=== PATIENT | female | born 1940 | race Caucasian/White ===

== ENCOUNTER 2019-05-15 23:23 | Inpatient (IN) | payer MEDICARE ==
--- NOTE | 2019-05-15 23:49 | ED ---
Lower Extremity - HPI Summary HPI Summary: The patient is an 78 y/o F arriving by ambulance to [facility] from [place] with a chief complaint of right hip pain extending down the leg to the foot onset around 2300. She reports that she had gotten up to go to the bathroom while using her walker and had a sudden onset of the hip pain that worsened with sitting. She describes the pain as a sensation of dislocation. Currently, her pain is rated 7/10 in severity. She notes there is numbness in the leg and foot. She has not taken any medication to treat the pain prior to arrival. She is unsure if she is able to ambulate on the leg as she has not made an attempt since onset. She had a similar experience when she had a dislocated hip with surgical interventions. 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 Garcia. Nonsmoker, no EtOH, no substance use. Medications reviewed. Allergies noted. - History of Current Complaint Chief Complaint: EDHipPelvisInjury Stated Complaint: RT HIP PAIN PER EMS Time Seen by Provider: 05/15/19 23:38 Hx Obtained From: Patient Mechanism Of Injury: Unknown - ambulated to bathroom Onset of Pain: Minutes Onset/Duration: Still Present - 2300 tonight Severity Initially: Moderate Severity Currently: Moderate Pain Intensity: 7 Pain Scale Used: 0-10 Numeric Timing: Lasting Minutes Location: Radiates To - right hip extending down leg Character Of Pain: Aching Associated Signs And Symptoms: Positive: Other - numbess throughout right leg Aggravating Factor(s): Ambulation, Other - sitting Alleviating Factor(s): Nothing Able to Bear Weight: No - pt unsure as she hasn't ambulated since onset Related History: Other - multiple hip dislocations - Allergies/Home Medications Allergies/Adverse Reactions: Allergies Allergy/AdvReac Type Severity Reaction Status Date / Time No Known Allergies Allergy Verified 01/12/18 15:46 Home Medications: Home Medications Aspirin 325 mg PO DAILY 05/16/19 [History Confirmed 05/17/19] Potassium 05/16/19 [History] PMH/Surg Hx/FS Hx/Imm Hx Endocrine/Hematology History: Reports: Hx Diabetes, Hx Thyroid Disease - THYROID LEVELS FINE NOW Cardiovascular History: Reports: Hx Deep Vein Thrombosis - filter inserted Denies: Other Cardiovascular Problems/Disorders - HX BLOOD CLOTS RIGHT LEG Respiratory History: Reports: Hx Asthma - as a child Denies: Other Respiratory Problems/Disorders History: Denies: Other Problems/Disorders Musculoskeletal History: Reports: Hx Arthritis - rheumatoid arthritis, Other Musculoskeletal History - 5 RIGHT HIP LISLOCATIONS Denies: Hx Osteoporosis Sensory History: Reports: Hx Cataracts, Hx Contacts or Glasses Denies: Hx Hearing Aid Opthamlomology History: Reports: Hx Cataracts, Hx Contacts or Glasses Neurological History: Reports: Hx Nerve Disease - CURRENT SHINGLES LEFT ARM AND LEFT PALM Denies: Other Neuro Impairments/Disorders Psychiatric History: Reports: Hx Depression - MILD, ON MEDS - Surgical History Surgical History: Yes Surgery Procedure, Year, and Place: RIGHT HIP total replacement in 2009 with revision in 2013, Dr. Garcia at [facility] [place] Hx Anesthesia Reactions: No Infectious Disease History: No Infectious Disease History: Reports: Hx Shingles - CURRENTLY, MD AWARE Denies: Hx Clostridium Difficile, Hx Hepatitis, Hx Human Immunodeficiency Virus (HIV), Hx of Known/Suspected MRSA, Hx Tuberculosis, Hx Known/Suspected VRE , Hx Known/Suspected VRSA, History Other Infectious Disease, Traveled Outside the [place] in Last 30 Days - Family History Known Family History: Positive: Hypertension, Diabetes - Social History Alcohol Use: None Hx Substance Use: No Substance Use Type: Reports: None Hx Tobacco Use: No Smoking Status (MU): Never Smoked Tobacco Have You Smoked in the Last Year: No Review of Systems - ROS Summary Review of Systems Summary: Home Medications Medication Instructions Recorded Confirmed Type Citalopram TAB* [CeleXA TAB*] 20 mg PO DAILY 02/23/13 05/15/19 History Mometasone NASAL (NF) [Nasonex 1 spray PO DAILY 02/23/13 05/15/19 History (NF)] Mycophenolate Mofetil TAB(*) 1,000 mg PO BID 02/23/13 05/15/19 History [Cellcept TAB(*)] Omeprazole CAP (NF) [Prilosec CAP*] 20 mg PO BID 02/23/13 05/15/19 History Lantus 10 units SUBCUT DAILY 07/25/13 05/15/19 History Acetaminophen TAB* [Tylenol TAB*] 325 mg PO DAILY 08/08/17 05/15/19 History Alendronate Sodium [Alendronate 70 mg PO WEEKLY 08/08/17 05/15/19 History Sodium-] Ciprofloxacin 0.3% OPTH.LAURA* 1 drop BOTH EYES QID 08/08/17 05/15/19 History [Cipro 0.3% Opth*] Erythromycin OPTH OINT* 1 applic RIGHT EYE QID 08/08/17 05/15/19 History [Erythromycin 0.5% OPTH OINT*] Calcium Carbonate/Vitamin D3 1 each PO DAILY 12/28/17 05/15/19 History [Calcium 500 + Vit D Caplet] Cyclosporine 0.05% OPHTH (NF) 1 drop BOTH EYES BID 12/28/17 05/15/19 History [Restasis 0.05% OPHTH] metFORMIN* [Glucophage 500 MG TAB 1,000 mg PO BID 12/28/17 05/15/19 History *] Positive: Other - pain in the right hip extending through the leg to the foot Positive: Numbness - in the right leg All Other Systems Reviewed And Are Negative: Yes Physical Exam - Summary Physical Exam Summary: General: Well-developed, Well-nourished elderly female. No acute distress. Neck: Soft, FROM, (-) lymphadenopathy, (-) thyromegaly, (-) JVD. Cardiovascular: Normal sinus rhythm, (-) murmur. Lungs: Clear to auscultation bilaterally (-) wheezes, (-) rales, (-) rhonchi. Abdomen: Soft, non-tender, non-distended, (-) organomegaly, normal bowel sounds. Back: (-) CVA tenderness Extremities: Tenderness along the right hip and lateral upper thigh. Normal strength and sensation in the right leg. No edema. Skin: Warm, dry, (-) rash. Neuro: Alert and oriented x3, no focal deficits. Psychiatric: Mood normal, affect normal. Triage Information Reviewed: Yes Vital Signs On Initial Exam: Initial Vitals Temp Pulse Resp BP Pulse Ox 97.7 F 75 16 160/81 100 05/15/19 23:27 05/15/19 23:27 05/15/19 23:27 05/15/19 23:27 05/15/19 23:27 Vital Signs Reviewed: Yes Procedures - Sedation Patient Received Moderate/Deep Sedation with Procedure: No Diagnostics - Vital Signs Vital Signs Temp Pulse Resp BP Pulse Ox 05/15/19 23:27 97.7 F 75 16 160/81 100 - Laboratory Result Diagrams: 05/17/19 13:15 05/17/19 05:06 Lab Statement: Any lab studies that have been ordered have been reviewed, and results considered in the medical decision making process. - Radiology Right Hip X-Ray Radiology Interpretation Completed By: ED Physician Summary of Radiographic Findings: Artificial hip on the right. Dislocated superiorly. ED physician has reviewed and interpreted this report. Pending official read. Re-Evaluation - Re-Evaluation First Eval Re-Evaluation Time: 01:20 Change: Unchanged Comment: I discussed all findings with the patient and her son including plan for admission. We discussed plan for administering Fentanyl for pain control. Lower Extremity Course/Dx - Course Course Of Treatment: 78-year-old female with right hip pain after sitting tonight. Patient found to have a dislocation of her right artificial hip. She states she had this hip replaced many years ago. Then had dislocations about 5 times after that. Had it revised. Has been doing well since then until tonight. Patient given fentanyl for pain control. Discussed with orthopedics dermatological surgeon. Patient admitted to the hospitalist. Plan on orthopedic surgery today. - Diagnoses Provider Diagnoses: Dislocation of right hip - Physician Notifications Discussed Care Of Patient With: Yenni Russo - orthopedics Time Discussed With Above Provider: 01:05 Instructed by Provider To: Other - I discussed the patient's case with Dr. Russo including findings on the x-ray. After reviewing the x-ray, she recommends admission to the hospitalist services for pain control with surgery in the OR in the morning. At 0115, I spoke with Dr. Snell, hospitalist, who accepts the pt for admission. Discharge ED - Sign-Out/Discharge Documenting (check all that apply): Patient Departure - Pt accepted for admission by Dr. Snell. - Discharge Plan Condition: Stable Disposition: ADMITTED TO [facility] - Billing Disposition and Condition Condition: STABLE Disposition: Admitted to [facility] - Attestation Statements Document Initiated by Scribe: Yes Documenting Scribe: Lana Pearson Provider For Whom Scribe is Documenting (Include Credential): Dr. Cherise Osei MD Scribe Attestation: Lana Sebastian, scribed for Dr. Cherise Osei MD on 05/17/19 at 2105. Scribe Documentation Reviewed: Yes Provider Attestation: The documentation as recorded by the scribe, Lana Pearson accurately reflects the service I personally performed and the decisions made by me, Dr. Cherise Osei MD Status of Scribe Document: Viewed
--- OUTSIDE RECORDS SUMMARY | 2019-05-15 23:59 | XMS REPORT | Continuity of Care Document ---
:1940 External Reference #:[id number] Author Name Yao Garcia M.D. Address [address] [place] [address] Care Team Providers Name Role Phone Anthony Garvey M.D. - Internal Care Team Information Senior Instructor [phone] Medicine Jayson Lau [employer] - Nurse Care Team Information Senior Instructor [phone] Practitioner Anthony Sahni M.D. - Ophthalmology Care Team Information Senior Instructor Anthony Vidales M.D. - Care Team Information Senior Instructor [phone] Ophthalmology Anthony Saucedo MD - Rheumatology Care Team Information Senior Instructor [phone] Problems Active Problems Provider Date Psoriasis Onset: Hypothyroidism Onset: Type 2 diabetes mellitus Onset: Note: 04/2010 Rheumatoid arthritis Onset: Depressive disorder Onset: Herpes zoster Onset: Corneal ulcer Anthony Acosta M.D. Onset: 01/12/2015 Nuclear senile cataract Anthony Acosta M.D. Onset: 01/12/2015 Combined form of senile cataract Anthony Acosta M.D. Onset: 08/31/2015 Corneal opacity Janneth Levy O.D. Onset: 11/26/2015 Perforated corneal ulcer Anthony Acosta M.D. Onset: 02/28/2017 Seasonal allergy Onset: Marginal corneal ulcer Yao Garcia M.D. Onset: 08/22/2018 Social History Type Date Description Comments Sex Unknown ETOH Use Denies alcohol use Tobacco Use Start: Unknown Patient has never smoked Recreational Drug Use Denies Drug Use Smoking Status Reviewed: 04/02/19 Patient has never smoked Allergies, Adverse Reactions, Alerts Active Allergies Reaction Severity Comments Date Environmental 05/18/2017 Medications Active Medications SIG Qnty Indications Ordering Provider Date Erythromycin Apply To Both 3.500gm H16.041 Yao Garcia, 10/04/2018 5mg/GM Eyes AT Night M.D. Ointment Citalopram Anthony Garvey Hydrobromide M.D. 20mg Tablets Calcium 500 +D Unknown [id number] Tablets Mycophenolate Mofetil 2 twice a day SidJayson NP 500mg Tablets Fluticasone Propionate Anthony Garvey M.D. 50mcg/Act Suspension Restasis 1 drops both 180units Yao Garcia, 0.05% Emulsion eyes twice a M.D. day Ra Cetirizine Unknown 10mg Tablets Metformin HCL ER (Mod) twice a day Anthony Garvey M.[place] 500mg Tablets ER 24HR Aspirin 1 by mouth Unknown 325mg Tablets every day Vitamin D 2 tabs once a Unknown (Cholecalciferol) day in fall/winter, 1 1000Unit Tablets tab/day spring/summer Immunizations Description No Information Available Vital Signs Date Vital Result Comment 05/18/2017 9:11am BP Systolic 100 mmHg BP Diastolic 63 mmHg Heart Rate 76 /min Respiratory Rate 12 /min Results Description No Information Available Procedures Date Code Description Status 02/19/2019 28866 Est Patient Intermediate Exam Completed Medical Devices Description No Information Available Encounters Type Date Location Provider Dx Diagnosis Office Visit 01/08/2019 Yao Camilo, H16.041 Marginal corneal 9:00a romero SUÁREZ M.D. ulcer, right eye Office Visit 11/29/2018 Yao Camilo, H16.041 Marginal corneal 1:30p romero SUÁREZ M.D. ulcer, right eye Office Visit 11/08/2018 Yao Camilo, H16.041 Marginal corneal 11:45a romero SUÁREZ M.D. ulcer, right eye Office Visit 10/04/2018 Anthony Acosta, Yao Garcia, H16.041 Marginal corneal 2:15p romero SUÁREZ M.D. ulcer, right eye Assessments Date Code Description Provider 04/02/2019 H16.041 Marginal corneal ulcer, right eye Yao Garcia M.D. 02/19/2019 H16.041 Marginal corneal ulcer, right eye Yao Garcia M.D. 01/08/2019 H16.041 Marginal corneal ulcer, right eye Yao Garcia M.D. 11/29/2018 H16.041 Marginal corneal ulcer, right eye Yao Garcia M.D. 11/08/2018 H16.041 Marginal corneal ulcer, right eye Yao Garcia M.D. 10/04/2018 H16.041 Marginal corneal ulcer, right eye Yao Garcia M.D. Plan of Treatment 04/02/2019 - Yao Garcia M.D.H16.041 Marginal corneal ulcer, right eyeComments:Smoking can increase the risk of developing or worsening any eye related disease, as well as affect your overall health. If you are a smoker, we strongly recommend that you quit.If you are not a smoker, we strongly recommend that you do not start. You have a Corneal Ulcer in your right eye. Please follow Dr. Garcia's instructions.Follow up:2 Month Follow Up CORNEA CHECK At your next visit, we are not planning to dilate your eyes. However, if you have any changes in your vision or new symptoms, there are certain situations that require us to dilate your eyes. If Dr. Garcia requests any additional testing, that may require extra time. If you have any questions before your next appointment, please call our office at . Functional Status Description No Information Available Mental Status Description No Information Available Referrals Description No Information Available
--- OUTSIDE RECORDS SUMMARY | 2019-05-15 23:59 | XMS REPORT | Continuity of Care Document ---
:1940 External Reference #:[id number] Author Name KRISTIN Gupta (transmitted by agent of provider Earnestine Porter) Address [address] [place] [id number] Care Team Providers Name Role Phone Anthony Garvey MD - Family Medicine Care Team Information Breastfeeding Educator Anthony Acosta MD - Ophthalmology Care Team Information Breastfeeding Educator Problems Active Problems Provider Date Mooren's ulcer Joseph Alvarez M.D. Onset: 05/14/2012 Corneal ulcer Joseph Alvarez M.D. Onset: 05/14/2012 Medications [facility] (Current) Use Encounter Joseph Alvarez M.D. Onset: Psoriasis Joseph Alvarez M.D. Onset: 10/12/2012 Osteoporosis Joseph Alvarez M.D. Onset: 09/18/2013 Taking medication KRISTIN Gupta Onset: 07/11/2014 Localized, primary osteoarthritis of the pelvic Leah Marry Garcia Onset: region and thigh Social History Type Date Description Comments Sex Unknown Tobacco Use Start: Unknown Never Smoked Cigarettes Smoking Status Reviewed: 04/18/19 Never Smoked Cigarettes ETOH Use Never used alcohol Tobacco Use Start: Unknown Patient has never smoked Exercise Type/Frequency Exercises regularly Allergies, Adverse Reactions, Alerts Active Allergies Reaction Severity Comments Date Methotrexate 08/12/2013 Inactive Allergies NKDA 12/21/2010 Methotrexate severe abnormal liver tests feb-04/19/2011 NKDA 08/12/2013 Medications Active Medications SIG Qnty Indications Ordering Date Provider Ra Allergy Relief take 1 tablet by 30tabs J30.9 Anthony Saucedo, 02/27/2019 10mg mouth every M.D. Tablets evening Celexa 1 1/2 tablets by 90tabs Jayson Lau, 02/18/2019 20mg Tablets mouth every day [employer] Rituxan administer 375 Jayson Lau, 06/06/2018 100mg/10ML mg/m2 iv every 12 [employer] Solution weeks Mycophenolate Mofetil take 2 tablets by 120tabs Z79.899 Jayson Lau, mouth twice a day [employer] 500mg Tablets H16.001 Calcium 600-D 1 by mouth M85.9 Unknown [id number] Tablets Simply Saline Unknown 0.9% Aerosol Tylenol as needed Unknown 325mg Tablets Erythromycin apply into three eye four Unknown 5mg/GM Ointment times a day Restasis Unknown 0.05% Emulsion Potassium every morning (OTC) Unknown 99mg Tablets Aspirin Ec take 1 tab daily. Unknown 325mg Tablets DR Metformin HCL 1 by mouth twice a day E11.65 Unknown 500mg Tablets Medications Administered in Office Medication SIG Qnty Indications Ordering Provider Date Humira No Charge Jayson LauKRISTIN 06/13/2017 Injection Humira No Charge Nurse Visit 05/30/2017 Injection Immunizations CPT Code Status Date Vaccine Reaction Lot # [id number] Given 05/23/2017 Pneumonia Vaccine [id number] Given 03/30/2017 Influenza Virus Vaccine, no immediate reaction, [id number] Quadrivalent, Split, pt tolerated well Preservative Free [id number] Given 04/29/2015 Pneumococcal Conjugate Vaccine 13 Valent For Intramuscular Use Vital Signs Date Vital Result Comment 04/18/2019 11:06am Height 65.25 inches 5'5.25" Weight 126.00 lb BP Systolic 104 mmHg BP Diastolic 62 mmHg BMI (Body Mass Index) 20.8 kg/m2 02/18/2019 2:50pm Height 65.25 inches 5'5.25" Weight 128.12 lb Heart Rate 86 /min BP Systolic 100 mmHg BP Diastolic 58 mmHg Body Temperature 98.0 F O2 % BldC Oximetry 97 % BMI (Body Mass Index) 21.2 kg/m2 Results Test Date Facility Test Result H/L Range Note Laboratory test 03/21/2019 [facility] Quantiferon Gold <pending > finding [address] [place] [address] [phone] Hepatitis Acute 03/21/2019 [facility] Hepatitis C <pending> Panel [address] [place] [address] [phone] Hepatitis A AB Igm <pending> Hepatitis B Core AB Igm <pending> Hepatitis B Surface Ag <pending> Laboratory test 03/21/2019 [facility] C Reactive < 1.00 Normal <8.[address] Protein mg/[place] [address] [phone] Erythrocyte Sed Rate 3 mm/Hr Normal 0-29 CBC Auto 03/21/2019 [facility] White Blood 7.2 10^3/uL Normal 3.5-10.[address] [place] [address] [phone] Red Blood Count 5.12 10^6/uL High 3.70-4.87 Hemoglobin 14.2 g/dL Normal 12.0-16.0 Hematocrit 43 % Normal 35-47 Mean Corpuscular Volume 85 fL Normal 80-97 Mean Corpuscular Hemoglobin 28 pg Normal 27-31 Mean Corpuscular HGB Conc 33 g/dL Normal 31-36 Red Cell Distribution Width 14 % Normal 10-15 Platelet Count 282 10^3/uL Normal 150-450 Mean Platelet Volume 8.1 fL Normal 7.4-10.4 Abs Neutrophils 4.2 10^3/uL Normal 1.5-7.7 Abs Lymphocytes 2.1 10^3/uL Normal 1.0-4.8 Abs Monocytes 0.7 10^3/uL Normal 0-0.8 Abs Eosinophils 0.3 10^3/uL Normal 0-0.6 Abs Basophils 0.0 10^3/uL Normal 0-0.2 Abs Nucleated RBC 0.0 10^3/uL Granulocyte % 57.5 % Lymphocyte % 28.4 % Monocyte % 9.0 % Eosinophil % 4.4 % Basophil % 0.7 % Nucleated Red Blood Cells % 0.0 Comp Metabolic 03/21/2019 [facility] Sodium 138 mmol/L Normal 135-[address] [place] [address] [phone] Potassium 4.4 mmol/L Normal 3.5-5.0 Chloride 103 mmol/L Normal 101-111 Co2 Carbon Dioxide 28 mmol/L Normal 22-32 Anion Gap 7 mmol/L Normal 2-11 Glucose 149 mg/dL High 70-100 Blood Urea Nitrogen 19 mg/dL Normal 6-24 Creatinine 0.61 mg/dL Normal 0.51-0.95 BUN/Creatinine Ratio 31.1 High 8-20 Calcium 9.5 mg/dL Normal 8.6-10.3 Total Protein 6.4 g/dL Normal 6.4-8.9 Albumin 4.2 g/dL Normal 3.2-5.2 Globulin 2.2 g/dL Normal 2-4 Albumin/Globulin Ratio 1.9 Normal 1-3 Total Bilirubin 0.40 mg/dL Normal 0.2-1.0 Alkaline Phosphatase 41 U/L Normal 34-104 Alt 13 U/L Normal 7-52 Ast 17 U/L Normal 13-39 Egfr Non- 94.4 >60 Egfr 114.2 >60 1 CBC Auto 01/28/2019 [facility] White Blood 5.8 10^3/uL Normal 3.5-10.[address] [place] [address] [phone] Red Blood Count 4.97 10^6/uL High 3.70-4.87 Hemoglobin 14.2 g/dL Normal 12.0-16.0 Hematocrit 41 % Normal 35-47 Mean Corpuscular Volume 82 fL Normal 80-97 Mean Corpuscular Hemoglobin 29 pg Normal 27-31 Mean Corpuscular HGB Conc 35 g/dL Normal 31-36 Red Cell Distribution Width 14 % Normal 10-15 Platelet Count 248 10^3/uL Normal 150-450 Mean Platelet Volume 8.5 fL Normal 7.4-10.4 Abs Neutrophils 3.4 10^3/uL Normal 1.5-7.7 Abs Lymphocytes 1.6 10^3/uL Normal 1.0-4.8 Abs Monocytes 0.6 10^3/uL Normal 0-0.8 Abs Eosinophils 0.2 10^3/uL Normal 0-0.6 Abs Basophils 0.0 10^3/uL Normal 0-0.2 Abs Nucleated RBC 0.0 10^3/uL Granulocyte % 58.7 % Lymphocyte % 27.4 % Monocyte % 9.9 % Eosinophil % 3.8 % Basophil % 0.2 % Nucleated Red Blood Cells % 0.0 Comp Metabolic 01/28/2019 [facility] Sodium 139 mmol/L Normal 135-[address] [place] [address] [phone] Potassium 4.3 mmol/L Normal 3.5-5.0 Chloride 104 mmol/L Normal 101-111 Co2 Carbon Dioxide 27 mmol/L Normal 22-32 Anion Gap 8 mmol/L Normal 2-11 Glucose 188 mg/dL High 70-100 Blood Urea Nitrogen 24 mg/dL Normal 6-24 Creatinine 0.85 mg/dL Normal 0.51-0.95 BUN/Creatinine Ratio 28.2 High 8-20 Calcium 9.4 mg/dL Normal 8.6-10.3 Total Protein 6.2 g/dL Low 6.4-8.9 Albumin 4.1 g/dL Normal 3.2-5.2 Globulin 2.1 g/dL Normal 2-4 Albumin/Globulin Ratio 2.0 Normal 1-3 Total Bilirubin 0.50 mg/dL Normal 0.2-1.0 Alkaline Phosphatase 37 U/L Normal 34-104 Alt 12 U/L Normal 7-52 Ast 17 U/L Normal 13-39 Egfr Non- 64.4 >60 Egfr 77.9 >60 2 Laboratory test 01/28/2019 [facility] C Reactive < 1.00 Normal <8.01 finding 101 Protein mg/[place] [address] [phone] Erythrocyte Sed Rate 3 mm/Hr Normal 0-29 Laboratory test 11/19/2018 [facility] Hemoglobin A1c 8.8 % High 4.0-5.6 3 finding 101 (Glyco HGB) [place] [address] [phone] Comp Metabolic 11/19/2018 [facility] Sodium 133 Low 135-[address] mmol/[place] [address] [phone] Potassium 4.0 mmol/L Normal 3.5-5.0 Chloride 101 mmol/L Normal 101-111 Co2 Carbon Dioxide 21 mmol/L Low 22-32 Anion Gap 11 mmol/L Normal 2-11 Glucose 192 mg/dL High 70-100 Blood Urea Nitrogen 33 mg/dL High 6-24 Creatinine 0.68 mg/dL Normal 0.51-0.95 BUN/Creatinine Ratio 48.5 High 8-20 Calcium 9.2 mg/dL Normal 8.6-10.3 Total Protein 6.9 g/dL Normal 6.4-8.9 Albumin 4.3 g/dL Normal 3.2-5.2 Globulin 2.6 g/dL Normal 2-4 Albumin/Globulin Ratio 1.7 Normal 1-3 Total Bilirubin 0.50 mg/dL Normal 0.2-1.0 Alkaline Phosphatase 41 U/L Normal 34-104 Alt 16 U/L Normal 7-52 Ast 19 U/L Normal 13-39 Egfr Non- 83.3 >60 Egfr 100.7 >60 4 Laboratory test 11/19/2018 [facility] C Reactive < 1.00 Normal <8.[address] Protein mg/[place] [address] [phone] CBC Auto Diff 11/19/2018 [facility] White Blood 7.5 Normal 3.5 -10.[address] Count 10^3/[place] [address] [phone] Red Blood Count 5.44 10^6/uL High 3.70-4.87 Hemoglobin 14.9 g/dL Normal 12.0-16.0 Hematocrit 45 % High 33-41 Mean Corpuscular Volume 83 fL Normal 80-97 Mean Corpuscular Hemoglobin 27 pg Normal 27-31 Mean Corpuscular HGB Conc 33 g/dL Normal 31-36 Red Cell Distribution Width 15 % Normal 10.5-15 Platelet Count 274 10^3/uL Normal 150-450 Mean Platelet Volume 8.0 fL Normal 7.4-10.4 Abs Neutrophils 4.1 10^3/uL Normal 1.5-7.7 Abs Lymphocytes 2.3 10^3/uL Normal 1.0-4.8 Abs Monocytes 0.8 10^3/uL Normal 0-0.8 Abs Eosinophils 0.2 10^3/uL Normal 0-0.6 Abs Basophils 0.1 10^3/uL Normal 0-0.2 Abs Nucleated RBC 0 10^3/uL Granulocyte % 54.3 % Lymphocyte % 31.0 % Monocyte % 10.8 % Eosinophil % 2.8 % Basophil % 1.1 % Nucleated Red Blood Cells % 0 Laboratory test 11/19/2018 [facility] Erythrocyte Sed 1 mm/Hr Normal 0-[address] Rate [place] [id number] [phone] 1 Because ethnic data is not always readily available, this report includes an eGFR for both -Americans and non- Americans. The National Kidney Disease Education Program (NKDEP) does not endorse the use of the MDRD equation for patients that are not between the ages of 18 and 70, are , have extremes of body size, muscle mass, or nutritional status, or are non- or non-. According to the National Kidney Foundation, irrespective of diagnosis, the stage of the disease is based on the level of kidney function: Stage Description GFR(mL/min/1.73 m(2)) 1 Kidney damage with normal or decreased GFR 90 2 Kidney damage with mild decrease in GFR 60-89 3 Moderate decrease in GFR 30-59 4 Severe decrease in GFR 15-29 5 Kidney failure <15 (or dialysis) 2 Because ethnic data is not always readily available, this report includes an eGFR for both -Americans and non- Americans. The National Kidney Disease Education Program (NKDEP) does not endorse the use of the MDRD equation for patients that are not between the ages of 18 and 70, are , have extremes of body size, muscle mass, or nutritional status, or are non- or non-. According to the National Kidney Foundation, irrespective of diagnosis, the stage of the disease is based on the level of kidney function: Stage Description GFR(mL/min/1.73 m(2)) 1 Kidney damage with normal or decreased GFR 90 2 Kidney damage with mild decrease in GFR 60-89 3 Moderate decrease in GFR 30-59 4 Severe decrease in GFR 15-29 5 Kidney failure <15 (or dialysis) 3 Therapeutic target for the treatment of diabetes mellitus patients is <7% HBA1C, and in selective patients <6.0%. Please refer to [place] [employer] diabetic care guidelines for further information. 4 Because ethnic data is not always readily available, this report includes an eGFR for both -Americans and non- Americans. The National Kidney Disease Education Program (NKDEP) does not endorse the use of the MDRD equation for patients that are not between the ages of 18 and 70, are , have extremes of body size, muscle mass, or nutritional status, or are non- or non-. According to the National Kidney Foundation, irrespective of diagnosis, the stage of the disease is based on the level of kidney function: Stage Description GFR(mL/min/1.73 m(2)) 1 Kidney damage with normal or decreased GFR 90 2 Kidney damage with mild decrease in GFR 60-89 3 Moderate decrease in GFR 30-59 4 Severe decrease in GFR 15-29 5 Kidney failure <15 (or dialysis) Procedures Date Code Description Status 12/26/2017 598657737 Bone Mineral Density Test Completed 05/18/2017 123102958 Diabetic Retinal Eye Exam Completed 11/12/2015 [id number] Bone Mineral Density Test Completed 07/11/2013 [id number] Bone Mineral Density Test Completed Medical Devices Description No Information Available Encounters Type Date Location Provider Dx Diagnosis Office Visit 02/18/2019 Rheumatology [place], H16.001 Unspecified 3:[facility] - [employer] corneal ulcer, Ccmob right eye 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.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, right eye Z79.899 Other long wall shear operator (current) drug therapy E11.65 Type 2 diabetes mellitus with hyperglycemia M85.852 Oth disrd of bone density and structure, left thigh M06.80 Other specified rheumatoid arthritis, unspecified site Assessments Date Code Description Provider 04/18/2019 H16.001 Unspecified corneal ulcer, right eye Zsofia Sid, [employer] 04/18/2019 H15.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, right eye Zsofia Sid, [employer] 04/18/2019 M06.80 Other specified rheumatoid arthritis, Zsofia Sid, [employer] unspecified site 04/18/2019 Z79.899 Other nursing home (current) drug therapy Zsofia Sid, [employer] 04/18/2019 Z23 Encounter for immunization Zsofia Sid, [employer] 04/18/2019 E11.65 Type 2 diabetes mellitus with hyperglycemia Zsofia Sid , [employer] 02/18/2019 H16.001 Unspecified corneal ulcer, right eye Zsofia Sid, [employer] 02/18/2019 H15.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, right eye Zsofia Sid, [employer] 02/18/2019 Z79.899 Other long wall shear operator (current) drug therapy Zsofia Sid, [employer] 02/18/2019 E11.65 Type 2 diabetes mellitus with hyperglycemia KRISTIN Gupta 02/18/2019 M85.852 Other specified disorders of bone density and KRISTIN Gupta structure, left thigh 02/18/2019 M06.80 Other specified rheumatoid arthritis, KRISTIN Gupta unspecified site Plan of Treatment Future Appointment(s):08/19/2019 2:00 pm - KRISTIN Gupta at [facility]04/18/2019 - CRAIG GuptaPH16.001 Unspecified corneal ulcer, right eyeComments:We are reducing the Rituxan infusions to every 3 month.Please continue on mycophenolate.Will get labs today.I call if we need to make any other changeFollow up:4 month labs rzxckZ70.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, right eyeM06.80 Other specified rheumatoid arthritis, unspecified siteZ79.899 Other long wall shear operator (current) drug [id number] Encounter for immunizationComments:Please get the flu vaccine at [facility] vaccine : There is a new shingles vaccine called Shingrix. SHINGRIX is a vaccine indicated for prevention of herpes zoster (shingles) in adults aged 50 years and older and in immunocompromised individuals.This vaccine is a 2 tier vaccine.I sent order for this vaccine to your pharmacy.Please have at 3 weeks between the flu and the Shingle vaccine.E11.65 Type 2 diabetes mellitus with hyperglycemia Goals 04/18/2019 - CRAIG GuptaPE11.65 Type 2 diabetes mellitus with hyperglycemiaGoal Hemoglobin A1c is less than 7.0%. Goal Blood pressure is less than 130/85. Goal LDL (bad cholesterol) is less than 100. Functional Status Description No Information Available Mental Status Description No Information Available Referrals Description No Information Available
[2019-05-16] MEDS ORDERED: fentaNYL* 50 MCG/ML 2 ML VIAL (100 MCG VIAL) IV SLOW PU ONE (01:15)
[2019-05-16 03:24] LABS: ABS Basophils 0.1 10^3/ul (0-0.2); ABS Lymphocytes 1.3 10^3/ul (1.0-4.8); ABS Monocytes 0.6 10^3/ul (0-0.8); ABS Neutrophils 8.1 10^3/ul (1.5-7.7); Eosinophil % 0.2 %; Hematocrit 39 % (35-47); Hemoglobin 12.9 g/dL (12.0-16.0); Lymphocyte % 12.8 %; Mean Corpuscular HGB Conc 33 g/dL (31-36); Mean Corpuscular Hemoglobin 28 pg (27-31); Mean Corpuscular Volume 85 fL (80-97); Mean Platelet Volume 7.6 fL (7.4-10.4); Platelet Count 232 10^3/uL (150-450); Red Blood Count 4.55 10^6 /uL (3.70-4.87); Red Cell Distribution Width 15 % (10-15); White Blood Count 10.2 10^3/uL (3.5-10.8)
[2019-05-16 03:40] LABS: ALT 12 U/L (7-52); Albumin 3.7 g/dL (3.2-5.2); Albumin/Globulin Ratio 1.5 (1-3); Alkaline Phosphatase 40 U/L (34-104); BUN/Creatinine Ratio 37.5 (8-20); Blood Urea Nitrogen 21 mg/dL (6-24); CO2 Carbon Dioxide 23 mmol/L (22-32); Calcium 9.1 mg/dL (8.6-10.3); Chloride 100 mmol/L (101-111); EGFR Non-African American 104.2 (>60); Globulin 2.4 g/dL (2-4); Glucose 179 mg/dL (70-100); Sodium 133 mmol/L (135-145); Total Protein 6.1 g/dL (6.4-8.9)
[2019-05-16 03:41] LABS: INR 1.03 (0.82-1.09)
[2019-05-16 03:44] LABS: Anion Gap 10 mmol/L (2-11)
[2019-05-16 04:34] LABS: Urine Appearance Clear; Urine Bilirubin Negative (Negative); Urine Blood Negative (Negative); Urine Color Yellow; Urine Glucose Negative (Negative); Urine Ketones Trace (Negative); Urine Nitrite Negative (Negative); Urine Protein Negative (Negative); Urine Specific Gravity 1.018 (1.010-1.030); Urine Urobilinogen Negative (Negative)
[2019-05-16 04:46] LABS: Potassium Redraw 3.9 mmol/L (3.5-5.0)
[2019-05-16] MEDS: NS 0.9% 1000 ML** 1,000 ML IV SCH ×3 (05:30→19:47)
[2019-05-16] MEDS: Erythromycin OPTH OINT* APPLIC OINT RIGHT EYE SCH ×4 (08:10→21:10)
[2019-05-16] MEDS: Fluticasone NASAL SPRAY 50MCG* 16 gm SPRAY BTL BOTH NARES SCH (08:11)
--- NOTE | 2019-05-16 09:08 | HP ---
CC: Dr. Anthony Garvey; Dr. Yenni Russo* ADMISSION HISTORY AND PHYSICAL: DATE OF ADMISSION: 05/16/19 CHIEF COMPLAINT: Right hip pain. HISTORY OF PRESENT ILLNESS: This is an 78-year-old female with past medical history of diabetes and right total hip replacement, status post multiple dislocations requiring conversion to a constrained liner with femoral head exchange in 2013, who comes in again with right hip pain. The patient stated that for the last few days she felt a pain-like sensation as if she was having another episode of dislocation; however, yesterday when she was in the bathroom , she felt her right hip was extending down her right leg, at which point she pulled on the EMS plug at the [facility] bathroom and was subsequently transported to the ER. In the ER, the patient was noted to have dislocation at the right hip and ortho was consulted, who recommended admission by hospitalist. The patient denies any other symptoms other than the severe pain in the right hip and she denies any fever, chills, any nausea, vomiting, any chest pain or shortness of breath, although she does state that she has some chronic shortness of breath and rhinorrhea due to allergic rhinitis. PAST MEDICAL HISTORY: As mentioned, significant for multiple right hip surgeries. 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 She also has some footdrop and nerve damage on the right hip due to some hematoma. 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 PAST SURGICAL HISTORY: She has had the original hip surgery in 2009 with followup constrained liner placement of the right femoral head in 2013, cholecystectomy, D and C. HOME MEDICATIONS: Include: 1. Erythromycin 0.5% ophthalmic to right eye 4 times a day. 2. Celexa 20 mg oral daily. 3. Calcium with vitamin D 1 tablet oral daily. 4. Metformin 1000 mg p.o. b.i.d. 5. CellCept 1000 mg p.o. b.i.d. 6. Nasonex 1 spray daily. 7. Aspirin 324 mg oral daily. 8. Potassium unknown dose daily. ALLERGIES: No known drug allergies. FAMILY HISTORY: Noncontributory at her age. SOCIAL HISTORY: She is a nonsmoker, nondrinker. She has been living at the [facility]. She is DNR/DNI with a MOLST form filled out by the ER physician today and the patient's son, Vasyl, who is at bedside is her primary surrogate decision maker and her other son, Lane, is the secondary decision maker. REVIEW OF SYSTEMS: A 14-point review of systems did not reveal any new information, other than what is mentioned in the HPI. PHYSICAL EXAMINATION GENERAL: The patient is awake, alert, and oriented to time; place; and person. She does not appear to be in any acute respiratory distress. VITAL SIGNS: In the ER, temperature was 97.7, BP was noted to be 143/73, heart rate 79, respiratory rate 16, saturating 100% on room air. HEAD AND NECK: Atraumatic, normocephalic. Pupil reactive on the left. Right eye was closed. Oral mucosa was dry. NECK: Supple. No jugular venous distention. LUNGS: Clear to auscultation bilaterally. No wheezing, rhonchi, or rales. HEART: S1, S2. Regular rate and rhythm. ABDOMEN: Soft, nontender, nondistended. EXTREMITIES: Her right hip was obviously displaced and there was some footdrop still present on the right lower extremity. No other cyanosis or clubbing. DIAGNOSTIC STUDIES/LAB DATA: Labs: CBC was unremarkable. Coagulation profile shows INR of 1.03. Comprehensive metabolic panel shows mild hyponatremia with sodium of 133. Otherwise, normal LFTs. IMPRESSION: This is an 78-year-old female with diabetes, rheumatoid arthritis, and right total hip replacement; status post constrained liner placement who comes in again with another bout of displaced right hip. ASSESSMENT: 1. Right hip prosthesis displaced. We will keep the patient n.p.o. Orthopedics already consulted, who will evaluate the patient in the morning for possible surgical correction. We will start the patient on IV fluid in the meantime. 2. History of rheumatoid arthritis. Hold the CellCept. 3. History of depression. We will hold Celexa until surgery. 4. History of diabetes. We will hold metformin until after the surgery and we will just continue the fingerstick monitoring. 5. DVT prophylaxis. The patient is high risk for DVT given her previous history of DVT and her age; however, we will refrain from any DVT prophylaxis until after the surgical correction is performed. 6. Code status. The patient is DNR/DNI with the sons being the surrogate decision makers. [id number]/[facility] #: [id number] MTDD
--- NOTE | 2019-05-16 13:14 | PN ---
Subjective Date of Service: 05/16/19 Interval History: Patient had no complains, pain controlled. Spoke to surgical team Dr. Garcia, understand the surgery will happen on Sat 8am. Objective Active Medications: Enoxaparin Sodium (Lovenox(*)) 30 mg SUBCUT Q12H [facility] Erythromycin (Erythromycin Opth Oint*) 1 applic RIGHT EYE QID [facility] Last Admin: 05/16/19 12:28 Dose: Not Given Fluticasone Propionate (Flonase Nasal [place] 50mcg*) 1 spray BOTH NARES DAILY [facility] Last Admin: 05/16/19 08:11 Dose: 1 spray Sodium Chloride (Ns 0.9% 1000 Ml) 1,000 mls @ 75 mls/hr IV PER RATE [facility] Last Admin: 05/16/19 05:55 Dose: 75 mls/hr Morphine Sulfate (Morphine Inj (Syringe))*) 2 mg IV Q4H PRN PRN Reason: PAIN - SEVERE Vital Signs - 8 hr 05/16/19 05/16/19 05/16/19 05:29 05:48 05:49 Temperature 99.5 F 98.7 F Pulse Rate 67 69 73 Respiratory 16 16 Rate Blood Pressure 128/58 134/72 135/74 (mmHg) O2 Sat by Pulse 97 99 96 Oximetry 05/16/19 05/16/19 05/16/19 07:44 08:19 11:22 Temperature 99.4 F 97.8 F Pulse Rate 81 79 Respiratory 17 18 17 Rate Blood Pressure 117/50 114/71 (mmHg) O2 Sat by Pulse 94 97 Oximetry 05/16/19 11:34 Temperature 98.2 F Pulse Rate 73 Respiratory 18 Rate Blood Pressure 129/62 (mmHg) O2 Sat by Pulse 97 Oximetry Oxygen Devices in Use Now: None Exam: GEN: pleasant, NAD HEART: S1S2, regular rate and rhythm, no murmur Lung: clear Abdomen: soft, non tender. Extremity: right hip displaced, restricted movement, calves supple bilaterally. 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 - Patient Problems (1) Hip dislocation, right Current Visit: Yes Status: Acute Code(s): S73.004A - UNSPECIFIED DISLOCATION OF RIGHT HIP, INITIAL ENCOUNTER SNOMED Code(s): 002013692 Comment: - recurrent hip dislocation with history of right hip replacement and revision surgery - plan for op on Sat 8am - ortho following (2) DVT prophylaxis Current Visit: Yes Status: Acute Code(s): Z29.9 - ENCOUNTER FOR PROPHYLACTIC MEASURES, UNSPECIFIED SNOMED Code(s): 447093696 Comment: - start Lovenox 30mg bid pre op as prophylaxis based on current recommendations - In patients undergoing major othropedic surgery, LMWH have been shown in randomized trials to be highly effective, and associated with low risk of major bleeding. Thus currently is the first line. Duration will be a miminium 10-14 days and extending to 35 days even. - stop Lovenox on Sat morning. Status and Disposition: Inpatient Medicine, awaiting operation. Attestation Documenting Resident: Wendy Blanchard Supervising Physician: Lisa Aquino Attestation: This service has been performed in part by a resident under the direction of a teaching physician.I, Lisa Aquino, performed the service, or was physically present during the critical, or alcantara portions of the service, furnished by the resident. I participated in the management of the patient.
[2019-05-16] MEDS: Morphine INJ* 2 MG/ML 1 ML SYRINGE (TWO MG - NEW SYRINGE VERSION) IV PRN ×2 (14:31→21:13)
[2019-05-16] MEDS ORDERED: Enoxaparin(*) 30 MG/0.3 ML SYR SUBCUT SCH (18:00)
--- NOTE | 2019-05-16 20:46 | CONS ---
ORTHOPEDIC CONSULTATION NOTE: DATE OF CONSULT: 05/16/19 CHIEF COMPLAINT: Right hip pain. HISTORY OF PRESENT ILLNESS: Ms. Bermudez is an 78-year-old female, who has an unclear dislocation event of the right hip. She initially had in 2009 right total hip arthroplasty with Dr. Topete and suff denisa from recurrent instability. I saw the patient in 2013 and revised the hip to a constrained line r. Since then, she has not had dislocations. She does live at [place] and does have some dementia. She has footdrop on the right in the past because of prior injury and hematoma. The patient report s that she did not have a fall and no fall was witnessed. She came into [facility] with p ain and a deformed, shortened, rotated right lower extremity. Radiographs show dislocation of the ri ght total hip arthroplasty with failure of the constrained liner. She reports 6/10 aching pain in th e right hip. Her pain is increased with any attempt to movement and decreased with rest. PAST MEDICAL HISTORY: Diabetes, osteoarthritis, history of DVT, PE, depression, anxiety, seasonal al lergies, some dementia, right peroneal nerve palsy, rheumatoid arthritis, corneal melt syndrome. PAST SURGICAL HISTORY: Multiple right hip surgeries, cholecystectomy, D and C. HOME MEDICATIONS: 1. Ophthalmic erythromycin. 2. Celexa. 3. Calcium with vitamin D. 4. Metformin. 5. CellCept. 6. Nasonex. 7. Aspirin. 8. Potassium. ALLERGIES: No known drug allergies. FAMILY HISTORY: Negative. SOCIAL HISTORY: The patient lives at [place]. She is DNR/DNI. Her son, Vasyl, is her surrogate decision maker. No tobacco, alcohol, or recreational drugs. Normally ambulates with a rolling walker . REVIEW OF SYSTEMS: Fourteen systems reviewed with the patient today. Positive for the right hip claudia n, some decreased vision. Negative for fevers, chills, chest pain, shortness of breath. Otherwise, the patient reports review of systems is negative or not relevant. PHYSICAL EXAM: Vitals: Temperature 97.8, pulse of 79, blood pressure 114/71. General: The patient is a well-nourished female, alert and oriented to person and place, but not time; in no apparent dist ress, pleasant mood and appropriate affect. Gait is not assessed. Heart: S1 and S2. Lungs: Clear to auscultation in all lung knox. No obvious wheezes, rales, or rhonchi. Abdomen: Soft, nontende r, nondistended. Bowel sounds in 4 quadrants. Right lower extremity: The patient's skin is intact. She has shortened, rotated hip; tenderness with any palpation around the hip. Distally, she demons trates dorsiflexion and plantarflexion. She does have some weak dorsiflexion, which is her baseline. She has full sensation to light touch and a 2+ palpable DP pulse. Her foot is warm and well perfus ed. There are varicosities. DIAGNOSTIC STUDIES/LAB DATA: Radiographs: Multiple plain films of the right hip show the dislocated hip with a constrained liner failure. There is no obvious loosening around the stem or acetabulum. Labs from today show white blood cells 10.2, hematocrit 39, platelets 232. INR 1.03. Sodium 133, ch loride 100, BUN and creatinine 21 and 0.5. Urine is negative for infection. ASSESSMENT AND PLAN: Ms. Bermudez is an 78-year-old female with failure of her constrained liner and di slocation of the right total hip arthroplasty. Today, the patient, her son and I discussed operative and nonoperative treatment options. She is in pain and the implant is dislocated; therefore, nonoperative treatment is not a good option at this po int. The patient's son made it clear that they would want the minimal surgery possible. We will nee d to take her to the operating room for an open reduction. We can attempt to place another constrain ed liner and have strict posterior hip precautions. If this constrained liner cannot be placed, we w ould have to revise at least the acetabulum. The patient's son understands these would be intraopera tive decisions and I will do the minimal amount possible. This is per his wishes and the patient's w ishes. We will schedule her for 05/18/19 early a.m. operative time. We are currently ordering the c orrect liner, hardware and instrumentation for the revision surgery that is possible. For now, she w ill be in bed. Her leg is well perfused. Her pain is well controlled. She will have a Cortes cathet er. She should have frequent position changes to avoid any decubitus ulcers. She should have p.r.n. analgesia. The patient's son will be signing consent for her and he agrees to come in on Monday mo rning the day of the surgery. [id number]/[facility] #: [id number]
[2019-05-16] MEDS: Enoxaparin(*) 30 MG/0.3 ML SYR SUBCUT SCH (21:08)
[2019-05-16] MEDS ORDERED: Dextrose 50% VIAL 50 ml IV PUSH PRN (22:46)
[2019-05-16] MEDS: Insulin LISPRO* 1 UNITS UNIT SUBCUT SCH (22:58)
[2019-05-17] MEDS: Morphine INJ* 2 MG/ML 1 ML SYRINGE (TWO MG - NEW SYRINGE VERSION) IV PRN ×4 (01:20→22:12)
[2019-05-17 05:31] LABS: ABS Basophils 0.1 10^3/ul (0-0.2); ABS Eosinophils 0.1 10^3/ul (0-0.6); ABS Lymphocytes 1.5 10^3/ul (1.0-4.8); ABS Monocytes 0.9 10^3/ul (0-0.8); ABS Neutrophils 5.6 10^3/ul (1.5-7.7); Eosinophil % 1.7 %; Hematocrit 37 % (35-47); Hemoglobin 12.4 g/dL (12.0-16.0); Lymphocyte % 18.4 %; Mean Corpuscular HGB Conc 34 g/dL (31-36); Mean Corpuscular Hemoglobin 28 pg (27-31); Mean Corpuscular Volume 84 fL (80-97); Mean Platelet Volume 7.7 fL (7.4-10.4); Platelet Count 233 10^3/uL (150-450); Red Blood Count 4.43 10^6 /uL (3.70-4.87); Red Cell Distribution Width 14 % (10-15); White Blood Count 8.3 10^3/uL (3.5-10.8)
[2019-05-17 05:53] LABS: BUN/Creatinine Ratio 23.5 (8-20); Calcium 7.8 mg/dL (8.6-10.3); EGFR African American 140.4 (>60); Potassium 3.3 mmol/L (3.5-5.0)
[2019-05-17] MEDS ORDERED: Potassium Chlor TAB* 20 MEQ TAB.ER PO ONE (07:21)
[2019-05-17 07:44] LABS: Magnesium 1.9 mg/dL (1.9-2.7)
[2019-05-17] MEDS: Insulin LISPRO* 1 UNITS UNIT SUBCUT SCH ×4 (08:27→20:43)
[2019-05-17] MEDS: Enoxaparin(*) 30 MG/0.3 ML SYR SUBCUT SCH ×2 (08:35→19:32)
[2019-05-17] MEDS: Fluticasone NASAL SPRAY 50MCG* 16 gm SPRAY BTL BOTH NARES SCH (08:41)
[2019-05-17] MEDS: Erythromycin OPTH OINT* APPLIC OINT RIGHT EYE SCH ×4 (08:41→20:31)
[2019-05-17] MEDS: NS 0.9% 1000 ML** 1,000 ML IV SCH (09:48)
[2019-05-17] MEDS ORDERED: Senna TAB 8.6 mg* TAB PO PRN (10:55)
--- NOTE | 2019-05-17 11:32 | PN ---
Progress Note - Progress Note Date of Service: 05/17/19 SOAP: Subjective: [The pt was seen lying in bed this morning. States that the hip is painful. She was concerned greatly with leg length at this time. She denies any chest pain, SOB, nausea or vomiting. ] Objective: [General: Pt is alert and oriented x3. NAD. MSK, RLE: inspection of the left hip reveals no erythema. She is able to df/pf the ankle. Sensation is intact to light touch distally. 2+ PT pulse.] Vital Signs Temp 99.5 F 05/17/19 08:05 Pulse 68 05/17/19 08:05 Resp 16 05/17/19 09:40 BP 114/64 05/17/19 08:05 Pulse Ox 96 05/17/19 08:05 Intake & Output 05/16/19 05/17/19 05/17/19 18:59 06:59 18:59 Intake Total 660 990 Output Total 950 1150 Balance -950 -490 990 Intake: IV Fluids 990 NS 990 Oral 660 Output: Cortes 950 1150 Assessment: [Failure of constrained liner and dislocation of right total hip arthroplasty. ] Plan: [ 1. The pt is scheduled to go to the OR on 05/18/2019 in the morning for an open reduction of the total hip, liner exchange, possible revision. 2. We will continue with pain medication currently 3. NPO after midnight tonight. 4. We discussed leg length and that once the hip is reduced it would be the same length as before the dislocation. ]
[2019-05-17 13:24] LABS: ABS Basophils 0.1 10^3/ul (0-0.2); ABS Eosinophils 0.1 10^3/ul (0-0.6); ABS Lymphocytes 1.3 10^3/ul (1.0-4.8); ABS Monocytes 0.9 10^3/ul (0-0.8); ABS Neutrophils 8.6 10^3/ul (1.5-7.7); Eosinophil % 1.3 %; Hematocrit 39 % (35-47); Hemoglobin 12.8 g/dL (12.0-16.0); Lymphocyte % 12.1 %; Mean Corpuscular HGB Conc 33 g/dL (31-36); Mean Corpuscular Hemoglobin 28 pg (27-31); Mean Corpuscular Volume 85 fL (80-97); Mean Platelet Volume 7.5 fL (7.4-10.4); Platelet Count 237 10^3/uL (150-450); Red Blood Count 4.56 10^6 /uL (3.70-4.87); Red Cell Distribution Width 15 % (10-15)
--- NOTE | 2019-05-17 14:47 | PN ---
Subjective Date of Service: 05/17/19 Interval History: Noted gross hematuria in her urine bag. Patient denied urinary symptoms. No other bleeding noticed. Objective Active Medications: Dextrose (Dextrose 50% Vial 50 Ml*) 25 ml IV PUSH .FOR FS < 60 - SS PRN PRN Reason: FS < 60 Enoxaparin Sodium (Lovenox(*)) 30 mg SUBCUT Q12H [facility] Last Admin: 05/17/19 08:35 Dose: 30 mg Erythromycin (Erythromycin Opth Oint*) 1 applic RIGHT EYE QID [facility] Last Admin: 05/17/19 12:21 Dose: Not Given Fluticasone Propionate (Flonase Nasal Alpha 50mcg*) 1 spray BOTH NARES DAILY [facility] Last Admin: 05/17/19 08:41 Dose: 1 spray Sodium Chloride (Ns 0.9% 1000 Ml) 1,000 mls @ 75 mls/hr IV PER RATE [facility] Last Admin: 05/17/19 09:48 Dose: 75 mls/hr Insulin Human Lispro (Humalog*) 0 units SUBCUT ACHS [facility]; Protocol Last Admin: 05/17/19 12:21 Dose: Not Given Magnesium Hydroxide (Milk Of Magnesia Liq*) 30 ml PO Q6H PRN PRN Reason: CONSTIPATION Morphine Sulfate (Morphine Inj (Syringe))*) 2 mg IV Q4H PRN PRN Reason: PAIN - SEVERE Last Admin: 05/17/19 08:42 Dose: 2 mg Senna (Senokot 8.6 Mg Tab*) 1 tab PO DAILY PRN PRN Reason: CONSTIPATION Vital Signs - 8 hr 05/17/19 05/17/19 05/17/19 07:10 08:05 08:42 Temperature 99.5 F Pulse Rate 68 Respiratory 16 18 16 Rate Blood Pressure 114/64 (mmHg) O2 Sat by Pulse 96 Oximetry 05/17/19 05/17/19 09:40 12:01 Temperature 98.8 F Pulse Rate 78 Respiratory 16 18 Rate Blood Pressure 136/60 (mmHg) O2 Sat by Pulse 97 Oximetry Oxygen Devices in Use Now: None Exam: GEN: pleasant, NAD HEART: S1S2, regular rate and rhythm, no murmur Lung: clear Abdomen: soft, non tender. Extremity: right hip in adduction, restricted movement, calves supple bilaterally. James catheter in situ. 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 - Patient Problems (1) Hip dislocation, right Current Visit: Yes Status: Acute Code(s): S73.004A - UNSPECIFIED DISLOCATION OF RIGHT HIP, INITIAL ENCOUNTER SNOMED Code(s): 903522842 Comment: - recurrent hip dislocation with history of right hip replacement and revision surgery - plan for op on Sat 8am - ortho following (2) Hematuria Current Visit: Yes Status: Acute Code(s): R31.9 - HEMATURIA, UNSPECIFIED SNOMED Code(s): 18167083 Comment: - likely due to traumatic james insertion - will check CBC and hematuria this afternoon - if persists, may need to decrease Lovenox dose (3) DVT prophylaxis Current Visit: Yes Status: Acute Code(s): Z29.9 - ENCOUNTER FOR PROPHYLACTIC MEASURES, UNSPECIFIED SNOMED Code(s): 726617235 Comment: - start Lovenox 30mg bid pre op as prophylaxis based on current recommendations - In patients undergoing major othropedic surgery, LMWH have been shown in randomized trials to be highly effective, and associated with low risk of major bleeding. Thus currently is the first line. Duration will be a miminium 10-14 days and extending to 35 days even. - stop Lovenox on Sat morning. Status and Disposition: Inpatient Medicine, awaiting operation. Attestation Documenting Resident: Wendy Blanchard Supervising Physician: Lisa Aquino Attestation: This service has been performed in part by a resident under the direction of a teaching physician.I, Lisa Aquino, performed the service, or was physically present during the critical, or alcantara portions of the service, furnished by the resident. I participated in the management of the patient.
[2019-05-17] MEDS: Magnesium Hydroxide LIQ* 30 ML UDC PO PRN (15:57)
[2019-05-18] MEDS: Magnesium Hydroxide LIQ* 30 ML UDC PO PRN (00:58)
[2019-05-18] MEDS: NS 0.9% 1000 ML** 1,000 ML IV SCH ×2 (01:09→14:30)
[2019-05-18] MEDS ORDERED: Dexamethasone IV* 4 MG/ML 1 ML (4 MG) IV SLOW PU ONE (07:21)
[2019-05-18] MEDS ORDERED: Famotidine IV* 10 MG/ML 2 ML (20 mg) IV ONE (07:21)
[2019-05-18] MEDS ORDERED: celeCOXIB CAP* 200 MG PO ONE (07:21)
[2019-05-18] MEDS ORDERED: Gabapentin CAP(*) 300 MG PO ONE (07:22)
[2019-05-18] MEDS: Insulin LISPRO* 1 UNITS UNIT SUBCUT SCH ×4 (07:29→21:07)
[2019-05-18] MEDS ORDERED: KETAMINE HCL* 50 MG/ML 10 ML VIAL ONE (07:34)
[2019-05-18] MEDS ORDERED: Lidocaine 2% PF * 5 ML VIAL ONE (07:43)
[2019-05-18] MEDS ORDERED: Propofol* 10 MG/ML 20 ML BTL ONE (07:43)
[2019-05-18] MEDS ORDERED: Ondansetron INJ* 2 MG/ML VIAL ONE (07:44)
[2019-05-18] MEDS ORDERED: Gabapentin CAP(*) 300 MG ONE (07:49)
[2019-05-18] MEDS ORDERED: Famotidine IV* 10 MG/ML 2 ML (20 mg) ONE (07:49)
[2019-05-18] MEDS ORDERED: celeCOXIB CAP* 200 MG ONE (07:49)
[2019-05-18] MEDS ORDERED: Dexamethasone IV* 4 MG/ML 1 ML (4 MG) ONE (07:49)
[2019-05-18] MEDS ORDERED: ceFAZolin 2 GM PREMIX in ORs 2 GM/50 ML BAG ONE (07:50)
[2019-05-18] MEDS ORDERED: Rocuronium* 10 MG/ML VIAL ONE (08:14)
[2019-05-18] MEDS: Fluticasone NASAL SPRAY 50MCG* 16 gm SPRAY BTL BOTH NARES SCH (08:43)
[2019-05-18] MEDS: Erythromycin OPTH OINT* APPLIC OINT RIGHT EYE SCH ×4 (08:43→21:12)
[2019-05-18] MEDS ORDERED: fentaNYL* 50 MCG/ML 2 ML VIAL (100 MCG VIAL) ONE (08:54)
[2019-05-18] MEDS ORDERED: Glycopyrrolate IV* 0.2 MG/ML 1 ML VIAL ONE (09:27)
[2019-05-18] MEDS ORDERED: Neostigmine Methylsulfate* 3 MG/3 ML SYRINGE ONE (09:27)
[2019-05-18] MEDS ORDERED: ROPIVACAINE 5 MG/ML 30 ML BTL (0.5%) ONE (09:58)
--- NOTE | 2019-05-18 10:45 | PN ---
Subjective Date of Service: 05/18/19 Interval History: I didn't have a chance to meet patient this morning as she went to OR. I saw her last evening around 6pm, her hematuria resolved. Objective Active Medications: Dextrose (Dextrose 50% Vial 50 Ml*) 25 ml IV PUSH .FOR FS < 60 - SS PRN PRN Reason: FS < 60 Erythromycin (Erythromycin Opth Oint*) 1 applic RIGHT EYE QID [facility] Last Admin: 05/18/19 08:43 Dose: Not Given Fluticasone Propionate (Flonase Nasal [place] 50mcg*) 1 spray BOTH NARES DAILY [facility] Last Admin: 05/18/19 08:43 Dose: Not Given Sodium Chloride (Ns 0.9% 1000 Ml) 1,000 mls @ 75 mls/hr IV PER RATE [facility] Last Admin: 05/18/19 01:09 Dose: 75 mls/hr Insulin Human Lispro (Humalog*) 0 units SUBCUT ACHS [facility]; Protocol Last Admin: 05/18/19 07:29 Dose: Not Given Magnesium Hydroxide (Milk Of Magnjohnnie Liq*) 30 ml PO Q6H PRN PRN Reason: CONSTIPATION Last Admin: 05/18/19 00:58 Dose: 30 ml Morphine Sulfate (Morphine Inj (Syringe))*) 2 mg IV Q4H PRN PRN Reason: PAIN - SEVERE Last Admin: 05/17/19 22:12 Dose: 2 mg Senna (Senokot 8.6 Mg Tab*) 1 tab PO DAILY PRN PRN Reason: CONSTIPATION Last Admin: 05/17/19 15:57 Dose: 1 tab Vital Signs - 8 hr 05/18/19 05/18/19 05/18/19 03:15 07:37 07:58 Temperature 99.2 F 98.2 F Pulse Rate 83 76 Respiratory 17 14 14 Rate Blood Pressure 122/64 124/63 (mmHg) O2 Sat by Pulse 97 97 Oximetry 05/18/19 08:13 Temperature Pulse Rate Respiratory 16 Rate Blood Pressure (mmHg) O2 Sat by Pulse Oximetry Oxygen Devices in Use Now: None Exam: GEN: pleasant, NAD HEART: S1S2, regular rate and rhythm, no murmur Lung: clear Abdomen: soft, non tender. Extremity: James catheter in situ. 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 - Patient Problems (1) Hip dislocation, right Current Visit: Yes Status: Acute Code(s): S73.004A - UNSPECIFIED DISLOCATION OF RIGHT HIP, INITIAL ENCOUNTER SNOMED Code(s): 893436980 Comment: - recurrent hip dislocation with history of right hip replacement and revision surgery - Revision right total hip arthroplasty with contrained liner placement and femoral head exchange done on 05/18 - recommend ortho recs (2) Hematuria Current Visit: Yes Status: Acute Code(s): R31.9 - HEMATURIA, UNSPECIFIED SNOMED Code(s): 04312784 Comment: - likely due to traumatic james insertion - Hb stable, hematuria resolved - James was removed post op (3) DVT prophylaxis Current Visit: Yes Status: Acute Code(s): Z29.9 - ENCOUNTER FOR PROPHYLACTIC MEASURES, UNSPECIFIED SNOMED Code(s): 270400457 Comment: - start Lovenox 30mg bid pre op and post op as prophylaxis based on current recommendations - In patients undergoing major othropedic surgery, LMWH have been shown in randomized trials to be highly effective, and associated with low risk of major bleeding. Thus currently is the first line. Duration will be a miminium 10-14 days and extending to 35 days even. - no obvious bleeding of concern - US dvt neg despite swollen right leg - will continue sc Lovenox to complete 14 days in total Status and Disposition: Inpatient Medicine, start PT after operation Attestation Documenting Resident: Wendy Blanchard Supervising Physician: Lisa Aquino Attestation: This service has been performed in part by a resident under the direction of a teaching physician.I, Lisa Aquino, performed the service, or was physically present during the critical, or alcantara portions of the service, furnished by the resident. I participated in the management of the patient.
[2019-05-18] MEDS ORDERED: Insulin LISPRO* 1 UNITS UNIT SUBCUT ONE (10:54)
[2019-05-18] MEDS ORDERED: fentaNYL* 50 MCG/ML 2 ML VIAL (100 MCG VIAL) IV PRN (11:19)
[2019-05-18] MEDS ORDERED: Naloxone* 0.4 MG/ML 1 ML VIAL IV PRN (11:19)
[2019-05-18] MEDS ORDERED: DiMENhydriNATE IV* 50 MG/ML VIAL IV PUSH PRN (11:19)
[2019-05-18 13:30] LABS: Urine Appearance Turbid; Urine Bacteria 1+ (Absent); Urine Bilirubin Negative (Negative); Urine Blood 3+ (Negative); Urine Color Amber; Urine Glucose 2+(150 mg/dL) (Negative); Urine Ketones Trace (Negative); Urine Nitrite Positive (Negative); Urine Protein 2+(100 mg/dL) (Negative); Urine Red Blood Cell 3+(>10/hpf) (Absent); Urine Specific Gravity 1.029 (1.010-1.030); Urine Urobilinogen Negative (Negative); Urine White Blood Cell 3+(>20/hpf) (Absent)
[2019-05-18] MEDS ORDERED: oxyCODONE/Acetamin 5/325 MG* TAB PO PRN ×2 (14:38)
[2019-05-18 14:47] LABS: ABS Basophils 0.1 10^3/ul (0-0.2); ABS Monocytes 0.5 10^3/ul (0-0.8); Hematocrit 34 % (35-47); Hemoglobin 11.6 g/dL (12.0-16.0); Lymphocyte % 6.2 %; Mean Corpuscular HGB Conc 34 g/dL (31-36); Mean Corpuscular Hemoglobin 28 pg (27-31); Mean Corpuscular Volume 84 fL (80-97); Mean Platelet Volume 7.5 fL (7.4-10.4); Platelet Count 225 10^3/uL (150-450); Red Blood Count 4.08 10^6 /uL (3.70-4.87); Red Cell Distribution Width 15 % (10-15); White Blood Count 15.5 10^3/uL (3.5-10.8)
[2019-05-18] MEDS ORDERED: Zosyn per Pharmacy* NOTE FOLLOW UP SCH (15:00)
[2019-05-18] MEDS ORDERED: Lactated Ringers 1000 ML Bag* 1,000 ML IV SCH (15:00)
[2019-05-18 15:03] LABS: BUN/Creatinine Ratio 36.4 (8-20); Calcium 7.5 mg/dL (8.6-10.3); EGFR African American 166.5 (>60); EGFR Non-African American 137.6 (>60); Potassium 4.2 mmol/L (3.5-5.0)
[2019-05-18 15:05] LABS: Troponin I 0.01 ng/mL (<0.04)
--- NOTE | 2019-05-18 15:07 | OP ---
OPERATIVE REPORT: DATE OF OPERATION: 05/18/19 DATE OF : 36 SURGEON: Leah Garcia MD INSPECTOR AIDE: VELMA Doshi Ms. Ibarra did help throughout the procedure with preparation of the leg, wound retraction, manipulation of the hip, and wound closure. ANESTHESIOLOGIST: Dr. Urbina. ANESTHESIA: General. PRE-OP DIAGNOSIS: Right total hip arthroplasty dislocation with failure of constrained liner, recurrent instability. POST-OP DIAGNOSIS: Right total hip arthroplasty dislocation with failure of constrained liner, recurrent instability. OPERATIVE PROCEDURE: Revision right total hip arthroplasty with constrained liner placement and femoral head exchange. HARDWARE USED: This is Lucy total hip hardware for the liner a Trident 0 degree constrained acetabular insert size E. For the head, he had alpha V40 22.2 plus 3 metal head. COMPLICATIONS: None. ESTIMATED BLOOD LOSS: 200 cc. SPECIMEN: None. BRIEF HISTORY/INDICATION: Ms. Bermudez is an 78-year-old female, who first had her right total hip arthroplasty with Dr. Topete in 2009. She developed recurrent instability and sought my opinion in 2013. After being given different options, she wished to have a constrained liner placed and this was performed. For the next 5-1/2 years, the patient did well. On 05/16/19, she reports that she was on the commode when she felt something give. She was brought to [facility] and had dislocation of the right total hip arthroplasty with failure of the constrained liner. The patient, her family and I discussed different options. We discussed placement of another constrained liner with possible failure. We discussed revision of the acetabular component with or without femoral component revised. The patient and her family wished to proceed with the most minimal surgery possible. We therefore decided on replacing the constrained liner if at all possible. Informed consent was obtained from the patient. She understood the risks of surgery included, but were not limited to, bleeding, infection, damage to nearby structures, continued pain, need for further surgery, intraoperative fracture, nerve palsy, hardware failure or loosening, recurrent dislocation, failure of hardware, stroke, heart attack, blood clot, and . She wished to proceed. INTRAOPERATIVE FINDINGS: Intraoperatively, the patient was noted to have dislocation with failure of the constrained liner. 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 The acetabular component did have some retroversion, but that component was stable. The femoral stem had no obvious loosening. DESCRIPTION OF PROCEDURE: Ms. Bermudez was identified in the preanesthesia unit. Her right lower extremity was marked as the correct operative side. Informed consent was signed by her healthcare proxy, her son Reza. Informed consent was signed and placed in the chart. The patient was taken to the operating room and placed under anesthesia. The patient was placed in the left lateral decubitus position on the pegboard. All bony prominences were well padded. Right lower extremity was prepped and draped in the usual sterile fashion. Preop time-out was made to correctly identify the patient, side and site. Appropriate perioperative antibiotics were given within 1 hour of incision. The patient's prior incision was incised using a 10 blade. Electrocautery was used to dissect down to the lateral fascia. New 10 blade was used to make an incision along the skin incision in the lateral fascia. The implant was immediately visualized. Electrocautery was used to make a posterolateral capsular flap along the posterolateral femur. Bone tamp was used to carefully remove the head. This had the constrained liner attached. There was some polyethylene wear metallosis. This was minimal. There was no obvious evidence of purulence. The hip was copiously irrigated with 3 L of sterile saline. After appropriate placement of retractor and anterior retraction of the femur, the acetabulum was well visualized. Acetabular component had no obvious loosening. This was retroverted. Any scar tissue or fibrous tissue was carefully excised from around the acetabular rim. A new 0 degree size E constrained Trident liner was impacted into the acetabulum without difficulty. Stability of the liner was checked and rechecked and noted to be stable. Next, attention was turned to the proximal femur. The stem was checked and there was no obvious loosening of the femoral stem. A 22.2 plus 3 alpha V40 metal head was impacted onto the femoral stem without difficulty. The head was then carefully reduced into the constrained liner. The hip was taken through range of motion. It was noted that the hip did have limited range of motion. The liner was intact. The hip was copiously irrigated with another 3 L of sterile saline. Previously packed capsule was reapproximated to the posterolateral femur through 2 trochanteric drill holes using #5 Ethibond. The lateral capsule was reapproximated using #5 Ethibond and interrupted #1 Vicryls. The rest of the incision was closed in a layered fashion using 0 and 2-0 Vicryls. The skin was closed using running 3- 0 nylon suture. Sterile Xeroform, 4x4s, and paper tape were used to cover the incision. The patient's anesthesia was reversed without difficulty. She was taken to the PACU in stable condition. Intended weightbearing will be weightbearing as tolerated with strict posterior hip precautions. Intended DVT prophylaxis will be Lovenox or Eliquis. I did discuss the case with the patient's 2 sons and [id number]. They understand she will have limited range of motion. This is essentially a salvage procedure using constrained liner with limited goals postoperatively. Our goal is to prevent dislocation and enable ambulation. If this failed, she would need a revision possibly both components and with her age and bone quality , I fear this would not have a good outcome. The patient's family understands and they will help encourage limited range of motion with strict posterior hip precautions. [id number]/[facility] #: [id number] VANESA
[2019-05-18] MEDS ORDERED: Piperacillin/Tazobac ADVAN(*) 3.375 GM in NS 0.9% 100 ML* 100 ML IVPB ONE (15:30)
[2019-05-18] MEDS ORDERED: ceFAZolin 1 GM ADVAN(*) 1 GM in NS 0.9% 50 ML* 50 ML IVPB SCH (17:00)
[2019-05-18] MEDS: Enoxaparin(*) 30 MG/0.3 ML SYR SUBCUT SCH (20:15)
[2019-05-18] MEDS: ZOSYN 3.375 GM Q8H per EXTENDED INFUSION IVPB SCH ×2 (20:17)
[2019-05-19] MEDS: ZOSYN 3.375 GM Q8H per EXTENDED INFUSION IVPB SCH ×6 (04:08→20:26)
[2019-05-19] MEDS: NS 0.9% 1000 ML** 1,000 ML IV SCH ×2 (04:08→23:44)
[2019-05-19 05:16] LABS: ABS Basophils 0.1 10^3/ul (0-0.2); ABS Eosinophils 0.1 10^3/ul (0-0.6); ABS Lymphocytes 1.4 10^3/ul (1.0-4.8); ABS Monocytes 1.1 10^3/ul (0-0.8); ABS Neutrophils 11.1 10^3/ul (1.5-7.7); Eosinophil % 0.4 %; Hematocrit 32 % (35-47); Hemoglobin 10.4 g/dL (12.0-16.0); Mean Corpuscular HGB Conc 33 g/dL (31-36); Mean Corpuscular Hemoglobin 28 pg (27-31); Mean Corpuscular Volume 84 fL (80-97); Mean Platelet Volume 7.5 fL (7.4-10.4); Platelet Count 228 10^3/uL (150-450); Red Blood Count 3.74 10^6 /uL (3.70-4.87); Red Cell Distribution Width 14 % (10-15); White Blood Count 13.7 10^3/uL (3.5-10.8)
[2019-05-19 05:36] LABS: BUN/Creatinine Ratio 30.6 (8-20); Calcium 7.6 mg/dL (8.6-10.3); EGFR Non-African American 121.5 (>60); Potassium 3.9 mmol/L (3.5-5.0)
[2019-05-19] MEDS ORDERED: oxyCODONE TAB* 5 MG TAB PO PRN (07:24)
[2019-05-19 08:02] LABS: Albumin/Globulin Ratio 1.7 (1-3); Globulin 1.8 g/dL (2-4); Indirect Bilirubin 0.4 mg/dL (0.3-1.0); Total Bilirubin 0.5 mg/dL (0.2-1.0); Total Protein 4.8 g/dL (6.4-8.9)
--- NOTE | 2019-05-19 08:39 | PN ---
Progress Note - Progress Note Date of Service: 05/19/19 SOAP: Subjective: [Pt reports stiffness in her R hip/leg but no significant c/o pain. Denies CP, SOB, dizziness. Has been from bed to chair.] Objective: [A and O x3, NAD Seated in chair using IS R hip dressing c/d/i. Calves soft, NT. Distal gross motor and NV function intact. Found to have a UTI postop - placed on zosyn by hospitalist. Vital Signs: Temp Pulse Resp BP Pulse Ox 99.9 F 79 16 114/53 98 05/19/19 07:44 05/19/19 07:44 05/19/19 07:44 05/19/19 08:06 05/19/19 07:44 Laboratory Results - last 24 hr 05/18/19 05/18/19 05/18/19 10:47 11:30 14:38 WBC 15.5 H RBC 4.08 Hgb 11.6 L Hct 34 L MCV 84 MCH 28 MCHC 34 RDW 15 Plt Count 225 MPV 7.5 Neut % (Auto) 90.3 Lymph % (Auto) 6.2 [place] % (Auto) 3.1 Eos % (Auto) 0.0 Baso % (Auto) 0.4 Absolute Neuts (auto) 14.0 H Absolute Lymphs (auto) 1.0 Absolute Monos (auto) 0.5 Absolute Eos (auto) 0.0 Absolute Basos (auto) 0.1 Absolute Nucleated RBC 0.0 Nucleated RBC % 0.0 Sodium Potassium Chloride Carbon Dioxide Anion Gap BUN Creatinine Est GFR ( Amer) Est GFR (Non-Af Amer) BUN/Creatinine Ratio Glucose POC Glucose (mg/dL) 236 H Lactic Acid Calcium Total Bilirubin Direct Bilirubin Indirect Bilirubin AST ALT Alkaline Phosphatase Troponin I Total Protein Albumin Globulin Albumin/Globulin Ratio Urine Color Rae Urine Appearance Turbid Urine pH 6.0 Ur Specific [place] 1.029 Urine Protein 2+(100 mg/dl) A Urine Ketones Trace A Urine Blood 3+ A Urine Nitrate Positive A Urine Bilirubin Negative Urine Urobilinogen Negative Ur Leukocyte Esterase 3+ A Urine WBC (Auto) 3+(>20/hpf) A Urine RBC (Auto) 3+(>10/hpf) A Urine Bacteria 1+ A Urine Glucose 2+(150 mg/dl) A Urine Ascorbic Acid * A 1005/18/19 05/18/19 14:38 14:38 16:40 WBC RBC Hgb Hct MCV MCH MCHC RDW Plt Count MPV Neut % (Auto) Lymph % (Auto) [place] % (Auto) Eos % (Auto) Baso % (Auto) Absolute Neuts (auto) Absolute Lymphs (auto) Absolute Monos (auto) Absolute Eos (auto) Absolute Basos (auto) Absolute Nucleated RBC Nucleated RBC % Sodium 131 L Potassium 4.2 Chloride 103 Carbon Dioxide 23 Anion Gap 5 BUN 16 Creatinine 0.44 L Est GFR ( Amer) 166.5 Est GFR (Non-Af Amer) 137.6 BUN/Creatinine Ratio 36.4 H Glucose 210 H POC Glucose (mg/dL) 228 H Lactic Acid 1.4 Calcium 7.5 L Total Bilirubin Direct Bilirubin Indirect Bilirubin AST ALT Alkaline Phosphatase Troponin I 0.01 Total Protein Albumin Globulin Albumin/Globulin Ratio Urine Color Urine Appearance Urine pH Ur Specific [place] Urine Protein Urine Ketones Urine Blood Urine Nitrate Urine Bilirubin Urine Urobilinogen Ur Leukocyte Esterase Urine WBC (Auto) Urine RBC (Auto) Urine Bacteria Urine Glucose Urine Ascorbic Acid 05/18/19 05/19/19 05/19/19 20:57 05:06 05:06 WBC 13.7 H RBC 3.74 Hgb 10.4 L Hct 32 L MCV 84 MCH 28 MCHC 33 RDW 14 Plt Count 228 MPV 7.5 Neut % (Auto) 81.0 Lymph % (Auto) 10.0 [place] % (Auto) 7.9 Eos % (Auto) 0.4 Baso % (Auto) 0.7 Absolute Neuts (auto) 11.1 H Absolute Lymphs (auto) 1.4 Absolute Monos (auto) 1.1 H Absolute Eos (auto) 0.1 Absolute Basos (auto) 0.1 Absolute Nucleated RBC 0.0 Nucleated RBC % 0.0 Sodium 135 Potassium 3.9 Chloride 106 Carbon Dioxide 26 Anion Gap 3 BUN 15 Creatinine 0.49 L Est GFR ( Amer) 147.0 Est GFR (Non-Af Amer) 121.5 BUN/Creatinine Ratio 30.6 H Glucose 169 H POC Glucose (mg/dL) 327 H Lactic Acid Calcium 7.6 L Total Bilirubin 0.50 Direct Bilirubin 0.10 Indirect Bilirubin 0.4 AST 15 ALT 10 Alkaline Phosphatase 33 L Troponin I Total Protein 4.8 L Albumin 3.0 L Globulin 1.8 L Albumin/Globulin Ratio 1.7 Urine Color Urine Appearance Urine pH Ur Specific [place] Urine Protein Urine Ketones Urine Blood Urine Nitrate Urine Bilirubin Urine Urobilinogen Ur Leukocyte Esterase Urine WBC (Auto) Urine RBC (Auto) Urine Bacteria Urine Glucose Urine Ascorbic Acid 05/19/19 08:09 WBC RBC Hgb Hct MCV MCH MCHC RDW Plt Count MPV Neut % (Auto) Lymph % (Auto) [place] % (Auto) Eos % (Auto) Baso % (Auto) Absolute Neuts (auto) Absolute Lymphs (auto) Absolute Monos (auto) Absolute Eos (auto) Absolute Basos (auto) Absolute Nucleated RBC Nucleated RBC % Sodium Potassium Chloride Carbon Dioxide Anion Gap BUN Creatinine Est GFR ( Amer) Est GFR (Non-Af Amer) BUN/Creatinine Ratio Glucose POC Glucose (mg/dL) 164 H Lactic Acid Calcium Total Bilirubin Direct Bilirubin Indirect Bilirubin AST ALT Alkaline Phosphatase Troponin I Total Protein Albumin Globulin Albumin/Globulin Ratio Urine Color Urine Appearance Urine pH Ur Specific [place] Urine Protein Urine Ketones Urine Blood Urine Nitrate Urine Bilirubin Urine Urobilinogen Ur Leukocyte Esterase Urine WBC (Auto) Urine RBC (Auto) Urine Bacteria Urine Glucose Urine Ascorbic Acid ] Assessment: [s/pR GUTIERREZ with constrained liner placement and femoral head exchange POD #1 UTI] Plan: [PT/OT - WBAT R LE NO extreme ROM, NO hip flexion past 80 degrees Pain management Con't abx per medicine. Lovenox for DVT prophyl]
[2019-05-19] MEDS: Acetaminophen TAB* 325 MG PO PRN ×2 (08:42→17:04)
[2019-05-19] MEDS: Enoxaparin(*) 30 MG/0.3 ML SYR SUBCUT SCH ×2 (08:42→20:29)
[2019-05-19] MEDS ORDERED: Glycerin ADULT SUPP PR PRN (08:42)
[2019-05-19] MEDS: Erythromycin OPTH OINT* APPLIC OINT RIGHT EYE SCH ×4 (08:42→20:54)
[2019-05-19] MEDS: Fluticasone NASAL SPRAY 50MCG* 16 gm SPRAY BTL BOTH NARES SCH (08:42)
[2019-05-19] MEDS: Insulin LISPRO* 1 UNITS UNIT SUBCUT SCH (08:42)
[2019-05-19] MEDS ORDERED: Senna TAB 8.6 mg* TAB PO ONE (08:42)
--- NOTE | 2019-05-19 08:49 | PN ---
Subjective Date of Service: 05/19/19 Interval History: Patient with AMS, hypotension, and leukocytosis after procedure yesterday. Likely from operation/anaesthesia but also UA concerning for UTI. Given IVF and Zosyn with significant improvement by all parameters. Today, pt will work with PT with posterior hip precautions. She is out of bed to chair and should ambulate as well. DC Cortes and tele. Give prn bowel regimen. Advance diet to carb control. Pending urine cultures. Pt denies pain. She doesn't have much of an appetite but denies nausea or vomiting. No bowel movement in a couple days. Denies dysuria but does have Cortes in currently - feels like she has to urinate. Objective Active Medications: Acetaminophen (Tylenol Tab*) 975 mg PO Q8H PRN PRN Reason: PAIN - MILD Last Admin: 05/19/19 08:42 Dose: 975 mg Citalopram Hydrobromide (Celexa Tab*) 20 mg PO DAILY [facility] Enoxaparin Sodium (Lovenox(*)) 30 mg SUBCUT Q12H [facility] Last Admin: 05/19/19 08:42 Dose: 30 mg Erythromycin (Erythromycin Opth Oint*) 1 applic RIGHT EYE QID [facility] Last Admin: 05/19/19 08:42 Dose: 1 applic Fluticasone Propionate (Flonase Nasal [place] 50mcg*) 1 spray BOTH NARES DAILY [facility] Last Admin: 05/19/19 08:42 Dose: 1 spray Glycerin (Glycerin Adult Supp*) 1 supp [place] DAILY PRN PRN Reason: CONSTIPATION Piperacillin Sod/Tazobactam (Sod 3.375 gm/ Sodium Chloride) 100 mls @ 25 mls/ hr IVPB Q8H [facility] Last Admin: 05/19/19 04:08 Dose: 25 mls/hr Magnesium Hydroxide (Milk Of Magnesia Liq*) 30 ml PO Q6H PRN PRN Reason: CONSTIPATION Last Admin: 05/18/19 00:58 Dose: 30 ml Metformin HCl (Glucophage*) 1,000 mg PO BID WITH MEALS [facility] Non-Formulary Medication (Calcium Carbonate/Vitamin D3 [Calcium 500 + Vit D Caplet]) 1 each PO DAILY [facility] Oxycodone HCl (Roxycodone Tab*) 5 mg PO Q6H PRN PRN Reason: Pain - Mod to Severe Pharmacy Consult (Zosyn Per Pharmacy*) 1 note FOLLOW UP .ZOSYN PER [facility]ARM[facility]Y [facility] Senna (Senokot 8.6 Mg Tab*) 1 tab PO DAILY PRN PRN Reason: CONSTIPATION Last Admin: 05/17/19 15:57 Dose: 1 tab Vital Signs - 8 hr 05/19/19 05/19/19 05/19/19 01:17 04:20 06:00 Temperature 99 F 99 F Pulse Rate 82 89 Respiratory 20 16 Rate Blood Pressure 100/43 149/81 (mmHg) O2 Sat by Pulse 96 98 96 Oximetry 05/19/19 05/19/19 05/19/19 07:44 08:02 08:06 Temperature 99.9 F Pulse Rate 79 Respiratory 16 Rate Blood Pressure 160/44 110/62 114/53 (mmHg) O2 Sat by Pulse 98 Oximetry Oxygen Devices in Use Now: None Appearance: well appearing woman, sitting in chair in NAD, alert and interactive Eyes: No Scleral Icterus, - - keeps R eye lid closed Ears/Nose/Mouth/Throat: Clear Oropharnyx, Mucous Membranes Moist Neck: NL Appearance and Movements; NL JVP, Trachea Midline Respiratory: Symmetrical Chest Expansion and Respiratory Effort, Clear to Auscultation Cardiovascular: NL Sounds; No Murmurs; No JVD, RRR Abdominal: NL Sounds; No Tenderness; No Distention - no suprapubic tenderness, No Hepatosplenomegaly Extremities: No Edema Skin: No Rash or Ulcers Neurological: Alert and Oriented x 3 Result Diagrams: 05/19/19 05:06 05/19/19 05:06 Microbiology and Other Data: Microbiology 05/16/19 04:50 Nasal Screen MRSA (PCR) - Final Nasal Mrsa Not Detected Assess/Plan/Problems-Billing Assessment: 78W with DM2, RA on CellCept, anxiety/depression, h/o DVT/PE, 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 Course complicated by likely UTI and sepsis. - Patient Problems (1) Hip dislocation, right Comment: Recurrent hip dislocation with history of right hip replacement and revision surgery. Presented again with dislocation, s/p OR with Dr. Garcia on . - PT, weight bearing with posterior hip precautions - appeciate ortho recs (2) UTI (urinary tract infection) Comment: Hospital course with fever, leukocytosis, hypotension. Pt is immunosuppressed. UA concerning for infection. - Zosyn (05/18 - ) - f/u UCx to narrow abx and switch to oral (3) Diabetes mellitus Comment: - DC insulin sliding scale with fingersticks and restart home metformin (4) Rheumatoid arthritis Comment: - holding home CellCept in acute setting (5) Depression with anxiety Comment: - restart home citalopram (6) DVT prophylaxis Comment: - start Lovenox 30mg bid pre op as prophylaxis based on current recommendations - In patients undergoing major othropedic surgery, LMWH have been shown in randomized trials to be highly effective, and associated with low risk of major bleeding. Thus currently is the first line. Duration will be a miminium 10-14 days and extending to 35 days even. - will resume post op if no significant bleeding. Status and Disposition: Inpatient Medicine, start PT after operation
[2019-05-19] MEDS: Calcium/Vitamin D TAB 250/125* TAB PO SCH (09:09)
[2019-05-19] MEDS: Citalopram TAB* 20 MG PO SCH (09:09)
[2019-05-19] MEDS: metFORMIN* 1,000 MG TAB PO SCH ×2 (09:09→17:05)
[2019-05-19] MEDS: Magnesium Hydroxide LIQ* 30 ML UDC PO PRN (17:04)
[2019-05-19] MEDS ORDERED: NS 0.9% IV ONE (20:49)
--- NOTE | 2019-05-19 20:53 | PN ---
Hospitalist Progress Note Date of Service: 05/19/19 HOSPITALIST ADDENDUM Called by RN because patient meets severe sepsis criteria with leukocytosis, HR 93, and MAP 64. She has known sepsis with Proteus UTI as a source, already on Zosyn. Will check CBC, CMP, lactic acid and give fluid bolus. Continue to monitor.
[2019-05-19 21:14] LABS: ABS Basophils 0.1 10^3/ul (0-0.2); ABS Eosinophils 0.2 10^3/ul (0-0.6); ABS Lymphocytes 1.1 10^3/ul (1.0-4.8); ABS Monocytes 0.8 10^3/ul (0-0.8); ABS Neutrophils 8.5 10^3/ul (1.5-7.7); Eosinophil % 1.6 %; Hematocrit 33 % (35-47); Hemoglobin 10.9 g/dL (12.0-16.0); Lymphocyte % 10.1 %; Mean Corpuscular HGB Conc 33 g/dL (31-36); Mean Corpuscular Hemoglobin 28 pg (27-31); Mean Corpuscular Volume 84 fL (80-97); Mean Platelet Volume 7.5 fL (7.4-10.4); Platelet Count 261 10^3/uL (150-450); Red Blood Count 3.92 10^6 /uL (3.70-4.87); Red Cell Distribution Width 14 % (10-15); White Blood Count 10.6 10^3/uL (3.5-10.8)
[2019-05-19 21:30] LABS: Albumin 3.2 g/dL (3.2-5.2); Albumin/Globulin Ratio 1.5 (1-3); BUN/Creatinine Ratio 33.8 (8-20); Calcium 7.9 mg/dL (8.6-10.3); EGFR African American 100.7 (>60); EGFR Non-African American 83.3 (>60); Globulin 2.1 g/dL (2-4); Potassium 3.8 mmol/L (3.5-5.0); Total Bilirubin 0.3 mg/dL (0.2-1.0); Total Protein 5.3 g/dL (6.4-8.9)
--- NOTE | 2019-05-20 00:28 | PN ---
Sepsis Event Evaluation Date of Evaluation: 05/20/19 Time of Evaluation: 00:28 Current Stage of Sepsis: Severe Sepsis Vital Signs - Last 12 Hours: Vital Signs - 12 hr Temp Pulse Resp BP Pulse Ox 05/19/19 23:35 98.1 F 95 20 129/66 98 05/19/19 20:22 98.1 F 93 18 102/45 97 05/19/19 18:53 16 05/19/19 16:00 98 05/19/19 15:30 99.1 F 88 17 106/45 98 Lactic Acid: 05/18/19 05/19/19 05/19/19 14:38 21:08 21:56 Lactic Acid 1.4 2.3 H* 2.2 H* - Cardiopulmonary Exam Capillary Refill: Immediate Respiratory: Symmetrical Chest Expansion and Respiratory Effort, Clear to Auscultation Cardiovascular: NL Sounds; No Murmurs; No JVD, RRR - Peripheral Pulse Exam Radial Pulses: Bilateral Normal - Skin Exam Skin Exam: Normal Turgor - [place] Coma Scale Best Eye Response: 4 - Spontaneous Best Motor Response: 6 - Obeys Commands Best Verbal Response: 5 - Oriented Coma Scale Total: 15 Assess/Plan/Problems-Billing Assessment: 78W with DM2, RA on CellCept, anxiety/depression, h/o DVT/PE, 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 Course complicated by likely UTI and sepsis. Had HR 93 and MAP 64 earlier today, with LA elevation. May be secondary to Metformin (so will d/c it), but also could represent severe sepsis in the setting of UTI. Responded well to IVF; will trend LA until <2.0 Status and Disposition: Inpatient Medicine, start PT after operation
[2019-05-20] MEDS: NS 0.9% 1000 ML** 1,000 ML IV SCH ×2 (01:02→12:24)
[2019-05-20] MEDS: ZOSYN 3.375 GM Q8H per EXTENDED INFUSION IVPB SCH ×4 (05:32→12:24)
[2019-05-20 05:35] LABS: Hematocrit 33 % (35-47); Hemoglobin 10.8 g/dL (12.0-16.0); Mean Corpuscular HGB Conc 33 g/dL (31-36); Mean Corpuscular Hemoglobin 28 pg (27-31); Mean Corpuscular Volume 85 fL (80-97); Mean Platelet Volume 7.3 fL (7.4-10.4); Platelet Count 279 10^3/uL (150-450); Red Blood Count 3.83 10^6 /uL (3.70-4.87); Red Cell Distribution Width 15 % (10-15); White Blood Count 10.3 10^3/uL (3.5-10.8)
[2019-05-20 05:53] LABS: BUN/Creatinine Ratio 31.4 (8-20); Calcium 7.4 mg/dL (8.6-10.3); EGFR African American 140.4 (>60); Magnesium 1.9 mg/dL (1.9-2.7); Potassium 3.4 mmol/L (3.5-5.0)
[2019-05-20] MEDS ORDERED: Potassium Chlor TAB* 20 MEQ TAB.ER PO SCH (09:00)
[2019-05-20] MEDS: Fluticasone NASAL SPRAY 50MCG* 16 gm SPRAY BTL BOTH NARES SCH (09:14)
[2019-05-20] MEDS: Calcium/Vitamin D TAB 250/125* TAB PO SCH (09:16)
[2019-05-20] MEDS: Citalopram TAB* 20 MG PO SCH (09:16)
[2019-05-20] MEDS: Erythromycin OPTH OINT* APPLIC OINT RIGHT EYE SCH ×4 (09:18→23:20)
[2019-05-20] MEDS: Enoxaparin(*) 30 MG/0.3 ML SYR SUBCUT SCH ×2 (09:19→19:38)
--- NOTE | 2019-05-20 09:43 | PN ---
Progress Note - Progress Note Date of Service: 05/20/19 SOAP: Subjective: Pt is doing well. Pain is controlled. Denies F/C, CP SOB. States she has some calf pain at night. Tachycardia and sepsis protocol overnight. Stable this am. Objective: PE- 78 y/o WDWN F NAD RLE- dressing changed, incision c/d/i with no signs of infection, calf soft mildy tender, +DF/PF ankle, +2 Dp pulse SILT distally Vital Signs Temp Pulse Resp BP Pulse Ox 99.2 F 91 20 119/59 96 05/20/19 07:29 05/20/19 07:29 05/20/19 07:29 05/20/19 07:29 05/20/19 07:29 Laboratory Results - last 24 hr 05/19/19 05/19/19 05/19/19 21:07 21:08 21:08 WBC 10.6 RBC 3.92 Hgb 10.9 L Hct 33 L MCV 84 MCH 28 MCHC 33 RDW 14 Plt Count 261 MPV 7.5 Neut % (Auto) 79.9 Lymph % (Auto) 10.1 [place] % (Auto) 7.6 Eos % (Auto) 1.6 Baso % (Auto) 0.8 Absolute Neuts (auto) 8.5 H Absolute Lymphs (auto) 1.1 Absolute Monos (auto) 0.8 Absolute Eos (auto) 0.2 Absolute Basos (auto) 0.1 Absolute Nucleated RBC 0.0 Nucleated RBC % 0.0 Sodium 137 Potassium 3.8 Chloride 104 Carbon Dioxide 26 Anion Gap 7 BUN 23 Creatinine 0.68 Est GFR ( Amer) 100.7 Est GFR (Non-Af Amer) 83.3 BUN/Creatinine Ratio 33.8 H Glucose 219 H Lactic Acid 2.3 H* Calcium 7.9 L Magnesium Total Bilirubin 0.30 AST 17 ALT 11 Alkaline Phosphatase 39 Total Protein 5.3 L Albumin 3.2 Globulin 2.1 Albumin/Globulin Ratio 1.5 05/19/19 05/20/19 05/20/19 21:56 02:02 05:27 WBC 10.3 RBC 3.83 Hgb 10.8 L Hct 33 L MCV 85 MCH 28 MCHC 33 RDW 15 Plt Count 279 MPV 7.3 L Neut % (Auto) Lymph % (Auto) [place] % (Auto) Eos % (Auto) Baso % (Auto) Absolute Neuts (auto) Absolute Lymphs (auto) Absolute Monos (auto) Absolute Eos (auto) Absolute Basos (auto) Absolute Nucleated RBC Nucleated RBC % Sodium Potassium Chloride Carbon Dioxide Anion Gap BUN Creatinine Est GFR ( Amer) Est GFR (Non-Af Amer) BUN/Creatinine Ratio Glucose Lactic Acid 2.2 H* 1.4 Calcium Magnesium Total Bilirubin AST ALT Alkaline Phosphatase Total Protein Albumin Globulin Albumin/Globulin Ratio 05/20/19 05/20/19 05:27 05:27 WBC RBC Hgb Hct MCV MCH MCHC RDW Plt Count MPV Neut % (Auto) Lymph % (Auto) [place] % (Auto) Eos % (Auto) Baso % (Auto) Absolute Neuts (auto) Absolute Lymphs (auto) Absolute Monos (auto) Absolute Eos (auto) Absolute Basos (auto) Absolute Nucleated RBC Nucleated RBC % Sodium 137 Potassium 3.4 L Chloride 106 Carbon Dioxide 24 Anion Gap 7 BUN 16 Creatinine 0.51 Est GFR ( Amer) 140.4 Est GFR (Non-Af Amer) 116.0 BUN/Creatinine Ratio 31.4 H Glucose 180 H Lactic Acid 1.3 Calcium 7.4 L Magnesium 1.9 Total Bilirubin AST ALT Alkaline Phosphatase Total Protein Albumin Globulin Albumin/Globulin Ratio Assessment: [s/p R GUTIERREZ with constrained liner placement and femoral head exchange 05/18 POD 2 UTI with sepsis protocol overnight] Plan: [PT/OT - WBAT R LE NO extreme ROM, NO hip flexion past 80 degrees Cont Pain management Con't abx per medicine and monitoring for sepsis Lovenox for DVT prophylaxis Right Calf tenderness today, h/o DVT/PE with Vicenta filter placed in past but history is unclear, Stat Doppler ordered to R/O DVT. Spoke with hospitalist who is aware of plan.
--- NOTE | 2019-05-20 15:25 | PN ---
Subjective Date of Service: 05/20/19 Interval History: Janneth complains of poor appetite since operation, which his son felt that was never better in years She denied fever, chills, no burning pain on urination, no cough. She haven't started mobilizing yet. She had one episode of low bp at 98/39mmhg last night with elevated lactic acid at 2.2, requirmg IV fluid. Objective Active Medications: Acetaminophen (Tylenol Tab*) 975 mg PO Q8H PRN PRN Reason: PAIN - MILD Last Admin: 05/19/19 17:04 Dose: 975 mg Calcium/Vitamin D (Oscal D Tab 250/125*) 1 tab PO DAILY [facility] Last Admin: 05/20/19 09:16 Dose: 1 tab Citalopram Hydrobromide (Celexa Tab*) 20 mg PO DAILY [facility] Last Admin: 05/20/19 09:16 Dose: 20 mg Enoxaparin Sodium (Lovenox(*)) 30 mg SUBCUT Q12H [facility] Last Admin: 05/20/19 09:19 Dose: 30 mg Erythromycin (Erythromycin Opth Oint*) 1 applic RIGHT EYE QID [facility] Last Admin: 05/20/19 12:26 Dose: 1 applic Fluticasone Propionate (Flonase Nasal [place] 50mcg*) 1 spray BOTH NARES DAILY [facility] Last Admin: 05/20/19 09:14 Dose: 1 spray Glycerin (Glycerin Adult Supp*) 1 supp [place] DAILY PRN PRN Reason: CONSTIPATION Sodium Chloride (Ns 0.9% 1000 Ml) 1,000 mls @ 100 mls/hr IV PER RATE [facility] Last Admin: 05/20/19 12:24 Dose: 100 mls/hr Ceftriaxone Sodium 2 gm/ (Sodium Chloride) 100 mls @ 200 mls/hr IVPB Q24H [facility] Stop: 05/25/19 15:59 Magnesium Hydroxide (Milk Of Magnesia Liq*) 30 ml PO Q6H PRN PRN Reason: CONSTIPATION Last Admin: 05/19/19 17:04 Dose: 30 ml Oxycodone HCl (Roxycodone Tab*) 5 mg PO Q6H PRN PRN Reason: Pain - Mod to Severe Potassium Chloride (Klor Con Er Tab*) 20 meq PO DAILY [facility] Last Admin: 05/20/19 09:17 Dose: 20 meq Senna (Senokot 8.6 Mg Tab*) 1 tab PO DAILY PRN PRN Reason: CONSTIPATION Last Admin: 05/17/19 15:57 Dose: 1 tab Vital Signs - 8 hr 05/20/19 05/20/19 05/20/19 07:29 08:00 11:33 Temperature 99.2 F 100.7 F Pulse Rate 91 83 Respiratory 20 20 16 Rate Blood Pressure 119/59 124/61 (mmHg) O2 Sat by Pulse 96 93 Oximetry Oxygen Devices in Use Now: None Exam: Appearance: pale looking, lying on the bed Eyes: No Scleral Icterus, - - keeps R eye lid closed Ears/Nose/Mouth/Throat: Clear Oropharnyx, Mucous Membranes Moist Neck: NL Appearance and Movements; NL JVP, Trachea Midline Respiratory: Symmetrical Chest Expansion and Respiratory Effort, Clear to Auscultation Cardiovascular: NL Sounds; No Murmurs; No JVD, RRR Abdominal:NL Sounds; No Tenderness; No Distention - no suprapubic tenderness, No Extremities:right hip operation side dressing intact, clean Skin:No Rash or Ulcers, Neurological: Alert and Oriented x 3 Result Diagrams: 05/20/19 05:27 05/20/19 05:27 Microbiology and Other Data: Microbiology 05/16/19 04:50 Nasal Screen MRSA (PCR) - Final Nasal Mrsa Not Detected Assess/Plan/Problems-Billing Assessment: 78W with DM2, RA on CellCept, anxiety/depression, h/o DVT/PE, 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 Course complicated by Proteus UTI leading to sepsis. - Patient Problems (1) Hip dislocation, right Current Visit: Yes Status: Acute Code(s): S73.004A - UNSPECIFIED DISLOCATION OF RIGHT HIP, INITIAL ENCOUNTER SNOMED Code(s): 304672154 Comment: - recurrent hip dislocation with history of right hip replacement and revision surgery - Revision right total hip arthroplasty with contrained liner placement and femoral head exchange done on 05/18 - appreciate ortho recs (2) UTI (urinary tract infection) Current Visit: Yes Status: Acute Comment: Hospital course with fever, leukocytosis, hypotension. Pt is immunosuppressed. UA concerning for infection. - urine cs showing proteus sensitive to ceftriaxone - D3 abx, narrowed to IV ceftriaxone today (3) DVT prophylaxis Current Visit: Yes Status: Acute Code(s): Z29.9 - ENCOUNTER FOR PROPHYLACTIC MEASURES, UNSPECIFIED SNOMED Code(s): 859884065 Comment: - start Lovenox 30mg bid pre op and post op as prophylaxis based on current recommendations - In patients undergoing major othropedic surgery, LMWH have been shown in randomized trials to be highly effective, and associated with low risk of major bleeding. Thus currently is the first line. Duration will be a miminium 10-14 days and extending to 35 days even. - no obvious bleeding of concern - right leg more swollen than left, US DVT was ordered today by ortho to rule out (4) Hematuria Current Visit: Yes Status: Acute Code(s): R31.9 - HEMATURIA, UNSPECIFIED SNOMED Code(s): 73721564 Comment: - likely due to traumatic james insertion - Hb stable, hematuria resolved - James was removed post op Status and Disposition: Inpatient Medicine, PT eval for disposition. Attestation Documenting Resident: Wendy Blanchard Supervising Physician: Mila Segura Attestation: This service has been performed in part by a resident under the direction of a teaching physician.I, Mila Segura, performed the service, or was physically present during the critical, or alcantara portions of the service, furnished by the resident. I participated in the management of the patient.
[2019-05-20] MEDS: cefTRIAXone(*) 2 GM in NS 0.9% 100 ML* 100 ML IVPB SCH (16:15)
[2019-05-20] MEDS: Acetaminophen TAB* 325 MG PO PRN (22:34)
[2019-05-21] MEDS: NS 0.9% 1000 ML** 1,000 ML IV SCH (02:48)
[2019-05-21 07:01] LABS: ABS Basophils 0.1 10^3/ul (0-0.2); ABS Eosinophils 0.4 10^3/ul (0-0.6); ABS Monocytes 0.8 10^3/ul (0-0.8); Eosinophil % 5.6 %; Hematocrit 30 % (35-47); Hemoglobin 10.1 g/dL (12.0-16.0); Lymphocyte % 13.8 %; Mean Corpuscular HGB Conc 34 g/dL (31-36); Mean Corpuscular Hemoglobin 29 pg (27-31); Mean Corpuscular Volume 84 fL (80-97); Mean Platelet Volume 7.3 fL (7.4-10.4); Platelet Count 277 10^3/uL (150-450); Red Blood Count 3.55 10^6 /uL (3.70-4.87); Red Cell Distribution Width 15 % (10-15); White Blood Count 7.3 10^3/uL (3.5-10.8)
[2019-05-21 07:20] LABS: BUN/Creatinine Ratio 17.9 (8-20); Calcium 7.5 mg/dL (8.6-10.3); EGFR African American 191.3 (>60); EGFR Non-African American 158.1 (>60); Potassium 3.2 mmol/L (3.5-5.0)
[2019-05-21] MEDS ORDERED: NS 0.9% w/ 20 Meq KCL 1000 ML* 1,000 ML IV SCH (09:00)
[2019-05-21] MEDS: Acetaminophen TAB* 325 MG PO PRN ×2 (09:32→17:26)
[2019-05-21] MEDS: Magnesium Oxide TAB* 400 MG PO SCH (09:32)
[2019-05-21] MEDS: Calcium/Vitamin D TAB 250/125* TAB PO SCH (09:32)
[2019-05-21] MEDS: Potassium Chlor TAB* 20 MEQ TAB.ER PO SCH ×2 (09:32→22:10)
[2019-05-21] MEDS: Citalopram TAB* 20 MG PO SCH (09:32)
[2019-05-21] MEDS: Erythromycin OPTH OINT* APPLIC OINT RIGHT EYE SCH ×4 (09:32→22:10)
[2019-05-21] MEDS: Enoxaparin(*) 30 MG/0.3 ML SYR SUBCUT SCH ×2 (09:33→19:59)
[2019-05-21] MEDS: Fluticasone NASAL SPRAY 50MCG* 16 gm SPRAY BTL BOTH NARES SCH (09:33)
--- NOTE | 2019-05-21 13:06 | PN ---
Subjective Date of Service: 05/21/19 Interval History: Patient still felt sleepy but improved. She didn't eat or drink much as she didn't appetite. Low grade fever T100.7 yesterday. She started to have occasional cough due to seasonal allergy, denied chills, denied diarrhea. Pain controlled, able to transfer with current pain med. Objective Active Medications: Acetaminophen (Tylenol Tab*) 975 mg PO Q8H PRN PRN Reason: PAIN - MILD Last Admin: 05/21/19 09:32 Dose: 975 mg Calcium/Vitamin D (Oscal D Tab 250/125*) 1 tab PO DAILY [facility] Last Admin: 05/21/19 09:32 Dose: 1 tab Citalopram Hydrobromide (Celexa Tab*) 20 mg PO DAILY [facility] Last Admin: 05/21/19 09:32 Dose: 20 mg Enoxaparin Sodium (Lovenox(*)) 30 mg SUBCUT Q12H [facility] Last Admin: 05/21/19 09:33 Dose: 30 mg Erythromycin (Erythromycin Opth Oint*) 1 applic RIGHT EYE QID [facility] Last Admin: 05/21/19 09:32 Dose: 1 applic Fluticasone Propionate (Flonase Nasal [place] 50mcg*) 1 spray BOTH NARES DAILY [facility] Last Admin: 05/21/19 09:33 Dose: 1 spray Glycerin (Glycerin Adult Supp*) 1 supp [place] DAILY PRN PRN Reason: CONSTIPATION Ceftriaxone Sodium 2 gm/ (Sodium Chloride) 100 mls @ 200 mls/hr IVPB Q24H [facility] Stop: 05/25/19 15:59 Last Admin: 05/20/19 16:15 Dose: 200 mls/hr Potassium Chloride/Sodium Chloride (Ns 0.9% W/ 20 Meq Kcl 1000 Ml*) 1,000 mls @ 100 mls/hr IV PER RATE [facility] Stop: 05/21/19 18:59 Last Admin: 05/21/19 11:57 Dose: 100 mls/hr Magnesium Hydroxide (Milk Of Magnesia Liq*) 30 ml PO Q6H PRN PRN Reason: CONSTIPATION Last Admin: 05/19/19 17:04 Dose: 30 ml Magnesium Oxide (Magox 400 Tab*) 400 mg PO DAILY [facility] Stop: 05/24/19 08:59 Last Admin: 05/21/19 09:32 Dose: 400 mg Oxycodone HCl (Roxycodone Tab*) 5 mg PO Q6H PRN PRN Reason: Pain - Mod to Severe Potassium Chloride (Klor Con Er Tab*) 20 meq PO BID [facility] Last Admin: 05/21/19 09:32 Dose: 20 meq Senna (Senokot 8.6 Mg Tab*) 1 tab PO DAILY PRN PRN Reason: CONSTIPATION Last Admin: 05/17/19 15:57 Dose: 1 tab Vital Signs - 8 hr 05/21/19 05/21/19 05/21/19 07:20 09:00 11:47 Temperature 98 F 98.3 F Pulse Rate 77 83 Respiratory 16 16 17 Rate Blood Pressure 120/62 119/57 (mmHg) O2 Sat by Pulse 95 98 Oximetry Oxygen Devices in Use Now: None Exam: Appearance: pale looking, lying on the bed Eyes: No Scleral Icterus, - - keeps R eye lid closed Ears/Nose/Mouth/Throat: Clear Oropharnyx, Mucous Membranes Moist Neck: NL Appearance and Movements; NL JVP, Trachea Midline Respiratory: Symmetrical Chest Expansion and Respiratory Effort, Clear to Auscultation Cardiovascular: NL Sounds; No Murmurs; No JVD, RRR Abdominal:NL Sounds; No Tenderness; No Distention - no suprapubic tenderness, No Extremities:right hip operation side dressing intact, clean, right hip swelling with warmth, no redness Skin:No Rash or Ulcers, Neurological: Alert and Oriented x 3 Result Diagrams: 05/21/19 06:33 05/21/19 06:33 Microbiology and Other Data: Microbiology 05/16/19 04:50 Nasal Screen MRSA (PCR) - Final Nasal Mrsa Not Detected Assess/Plan/Problems-Billing Assessment: 78W with DM2, RA on CellCept, anxiety/depression, h/o DVT/PE, 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 Course complicated by Proteus UTI leading to sepsis. - Patient Problems (1) Hip dislocation, right Current Visit: Yes Status: Acute Code(s): S73.004A - UNSPECIFIED DISLOCATION OF RIGHT HIP, INITIAL ENCOUNTER SNOMED Code(s): 624034757 Comment: - recurrent hip dislocation with history of right hip replacement and revision surgery - Revision right total hip arthroplasty with contrained liner placement and femoral head exchange done on 05/18 - recommend ortho recs (2) UTI (urinary tract infection) Current Visit: Yes Status: Acute Comment: Hospital course with fever, leukocytosis, hypotension. Pt is immunosuppressed. UA concerning for infection. - urine cs showing proteus sensitive to ceftriaxone - D4 abx, on IV ceftriaxone right now - will need to complete 7 days of course. (3) DVT prophylaxis Current Visit: Yes Status: Acute Code(s): Z29.9 - ENCOUNTER FOR PROPHYLACTIC MEASURES, UNSPECIFIED SNOMED Code(s): 518531330 Comment: - start Lovenox 30mg bid pre op and post op as prophylaxis based on current recommendations - In patients undergoing major othropedic surgery, LMWH have been shown in randomized trials to be highly effective, and associated with low risk of major bleeding. Thus currently is the first line. Duration will be a miminium 10-14 days and extending to 35 days even. - no obvious bleeding of concern - US dvt neg despite swollen right leg - will continue sc Lovenox to complete 14 days in total (4) Hematuria Current Visit: Yes Status: Acute Code(s): R31.9 - HEMATURIA, UNSPECIFIED SNOMED Code(s): 94756301 Comment: - likely due to traumatic james insertion - Hb stable, hematuria resolved - James was removed post op (5) Hypokalemia Current Visit: Yes Status: Acute Code(s): E87.6 - HYPOKALEMIA SNOMED Code( s): 25371747 Comment: due treplace K with oral and drip check K tomorrow was extermination supervisor K supplement will continu K on discharge Status and Disposition: Inpatient Medicine, PT/OT, aim to transfer to [facility] tomorrow Attestation Documenting Resident: Wendy Blanchard Supervising Physician: Mila Segura Attending/Supervising Physician Comment: Given Janneth's immunosuppressed status, she needs to be afebrile prior to discharge to [facility]. Attestation: This service has been performed in part by a resident under the direction of a teaching physician.I, Mila Segura, performed the service, or was physically present during the critical, or alcantara portions of the service, furnished by the resident. I participated in the management of the patient.
--- NOTE | 2019-05-21 14:59 | PN ---
Progress Note - Progress Note Date of Service: 05/21/19 SOAP: Subjective: []Pt seen at bedside. She feels well without complaints. Denies CP, SOB, dizziness or nausea. Hip pain is well controlled. Objective: []Gen: appears well, NAD RLE: Right hip dressing changed, incision CDI. Thigh is soft. DF/PF intact, DP2+ , sensation intact to light touch Calves supple and nontender without erythema, edema or palpable cords Assessment: [][s/p R GUTIERREZ with constrained liner placement and femoral head exchange UTI with sepsis protocol overnight] Plan: [][PT/OT - WBAT R LE NO extreme ROM, NO hip flexion past 80 degrees Cont Pain management Con't abx per medicine and monitoring for sepsis Lovenox for DVT prophylaxis Vital Signs Temp 98.3 F 05/21/19 11:47 Pulse 83 05/21/19 11:47 Resp 17 05/21/19 11:47 BP 119/57 05/21/19 11:47 Pulse Ox 98 05/21/19 11:47 Intake & Output 05/20/19 05/21/19 05/21/19 18:59 06:59 18:59 Intake Total 120 1385 1302 Output Total 700 1500 1200 Balance -580 -115 102 Intake: IV Fluids 985 852 ABX - CEFTRIAXONE 875 NS 110 852 Oral 120 400 450 Output: Urine 300 1500 1200 Liquid Stool 400 Other: Estimated Void Small Small # Voids 1 1 Laboratory Last Values WBC 7.3 10^3/uL (3.5-10.8) 05/21/19 06:33 RBC 3.55 10^6 /uL (3.70-4.87) L 05/21/19 06:33 Hgb 10.1 g/dL (12.0-16.0) L 05/21/19 06:33 Hct 30 % (35-47) L 05/21/19 06:33 MCV 84 fL (80-97) 05/21/19 06:33 MCH 29 pg (27-31) 05/21/19 06:33 MCHC 34 g/dL (31-36) 05/21/19 06:33 RDW 15 % (10-15) 05/21/19 06:33 Plt Count 277 10^3/uL (150-450) 05/21/19 06:33 MPV 7.3 fL (7.4-10.4) L 05/21/19 06:33 Neut % (Auto) 68.8 % 05/21/19 06:33 Lymph % (Auto) 13.8 % 05/21/19 06:33 [place] % (Auto) 10.8 % 05/21/19 06:33 Eos % (Auto) 5.6 % 05/21/19 06:33 Baso % (Auto) 1.0 % 05/21/19 06:33 Absolute Neuts (auto) 5.0 10^3/ul (1.5-7.7) 05/21/19 06:33 Absolute Lymphs (auto) 1.0 10^3/ul (1.0-4.8) 05/21/19 06:33 Absolute Monos (auto) 0.8 10^3/ul (0-0.8) 05/21/19 06:33 Absolute Eos (auto) 0.4 10^3/ul (0-0.6) 05/21/19 06:33 Absolute Basos (auto) 0.1 10^3/ul (0-0.2) 05/21/19 06:33 Absolute Nucleated RBC 0.0 10^3/ul 05/21/19 06:33 Nucleated RBC % 0.0 05/21/19 06:33 INR (Anticoag Therapy) 1.03 (0.82-1.09) 05/16/19 03:22 Sodium 138 mmol/L (135-145) 05/21/19 06:33 Potassium 3.2 mmol/L (3.5-5.0) L 05/21/19 06:33 Chloride 107 mmol/L (101-111) 05/21/19 06:33 Carbon Dioxide 26 mmol/L (22-32) 05/21/19 06:33 Anion Gap 5 mmol/L (2-11) 05/21/19 06:33 BUN 7 mg/dL (6-24) 05/21/19 06:33 Creatinine 0.39 mg/dL (0.51-0.95) L 05/21/19 06:33 Est GFR ( Amer) 191.3 (>60) 05/21/19 06:33 Est GFR (Non-Af Amer) 158.1 (>60) 05/21/19 06:33 BUN/Creatinine Ratio 17.9 (8-20) 05/21/19 06:33 Glucose 158 mg/dL (70-100) H 05/21/19 06:33 POC Glucose (mg/dL) 164 mg/dL (70-100) H 05/19/19 08:09 Lactic Acid 1.3 mmol/L (0.5-2.0) 05/20/19 05:27 Calcium 7.5 mg/dL (8.6-10.3) L 05/21/19 06:33 Magnesium 1.9 mg/dL (1.9-2.7) 05/20/19 05:27 Total Bilirubin 0.30 mg/dL (0.2-1.0) 05/19/19 21:07 Direct Bilirubin 0.10 mg/dL (0.03-0.18) 05/19/19 05:06 Indirect Bilirubin 0.4 mg/dL (0.3-1.0) 05/19/19 05:06 AST 17 U/L (13-39) 05/19/19 21:07 ALT 11 U/L (7-52) 05/19/19 21:07 Alkaline Phosphatase 39 U/L (34-104) 05/19/19 21:07 Troponin I 0.01 ng/mL (<0.04) 05/18/19 14:38 Total Protein 5.3 g/dL (6.4-8.9) L 05/19/19 21:07 Albumin 3.2 g/dL (3.2-5.2) 05/19/19 21:07 Globulin 2.1 g/dL (2-4) 05/19/19 21:07 Albumin/Globulin Ratio 1.5 (1-3) 05/19/19 21:07 Urine Color Rae 05/18/19 11:30 Urine Appearance Turbid 05/18/19 11:30 Urine pH 6.0 (5-9) 05/18/19 11:30 Ur Specific [place] 1.029 (1.010-1.030) 05/18/19 11:30 Urine Protein 2+(100 mg/dl) (Negative) A 05/18/19 11:30 Urine Ketones Trace (Negative) A 05/18/19 11:30 Urine Blood 3+ (Negative) A 05/18/19 11:30 Urine Nitrate Positive (Negative) A 05/18/19 11:30 Urine Bilirubin Negative (Negative) 05/18/19 11:30 Urine Urobilinogen Negative (Negative) 05/18/19 11:30 Ur Leukocyte Esterase 3+ (Negative) A 05/18/19 11:30 Urine WBC (Auto) 3+(>20/hpf) (Absent) A 05/18/19 11:30 Urine RBC (Auto) 3+(>10/hpf) (Absent) A 05/18/19 11:30 Urine Bacteria 1+ (Absent) A 05/18/19 11:30 Urine Glucose 2+(150 mg/dl) (Negative) A 05/18/19 11:30 Urine Ascorbic Acid * (Negative) A 05/18/19 11:30
[2019-05-21] MEDS: cefTRIAXone(*) 2 GM in NS 0.9% 100 ML* 100 ML IVPB SCH (15:49)
[2019-05-22 04:56] LABS: ABS Basophils 0.1 10^3/ul (0-0.2); ABS Eosinophils 0.7 10^3/ul (0-0.6); ABS Lymphocytes 0.9 10^3/ul (1.0-4.8); ABS Monocytes 0.6 10^3/ul (0-0.8); ABS Neutrophils 3.9 10^3/ul (1.5-7.7); Eosinophil % 10.9 %; Hematocrit 29 % (35-47); Hemoglobin 9.8 g/dL (12.0-16.0); Lymphocyte % 14.4 %; Mean Corpuscular HGB Conc 34 g/dL (31-36); Mean Corpuscular Hemoglobin 28 pg (27-31); Mean Corpuscular Volume 84 fL (80-97); Platelet Count 294 10^3/uL (150-450); Red Blood Count 3.44 10^6 /uL (3.70-4.87); Red Cell Distribution Width 14 % (10-15); White Blood Count 6.2 10^3/uL (3.5-10.8)
[2019-05-22 05:10] LABS: BUN/Creatinine Ratio 23.3 (8-20); Calcium 7.5 mg/dL (8.6-10.3); EGFR Non-African American 141.3 (>60); Potassium 3.7 mmol/L (3.5-5.0)
[2019-05-22] MEDS: Calcium/Vitamin D TAB 250/125* TAB PO SCH (09:21)
[2019-05-22] MEDS: Citalopram TAB* 20 MG PO SCH (09:22)
[2019-05-22] MEDS: Magnesium Oxide TAB* 400 MG PO SCH (09:22)
[2019-05-22] MEDS: Acetaminophen TAB* 325 MG PO PRN (09:23)
[2019-05-22] MEDS: Potassium Chlor TAB* 20 MEQ TAB.ER PO SCH (09:24)
[2019-05-22] MEDS: Fluticasone NASAL SPRAY 50MCG* 16 gm SPRAY BTL BOTH NARES SCH (09:25)
[2019-05-22] MEDS: Enoxaparin(*) 30 MG/0.3 ML SYR SUBCUT SCH (09:26)
[2019-05-22] MEDS: Erythromycin OPTH OINT* APPLIC OINT RIGHT EYE SCH (09:28)
[2019-05-22 11:18] VITALS: BP 118/55
--- NOTE | 2019-05-22 23:46 | DS ---
CC: Dr. Garvey * DISCHARGE SUMMARY: DATE OF ADMISSION: 05/16/19 DATE OF DISCHARGE: 05/22/19 PRINCIPAL DISCHARGE DIAGNOSES: 1. Dislocated hip prosthesis. 2. Complicated urinary tract infection. SECONDARY DISCHARGE DIAGNOSES: 1. Rheumatoid arthritis. 2. Osteoarthritis. 3. 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 4. Depression. 5. Anxiety. 6. Corneal melt syndrome. 7. Diabetes. MEDICATIONS: 1. CellCept 1000 mg b.i.d. 2. Celexa 20 mg daily. 3. Nasonex 1 spray daily. 4. Erythromycin ointment to right eye 4 times daily. 5. Metformin 1000 mg b.i.d. 6. Calcium carbonate plus vitamin D 1 tab daily. 7. Aspirin 325 mg daily, to be resumed after 10 days of Lovenox. 8. Tylenol 975 q.6 p.r.n. pain. 9. Augmentin 875 mg b.i.d. for 2 more days. 10. Lovenox 30 mg subcu q.12 hours for 10 more days. 11. KCl 20 mEq b.i.d. HOSPITAL COURSE BY PROBLEM: 1. Right hip prosthesis displacement. Ms. Bermudez has history of several hip dislocations and has required constrained liner placement in 2013. When she came to the ER, she was complaining of nontraumatic right hip pain and a pelvis CT showed superior posterior dislocation of the femoral prosthesis relative to the acetabular prosthesis. Orthopedic Surgery was consulted. Dr. Garcia took Ms. Bermudez to the OR on 05/18/19 and performed a revision of the right total hip arthroplasty with constrained liner placement and femoral head exchange. Her postop course was uneventful. She worked with Physical Therapy. The wound is healing well and the pain control was achieved with Tylenol. She needs followup with Dr. Garcia within 2 weeks. This will be arranged with [facility]. 2. Complicated urinary tract infection. Ms. Bermudez was noted to be febrile the night prior to surgery. A urinalysis was found to be positive and she was started on empiric antibiotics. Her urine culture then grew Proteus, which was sensitive to ceftriaxone. So, she was switched to ceftriaxone while she was admitted and at that time of discharge, she was switched to Augmentin for a 7 day total course. 3. Diabetes. She was on a sliding scale during her hospitalization and can be resumed on metformin at the time of discharge. 4. Rheumatoid arthritis. She was continued on CellCept. 5. DVT prophylaxis: She is to continue on Lovenox prophylactically for 10 more days. After this she can resume her home dose of aspirin. DISPOSITION: Ms. Bermudez is being discharged to [facility] for acute rehab. She and her son are in agreement with this plan. She lives at [facility] and her goal is to get back there. She needs a followup with Orthopedic Surgery within 2 weeks for suture removal. CONDITION AT THE TIME OF DISCHARGE: Stable. [id number]/CPS #: [id number] MTDD
== END 2019-05-22 15:22 | DRG 466 ==
LOC: ED 23:23 → SSU 05-16 04:05
PROVIDERS: ADMIT Internal Medicine; ATTEND Internal Medicine
PROC: 0SUR09Z Supplement Right Hip Joint, Femoral Surface with Liner, Open Approach (ICD-10-PCS; 2019-05-18)
PROC: 0SP909Z Removal of Liner from Right Hip Joint, Open Approach (ICD-10-PCS; principal; 2019-05-18 08:00)
DX: T84.020A Dislocation of internal right hip prosthesis, initial encounter (principal); R65.20 Severe sepsis without septic shock; A41.89 Other specified sepsis; N39.0 Urinary tract infection, site not specified; J45.909 Unspecified asthma, uncomplicated; M06.9 Rheumatoid arthritis, unspecified; E11.36 Type 2 diabetes mellitus with diabetic cataract; Z96.641 Presence of right artificial hip joint; Y65.8 Other specified misadventures during surgical and medical care; Z66 Do not resuscitate; F03.90 Unspecified dementia, unspecified severity, without behavioral disturbance, psychotic disturbance, mood disturbance, and anxiety; H18.899 Other specified disorders of cornea, unspecified eye; G57.31 Lesion of lateral popliteal nerve, right lower limb; F41.8 Other specified anxiety disorders; R31.9 Hematuria, unspecified; E87.6 Hypokalemia; B96.4 Proteus (mirabilis) (morganii) as the cause of diseases classified elsewhere; Z86.711 Personal history of pulmonary embolism; Z86.718 Personal history of other venous thrombosis and embolism; Z86.19 Personal history of other infectious and parasitic diseases; Y92.009 Unspecified place in unspecified non-institutional (private) residence as the place of occurrence of the external cause
CPT/HCPCS: 36415; 72192; 80048; 80053; 80076; 81003; 81015; 83605; 83735; 84484; 85025; 85027; 85610; 87077; 87086; 87186; 87641; 88300; 93005; 99284; A9270-GY; C1776; G8978-GP-CL; G8979-GP-CI; J0690; J0696; J1100; J1650; J1815; J2270; J2405; J2543; J2704; J2710; J2795; J3010

== ENCOUNTER 2019-05-27 11:48 | Inpatient (IN) | payer MEDICARE ==
--- NOTE | 2019-05-27 13:03 | ED ---
Lower Extremity - HPI Summary HPI Summary: Patient is a 79 y/o F who had surgery for right hip dislocation on 05/18/19 presenting to [facility] via EMS from OR with increased pain to the right hip. Patient has been in physical therapy since discharge from [facility] [place]. She reports that the pain had onset after her physical therapist had been shifting her to the side of her bed. Patient refuses pain medication. PMHx of diabetes, thyroid disease, DVT, asthma is noted. On triage, pain is rated 6/10, nothing is noted to aggravate/alleviate Sx. Home medications and allergies are reviewed. - History of Current Complaint Chief Complaint: EDHipPelvisInjury Stated Complaint: RT HIP PAIN PER EMS Time Seen by Provider: 05/27/19 12:04 Hx Obtained From: Patient Mechanism Of Injury: Other - no BRENDAN reported Onset of Pain: Prior to Arrival Onset/Duration: Still Present Severity Initially: Mild Severity Currently: Moderate Pain Intensity: 6 Pain Scale Used: 0-10 Numeric Timing: Constant Location: Is Discrete @ - right hip Associated Signs And Symptoms: Positive: Other - difficulty with ambulation Aggravating Factor(s): Nothing Alleviating Factor(s): Nothing - Allergies/Home Medications Allergies/Adverse Reactions: Allergies Allergy/AdvReac Type Severity Reaction Status Date / Time No Known Allergies Allergy Verified 05/27/19 11:54 Home Medications: Home Medications Enoxaparin(*) [Lovenox(*)] 30 mg SUBCUT BID 05/27/19 [History Confirmed 05/27/19 ] PMH/Surg Hx/FS Hx/Imm Hx Endocrine/Hematology History: Reports: Hx Diabetes, Hx Thyroid Disease - THYROID LEVELS FINE NOW Cardiovascular History: Reports: Hx Deep Vein Thrombosis - filter inserted Denies: Other Cardiovascular Problems/Disorders - HX BLOOD CLOTS RIGHT LEG Respiratory History: Reports: Hx Asthma - as a child Denies: Other Respiratory Problems/Disorders History: Denies: Other Problems/Disorders Musculoskeletal History: Reports: Hx Arthritis - rheumatoid arthritis, Other Musculoskeletal History - 5 RIGHT HIP LISLOCATIONS Denies: Hx Osteoporosis Sensory History: Reports: Hx Cataracts, Hx Contacts or Glasses Denies: Hx Hearing Aid Opthamlomology History: Reports: Hx Cataracts, Hx Contacts or Glasses Neurological History: Reports: Hx Nerve Disease - CURRENT SHINGLES LEFT ARM AND LEFT PALM Denies: Other Neuro Impairments/Disorders Psychiatric History: Reports: Hx Depression - MILD, ON MEDS - Surgical History Surgery Procedure, Year, and Place: RIGHT HIP total replacement in 2009 with revision in 2013, Dr. Garcia at [facility] [place]. April 2019, surgery for right hip dislocation Hx Anesthesia Reactions: No Infectious Disease History: No Infectious Disease History: Reports: Hx Shingles - CURRENTLY, MD AWARE Denies: Hx Clostridium Difficile, Hx Hepatitis, Hx Human Immunodeficiency Virus (HIV), Hx of Known/Suspected MRSA, Hx Tuberculosis, Hx Known/Suspected VRE , Hx Known/Suspected VRSA, History Other Infectious Disease, Traveled Outside the [place] in Last 30 Days - Family History Known Family History: Positive: Hypertension, Diabetes - Social History Alcohol Use: None Hx Substance Use: No Substance Use Type: Reports: None Hx Tobacco Use: No Smoking Status (MU): Never Smoked Tobacco Have You Smoked in the Last Year: No Review of Systems Negative: Fever - on vitals, temp is 98 F Musculoskeletal: Other - positive - right hip pain All Other Systems Reviewed And Are Negative: Yes Physical Exam - Summary Physical Exam Summary: Appearance: The patient is well-nourished in no acute distress and in no acute pain. Skin: The skin is warm and dry, and skin color reflects adequate perfusion. HEENT: The head is normocephalic and atraumatic. The pupils are equal and reactive. The conjunctivae are clear and without drainage. Nares are patent and without drainage. Mouth reveals moist mucous membranes, and the throat is without erythema and exudate. The external ears are intact. The ear canals are patent and without drainage. The tympanic membranes are intact. Neck: The neck is supple with full range of motion and non-tender. There are no carotid bruits. There is no neck vein distension. Respiratory: Chest is non-tender. Lungs are clear to auscultation and breath sounds are symmetrical and equal. Cardiovascular: Heart is regular rate and rhythm. There is no murmur or rub auscultated. There is no peripheral edema and pulses are symmetrical and equal. Abdomen: The abdomen is soft and non-tender. There are normal bowel sounds heard in all four quadrants and there is no organomegaly palpated. Musculoskeletal: There is no back tenderness noted. There is tenderness to the right hip. There is good capillary refill. There is no peripheral edema or calf tenderness elicited. Neurological: Patient is alert and oriented to person, place and time. The patient has symmetrical motor strength in all four extremities. Cranial nerves are grossly intact. Deep tendon reflexes are symmetrical and equal in all four extremities. Psychiatric: The patient has an appropriate affect and does not exhibit any anxiety or depression. Triage Information Reviewed: Yes Vital Signs On Initial Exam: Initial Vitals Temp Pulse Resp BP Pulse Ox 98.0 F 94 12 110/60 97 05/27/19 11:50 05/27/19 11:50 05/27/19 11:50 05/27/19 11:50 05/27/19 11:50 Vital Signs Reviewed: Yes Procedures - Sedation Patient Received Moderate/Deep Sedation with Procedure: No Diagnostics - Vital Signs Vital Signs Temp Pulse Resp BP Pulse Ox 05/27/19 12:24 88 20 114/60 98 05/27/19 12:00 88 23 97 05/27/19 11:54 91 97 05/27/19 11:53 92 97 05/27/19 11:50 98.0 F 94 12 110/60 97 - Laboratory Result Diagrams: 05/27/19 14:27 05/27/19 14:27 Lab Statement: Any lab studies that have been ordered have been reviewed, and results considered in the medical decision making process. - Radiology RIGHT HIP/PELVIS X-RAY Radiology Interpretation Completed By: Radiologist Summary of Radiographic Findings: 1. SUPERIOR DISLOCATION OF THE PROSTHETIC RIGHT HIP (ACETABULAR CUP REMAINS IN PLACE). 2. SEVERE LEFT HIP OSTEOARTHROPATHY. 3. OSTEOPENIA. THIS REPORT WAS REVIEWED BY DR. RUSH. Lower Extremity Course/Dx - Course Course Of Treatment: Ms. Bermudez was being shifted around in the bed in order to do PT when she had a sudden severe pain in her right hip. She was found here to have a dislocated prosthesis. I spoke with Dr. Haynes who reviewed the films and felt that she needed open reduction. - Diagnoses Provider Diagnoses: Dislocation of internal right hip prosthesis - Physician Notifications Discussed Care Of Patient With: Mitchell Luis Time Discussed With Above Provider: 13:24 Instructed by Provider To: Other - 1324 - Patient's case was discussed with Dr. Luis. Dr. Luis will send VELMA Brown to evaluate the patient in ED, notes possibility of open reduction. 1417 - VELMA Brown has evaluated the patient, the patient will be admitted to orthopedic services. Discharge ED - Sign-Out/Discharge Documenting (check all that apply): Patient Departure - admit - Discharge Plan Condition: Stable Disposition: ADMITTED TO [facility] - Billing Disposition and Condition Condition: STABLE Disposition: Admitted to [facility] - Attestation Statements Document Initiated by Mundo: Yes Documenting Scribe: CECY ALEXANDER Provider For Whom Mundo is Documenting (Include Credential): ABHISHEK RUSH MD Scribe Attestation: CECY Sebastian, scribed for ABHISHEK RUSH MD on 05/27/19 at 1959. Scribe Documentation Reviewed: Yes Provider Attestation: The documentation as recorded by the CECY pozo accurately reflects the service I personally performed and the decisions made by me, ABHISHEK RUSH MD Status of Scribe Document: Viewed
[2019-05-27] MEDS ORDERED: Ondansetron INJ* 2 MG/ML VIAL IV PRN (14:26)
[2019-05-27] MEDS ORDERED: oxyCODONE TAB* 5 MG TAB PO PRN (14:26)
[2019-05-27] MEDS ORDERED: Ondansetron ODT TAB* 4 MG PO PRN (14:26)
[2019-05-27] MEDS ORDERED: diPHENhydraMINE IV* 50 MG/ML 1 ml VIAL (BENADRYL) IV PRN (14:26)
[2019-05-27] MEDS ORDERED: diPHENhydraMINE PO* 25 MG PO PRN (14:26)
[2019-05-27] MEDS ORDERED: Magnesium Hydroxide LIQ* 30 ML UDC PO PRN (14:26)
[2019-05-27] MEDS ORDERED: Morphine INJ* 2 MG/ML 1 ML SYRINGE (TWO MG - NEW SYRINGE VERSION) IV PRN (14:26)
[2019-05-27 14:41] LABS: ABS Basophils 0.1 10^3/ul (0-0.2); ABS Eosinophils 0.4 10^3/ul (0-0.6); ABS Monocytes 0.9 10^3/ul (0-0.8); ABS Neutrophils 7.7 10^3/ul (1.5-7.7); Eosinophil % 3.9 %; Hematocrit 28 % (35-47); Hemoglobin 9.3 g/dL (12.0-16.0); Lymphocyte % 17.6 %; Mean Corpuscular HGB Conc 33 g/dL (31-36); Mean Corpuscular Hemoglobin 28 pg (27-31); Mean Corpuscular Volume 85 fL (80-97); Mean Platelet Volume 6.9 fL (7.4-10.4); Nucleated Red Blood Cells % 0.1; Platelet Count 368 10^3/uL (150-450); Red Blood Count 3.28 10^6 /uL (3.70-4.87); Red Cell Distribution Width 15 % (10-15); White Blood Count 11.1 10^3/uL (3.5-10.8)
[2019-05-27 14:48] LABS: INR 1.03 (0.82-1.09)
[2019-05-27 15:02] LABS: BUN/Creatinine Ratio 26.2 (8-20); Calcium 8.6 mg/dL (8.6-10.3); EGFR African American 175.2 (>60); EGFR Non-African American 144.8 (>60); Potassium 4.2 mmol/L (3.5-5.0)
[2019-05-27] MEDS: Lactated Ringers 1000 ML Bag* 1,000 ML IV SCH (16:27)
[2019-05-27] MEDS: traMADol TAB* 50 MG PO PRN (16:29)
[2019-05-27] MEDS: Erythromycin OPTH OINT* APPLIC OINT RIGHT EYE SCH ×2 (16:32→22:43)
--- NOTE | 2019-05-27 17:18 | CONS ---
CC: VELMA Curry; Dr. Anthony Garvey * CONSULTATION REPORT: DATE OF CONSULT: 05/27/19 MY ATTENDING WHILE IN THE HOSPITAL: Dr. Arabella Antony. CONSULTING PROVIDER: VELMA Curry PRIMARY CARE PROVIDER: Dr. Anthony Garvey. REASON FOR CONSULT: Preoperative management. CHIEF COMPLAINT: Right hip pain. HISTORY OF PRESENT ILLNESS: Ms. Bermudez is an 79-year-old female with past medical history significant for rheumatoid arthritis, recurrent hip dislocations , diabetes mellitus type 2 and history of provoked DVT and PE, who presents to the emergency department from [facility] where she is undergoing rehab where she noticed worsening in pain in her right hip sometime last night with movement and the pain then became severe this afternoon when she was trying to get to the edge of the bed. The patient was noted to have deformity of the right lower extremity and was sent to the emergency department. The patient was feeling relatively well prior to this. The patient had no chest pain, shortness of breath. The patient had no trauma associated with this. The patient had no fevers or chills. The patient had recently been admitted to the hospital for a revision of her hip with a new femoral head and acetabular cup placement and was on hip precautions which according to VELMA Curry, she inadvertently violated likely leading to her dislocation. Since she has been in the emergency department states there is also pain in her left leg, but this is relatively mild. The patient denies any new numbness or tingling in her distal right lower extremity, but stating that she has chronic neuropathy in this leg that comes and goes. The patient has no swelling in her leg. No bleeding issues. No chest pain, no shortness of breath. No passing out. No palpitations. No fevers or chills. No dysuria. No abdominal pain, no diarrhea. The patient has limited activity tolerance at this point due to her recent hip surgery. The patient is planned to go to the operating room for closed reduction of her hip and open reduction if needed this evening or tomorrow. 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 PAST SURGICAL HISTORY: Cholecystectomy, hip surgery in 2009, revision in 2013, D and C. MEDICATIONS: 1. CellCept 1000 mg p.o. b.i.d. 2. Citalopram 20 mg p.o. daily. 3. Nasonex 1 inhalation daily. 4. Erythromycin ophthalmic ointment 1 application to right eye 4 times daily. 5. Metformin 1000 mg p.o. b.i.d. 6. Norberto-D 1 tab p.o. daily. 7. Tylenol 975 mg p.o. q.6 hours as needed. 8. Potassium chloride 20 mEq p.o. b.i.d. 9. Aspirin 325 mg p.o. daily. 10. Lovenox 30 mg subcu b.i.d. ALLERGIES: No known drug allergies. FAMILY HISTORY: The patient's father had rheumatoid arthritis, osteoarthritis, psoriasis and of flu. The patient's mother at 97 of old age. SOCIAL HISTORY: The patient denies ever smoking. Denies illicit drug abuse and alcohol. The patient used to work in a bank. The patient currently resides at [facility] and used to live at [place]. The patient has 2 children. The patient's surrogate decision maker will be her son, Vasyl Bermudez. REVIEW OF SYSTEMS: A 14-point review of systems was reviewed and is negative except as above in the HPI. PHYSICAL EXAM: General: The patient is an 79-year-old female, who appears stated age, has her right eye primarily closed and is in no acute distress. Vital Signs: Temperature 98.0, pulse rate 86, respiratory rate 22, oxygen saturation 97% on room air, blood pressure 114/63. HEENT: Head normocephalic, atraumatic. Sclerae anicteric. No conjunctival injection. Nasal mucosa moist. Oral mucosa moist. No pharyngeal erythema, discharge, or exudate. Neck: Supple, nontender. No lymphadenopathy. No carotid bruits auscultated. No JVD. Cardiac: Regular rate and rhythm. No clicks, murmurs, gallops, or rubs. Pulses are 2+ in the bilateral dorsalis pedis, posterior tibialis, and radial areas. No bilateral lower extremity edema. No bilateral calf tenderness. Respiratory: Clear to auscultation bilaterally. No wheezes, rales, or rhonchi. Good air exchange bilaterally. Abdomen: Soft, nontender, nondistended. Bowel sounds present and normoactive in all 4 quadrants. No hepatosplenomegaly. No abdominal bruits auscultated. No hepatojugular reflux. Genitourinary: No suprapubic or CVA tenderness. Skin: Clean, dry, and intact. No rash. Neuro: Cranial nerves II through XII intact. No focal deficits. Alert and oriented x3. Psychiatric: Pleasant and cooperative. DIAGNOSTIC STUDIES/LAB DATA: Hip x-ray read as superior dislocation of the prosthetic right hip, acetabular cup remains in place, severe left hip osteoarthropathy, osteopenia. Laboratory data: None. ASSESSMENT AND PLAN: Impression: Ms. Bermudez is an 79-year-old female with past medical history significant for rheumatoid arthritis, provoked deep venous thrombosis and pulmonary embolism and diabetes mellitus type 2, who presents to the emergency department with recurrent dislocation of her right hip only 1 week after she had a revision with an acetabular cup and femoral head replacement. The patient will be planned to go to the OR for attempt at closed reduction and open reduction if needed. 1. Right hip dislocation. The patient had a nontraumatic right hip dislocation likely related to her not abiding by her hip precautions. The patient has no cardiac issues. The patient's metabolic equivalents are hard to quantify given she has not been able to walk recently; however, the patient has no chest pain, no shortness of breath. The patient underwent surgery 1 week ago without any issue. The patient has no known cardiac disease and no chronic kidney disease. The patient's RCRI is 0, indicating a 3.9% chance of major adverse cardiac outcomes in the next 30 days. The patient has no signs of heart failure. The patient is currently medically optimized. The patient's mycophenolate will be held. The patient will have a BMP preoperatively. The patient is otherwise medically optimized for surgery. 2. Diabetes mellitus type 2. The patient will be monitored on fingersticks. The patient will not have corrected insulin at this time and she is n.p.o. The patient may resume her metformin postoperatively. 3. Rheumatoid arthritis. Hold the patient's CellCept, resume postoperatively. 4. Recent history of urinary tract infection. The patient has finished her dosing for Augmentin. The patient will be rechecked for a urinary tract infection and this will be treated if indicated. 5. Osteoarthritis. Continue pain control with tramadol and morphine per Orthopedics. 6. Corneal melt syndrome, right eye. Continue the patient on erythromycin ophthalmic ointment. 7. DVT prophylaxis: Resume Lovenox 30 mg subcutaneous b.i.d. postoperatively or otherwise per Orthopedics. 8. FEN: The patient will be n.p.o. at this time. The patient will have a consistent carbohydrate diet and fluids until she is able to tolerate oral intake. 9. Disposition: Per Orthopedics. TIME SPENT: Approximately 60 minutes was spent on this consultation, 30 of which was spent [id number] with the patient obtaining history and physical and discussing the treatment plan. This plan was discussed with my attending, Dr. Arabella Antony, and she is in agreement. VELMA VERMA [id number]/[facility] #: [id number] MTDD
--- NOTE | 2019-05-27 18:56 | HP ---
ADMISSION HISTORY AND PHYSICAL: DATE OF ADMISSION: 05/27/19 ATTENDING ORTHOPEDIC PHYSICIAN: Dr. Leah Garcia.* (DICTATED BY VELMA GRANADOS) CHIEF COMPLAINT: Right hip dislocation. HISTORY OF PRESENT ILLNESS: The patient is an 79-year-old female. She has a past medical history significant for diabetes, right total hip replacement, right hip revision with femoral head exchange and constrained liner placement on 05/21/[address] Leah Garcia. She was discharged to [facility] where she was walking with a walker without pain and progressing with physical therapy until yesterday, 05/26/19. She did not get out of bed 05/26 and states that when she went to sit on the edge of the bed she had severe pain in her right hip and was unable to bear weight. At this point, she came to the emergency room and x-ray demonstrates she has a right total hip dislocation. The patient reports sharp pain in the right hip aggravated by movement and better with rest without any associated numbness or tingling. She is unable to bear weight. PAST MEDICAL HISTORY: 1. Diabetes. 2. Seasonal allergies. 3. Depression. 4. Anxiety. 5. History of DVT and PE. She has a Doug[place] filter in place. 6. Rheumatoid arthritis. 7. Osteoarthritis. 8. Corneal melt syndrome. PAST SURGICAL HISTORY: 1. Right total hip replacement. 2. Revision of the right total hip femoral head and placement of constrained liner. 3. Cholecystectomy. 4. D and C. HOME MEDICATIONS: Include: 1. Erythromycin 0.5% ophthalmic drops to the right eye 4 times a day. 2. Celexa 20 mg daily. 3. Calcium with vitamin D 1 tablet daily. 4. Metformin 1000 mg p.o. b.i.d. 5. CellCept 1000 mg p.o. b.i.d. 6. Nasonex 1 spray daily. 7. Aspirin 325 mg daily, last taken today. 8. Lovenox 30 mg subcutaneous injection daily, last injected this morning. 9. Potassium 20 mEq p.o. b.i.d. ALLERGIES: No known drug allergies. FAMILY HISTORY: SOCIAL HISTORY: The patient lives at [facility] though since her hip revision last week, she has been at [facility]. She is a nonsmoker. She does not drink alcohol. REVIEW OF SYSTEMS: General: Denies any fever, chills, or recent illness. HEENT: No headache. No change in vision. Cardiac: No chest pain. No history of heart attack. Respiratory: No shortness of breath, no cough. GI: No abdominal pain, nausea, vomiting, or diarrhea. : No dysuria. Musculoskeletal: Negative for extremity pain aside from the right hip pain. Neuro: No numbness or tingling of upper or lower extremities. Does have some degree of foot drop on the right lower extremity. Hematology: Has history of DVT and PE. PHYSICAL EXAMINATION GENERAL: Well appearing, in no acute distress, non-toxic appearing. VITAL SIGNS: Temperature 98.0, heart rate 86, respiratory rate 22, oxygen saturation 97, blood pressure 114/63. HEENT: Normocephalic, atraumatic. LUNGS: Clear to auscultation bilaterally. HEART: S1, S2. ABDOMEN: Bowel sounds normoactive, soft, nontender and nondistended. EXTREMITIES: Bilateral upper extremities and left lower extremity skin envelope intact. Nontender to palpation. Able to flex and extend all joints without any pain. Right lower extremity: Skin envelope intact, tender to palpation over the right hip. Her right leg is short and internally rotated. Able flex and extend MTPs and ankle without any pain. Does not move the hip or knee due to knee pain. DIAGNOSTIC STUDIES/LAB DATA: Diagnostic studies demonstrate dislocation of the right hip. Laboratory studies: White blood cell count 11.1, hemoglobin 9.3, hematocrit 28 , INR 1.03. BMP not yet resulted. Additionally, a type and screen has been ordered. IMPRESSION: This is an 79-year-old female with right hip dislocation. PLAN: NWB RLE, bedrest. The patient is to be kept n.p.o. from now until operative plans are in place. Of note, she has taken Lovenox as well as aspirin this morning. Her last meal was at 8:30 this morning, she has been NPO since. She will be seen by the hospitalist service for medical optimization. Dr Garcia will see her later today for surgical planning, if no surgery today she will be given a diet and chemical DVT prophy restarted. CBC,BMP, INR, type and screen have been ordered. GIANNI SIMONS, VELMA [id number]/[facility] #: [id number] [facility]ITAL CENTERMargot
[2019-05-27] MEDS ORDERED: Mycophenolate Mofetil TAB(*) 500 MG PO SCH (21:00)
[2019-05-27] MEDS ORDERED: Amoxicillin/Clavulanate TAB* 875 MG PO SCH (21:00)
--- NOTE | 2019-05-27 21:08 | CONS ---
ORTHOPEDIC CONSULTATION NOTE: DATE OF CONSULT: 05/27/19 CHIEF COMPLIANT: Right hip pain. HISTORY OF PRESENT ILLNESS: Ms. Bermudez is an 79-year-old female with history of multiple dislocations of her right hip. She initially had right total hip arthroplasty with a doctor from an outside group. In 2013, I saw the patient and did revise her to a constrained liner. She did well for almost 6 years until 05/16/19 when she dislocated the constrained liner. We did revise the patient on 05/18/19. We, per the patient's wishes, revised her to another constrained liner. Postoperatively, the patient was not following precautions very well. She was discharged to a [facility] facility and presents today already with a complete dislocation and failure of the constrained liner. She reports 6/10 pain in the right hip. She reports that she did not have muscle strength to follow the precautions and she would often forget the precautions. She is very depressed today. Any movement of the right leg increases her pain. She denies pain elsewhere. PAST MEDICAL HISTORY: Diabetes, osteoarthritis, seasonal allergies, depression , anxiety, history of DVT and PE requiring [place] filter placement, history of some footdrop on the right side, rheumatoid arthritis with corneal melt syndrome. PAST SURGICAL HISTORY: Right hip surgery initially 2009 with revision 2013, above- mentioned 05/16/19 revision to another constrained liner with current failure again. HOME MEDICATIONS: 1. Erythromycin 0.5 mg to the right eye 4 times a day. 2. Celexa 20 mg p.o. daily. 3. Calcium with vitamin D 1 tablet p.o. daily. 4. Metformin 1000 mg p.o. b.i.d. 5. CellCept 1000 mg p.o. b.i.d. 6. Nasonex 1 spray daily. 7. Aspirin 325 mg p.o. daily. 8. Potassium 20 mEq p.o. daily. 9. Lovenox 30 mg subcu daily. ALLERGIES: No known drug allergies. FAMILY HISTORY: Negative. SOCIAL HISTORY: The patient was living at [place]. She had been discharged to a [facility] facility, normally ambulates with a walker short distances. She is DNR/DNI, primary decision maker. Surrogate decision maker is her son, Vasyl, who is at the bedside. REVIEW OF SYSTEMS: Fourteen systems reviewed with the patient today and positive for right hip pain, weakness, fatigue, and depression. Otherwise, review of systems is negative or not relevant. PHYSICAL EXAM: Vitals: Temperature 98.7, pulse of 85, blood pressure 130/48. General: The patient is a well-nourished female, in no apparent distress, alert and oriented x3, depressed mood, and appropriate affect. Accompanied by her supportive son. Gait is not assessed. HEENT: The patient is atraumatic. Her right eyelid is closed. Neck is supple with no palpable lymph nodes. Trachea midline. Heart: S1, S2. Chest: Lungs are clear to auscultation in all lung knox. No wheezes, rubs, or rhonchi. Abdomen: Soft, nontender, nondistended. Right lower extremity: Right hip is rotated and shortened. She has dorsiflexion, although some weakness with dorsiflexion, 2+ palpable DP pulse. The foot is warm. DIAGNOSTIC STUDIES/LAB DATA: Labs: White blood cells today are 11.1, hematocrit 28, platelets 368. INR 1.03. Sodium 136, potassium 4.2, BUN and creatinine 11 and 0.42. Studies: Multiple views of the right hip show a complete dislocation of the constrained liner once again. ASSESSMENT AND PLAN: Ms. 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 The patient on 05/18/19 had revision to another constrained liner. The patient's family and I had discussed revision of the implants with better position of the cup, but she had declined this because of her age. I believe the patient is unable to remember the hip precautions. Also, I believe she has poor muscle tone around the hip. I am unsure whether revision of the acetabular cup would yield a stable total hip arthroplasty that would not dislocate. Today, the patient, her son, and I discussed 2 options. We discussed revision of the acetabulum and/or femoral stem. They understand she would be at risk of continued dislocations and the need for further surgery. We also discussed a Girdlestone procedure with removal of the hardware. She understands she would have limited ambulatory functional status after the surgery. She understands the leg would be shortened. She would likely need a heel lift and use of a wheelchair for long distance. The patient is depressed today and understandably overwhelmed by her recurrent instability. She and her son will discuss her options. I am ordering explant instruments and revision hardware. For now, she will be on a normal diet, on Lovenox. We will likely plan for revision surgery versus Girdlestone procedure on 05/29/19. She will be on bedrest. She will have a Cortes catheter. She will have p.r.n. pain medication. She will have q. shift neurovascular checks. The hospitalist group has consulted and feels that she is medically optimized for surgery. [id number]/[facility] #: [id number] VANESA
[2019-05-27] MEDS: Docusate CAP* 100 MG PO SCH (21:49)
[2019-05-27] MEDS: Magnesium Hydroxide LIQ* 30 ML UDC PO SCH (21:49)
[2019-05-27] MEDS: Enoxaparin(*) 30 MG/0.3 ML SYR SUBCUT SCH (21:49)
[2019-05-27] MEDS: Potassium Chlor TAB* 20 MEQ TAB.ER PO SCH (21:50)
[2019-05-28] MEDS: Lactated Ringers 1000 ML Bag* 1,000 ML IV SCH ×3 (01:52→23:37)
[2019-05-28] MEDS ORDERED: Dextrose 50% VIAL 50 ml IV PUSH PRN (07:28)
[2019-05-28] MEDS: Insulin LISPRO* 1 UNITS UNIT SUBCUT SCH ×4 (08:27→21:27)
[2019-05-28] MEDS: Erythromycin OPTH OINT* APPLIC OINT RIGHT EYE SCH ×4 (08:33→21:10)
[2019-05-28] MEDS: Citalopram TAB* 20 MG PO SCH (08:33)
[2019-05-28] MEDS: Vitamin THERAPEUTIC TAB PO SCH (08:33)
[2019-05-28] MEDS: Potassium Chlor TAB* 20 MEQ TAB.ER PO SCH ×2 (08:33→21:27)
[2019-05-28] MEDS: Docusate CAP* 100 MG PO SCH ×2 (08:33→21:27)
[2019-05-28] MEDS: Fluticasone NASAL SPRAY 50MCG* 16 gm SPRAY BTL BOTH NARES SCH (08:33)
[2019-05-28] MEDS: Enoxaparin(*) 30 MG/0.3 ML SYR SUBCUT SCH (08:34)
[2019-05-28] MEDS: Magnesium Hydroxide LIQ* 30 ML UDC PO SCH ×2 (08:38→21:27)
[2019-05-28] MEDS ORDERED: Aspirin TAB* 325 MG PO SCH (09:00)
--- NOTE | 2019-05-28 09:21 | PN ---
Subjective Date of Service: 05/28/19 Interval History: Patient resting in bed. Reports mild pain to the right thigh, tolerable. Is in no acute distress, has no acute complaints other than discomfort with using bedpan. Denies headaches, fever, chills, chest pain, shortness of breath, abdominal pain, nausea, vomiting, troubles with bowel or bladder. Family History: Unchanged from Admission Social History: Unchanged from Admission Past Medical History: Unchanged from Admission Objective Active Medications: Acetaminophen (Tylenol Tab*) 975 mg PO Q8HR PRN PRN Reason: MILD PAIN or TEMP > 100.4 Bisacodyl (Dulcolax Supp*) 10 mg NV DAILY PRN PRN Reason: CONSTIPATION Citalopram Hydrobromide (Celexa Tab*) 20 mg PO DAILY [facility] Last Admin: 05/28/19 08:33 Dose: 20 mg Cyclobenzaprine HCl (Flexeril Tab*) 10 mg PO Q6H PRN PRN Reason: SPASMS Dextrose (Dextrose 50% Vial 50 Ml*) 25 ml IV PUSH .FOR FS < 60 - SS PRN PRN Reason: FS < 60 Diphenhydramine HCl (Benadryl Iv*) 25 mg IV Q6H PRN PRN Reason: PRURITIS Diphenhydramine HCl (Benadryl Po*) 25 mg PO Q6H PRN PRN Reason: PRURITIS Docusate Sodium (Colace Cap*) 100 mg PO BID [facility] Last Admin: 05/28/19 08:33 Dose: 100 mg Enoxaparin Sodium (Lovenox(*)) 30 mg SUBCUT BID [facility] Stop: 05/28/19 20:00 Last Admin: 05/28/19 08:34 Dose: 30 mg Erythromycin (Erythromycin Opth Oint*) 1 applic RIGHT EYE QID [facility] Last Admin: 05/28/19 08:33 Dose: 1 applic Fluticasone Propionate (Flonase Nasal [place] 50mcg*) 1 spray BOTH NARES DAILY [facility] Last Admin: 05/28/19 08:33 Dose: 1 spray Lactated Ringer's (Lactated Ringers 1000 Ml Bag*) 1,000 mls @ 100 mls/hr IV PER RATE [facility] Last Admin: 05/28/19 01:52 Dose: 100 mls/hr Insulin Human Lispro (Humalog*) 0 units SUBCUT ACHS [facility]; Protocol Last Admin: 05/28/19 08:27 Dose: Not Given Lactulose (Lactulose*) 30 ml PO BID PRN PRN Reason: CONSTIPATION Magnesium Hydroxide (Milk Of Magnesia Liq*) 30 ml PO BID [facility] Last Admin: 05/28/19 08:38 Dose: Not Given Magnesium Hydroxide (Milk Of Magnesia Liq*) 30 ml PO Q6H PRN PRN Reason: CONSTIPATION Morphine Sulfate (Morphine Inj (Syringe))*) 2 mg IV Q4H PRN PRN Reason: Pain - Unrelieved Multivitamins (Theragran Tab*) 1 tab PO DAILY [facility] Last Admin: 05/28/19 08:33 Dose: 1 tab Ondansetron HCl (Zofran Inj*) 4 mg IV Q6H PRN PRN Reason: NAUSEA Ondansetron HCl (Zofran Odt Tab*) 4 mg PO Q6H PRN PRN Reason: NAUSEA Oxycodone HCl (Roxycodone Tab*) 5 mg PO Q4H PRN PRN Reason: Pain - Breakthrough Potassium Chloride (Klor Con Er Tab*) 20 meq PO BID [facility] Last Admin: 05/28/19 08:33 Dose: 20 meq Tramadol HCl (Ultram*) 50 mg PO Q6H PRN PRN Reason: PAIN - MODERATE Last Admin: 05/27/19 16:29 Dose: 50 mg Vital Signs - 8 hr 05/28/19 05/28/19 05/28/19 04:17 07:35 07:43 Temperature 99.8 F 98.7 F Pulse Rate 84 77 Respiratory 16 16 16 Rate Blood Pressure 109/51 109/53 (mmHg) O2 Sat by Pulse 98 96 Oximetry Oxygen Devices in Use Now: None Appearance: This is a thin, pale older woman seen resting in bed. No acute distress. Eyes: No Scleral Icterus, PERRLA, - - Right eye stuck shut due to build up of mucuus. Left eye able to open, though noted copious mucous build up. Ears/Nose/Mouth/Throat: Clear Oropharnyx, Mucous Membranes Moist Neck: NL Appearance and Movements; NL JVP Respiratory: Symmetrical Chest Expansion and Respiratory Effort Cardiovascular: NL Sounds; No Murmurs; No JVD, RRR, - - +2-3 non-pitting edema to right hip. Abdominal: NL Sounds; No Tenderness; No Distention Lymphatic: No Cervical Adenopathy Extremities: No Clubbing, Cyanosis Skin: No Rash or Ulcers, No Nodules or Sclerosis, - - Dressing to right hip is clean, dry and intact. Neurological: Alert and Oriented x 3 Lines/Tubes/Other Access: Clean, Dry and Intact Peripheral IV Result Diagrams: 05/27/19 14:27 05/27/19 14:27 Microbiology and Other Data: Microbiology 05/27/19 14:56 Nasal Screen MRSA (PCR) - Final Nasal Mrsa Not Detected Assess/Plan/Problems-Billing Assessment: This is an 79 year old female with a PMH significant for DM, RA, and DVT/PE who was admitted on 05/27/19 for right hip dislocation. Had a right total hip revision on 05/18/19. Dislocated likely due to poor muscle tone, not for lack of following hip precautions. - Patient Problems (1) Hip dislocation, right Current Visit: No Status: Acute Code(s): S73.004A - UNSPECIFIED DISLOCATION OF RIGHT HIP, INITIAL ENCOUNTER SNOMED Code(s): 387699036 Comment: - recurrent hip dislocation with history of right hip replacement and revision surgery - Revision right total hip arthroplasty with contrained liner placement and femoral head exchange done on 05/18 -Will undergo another revision with Dr. Garcia on 05/29/19. (2) Diabetes mellitus Current Visit: No Status: Acute Code(s): E11.9 - TYPE 2 DIABETES MELLITUS WITHOUT COMPLICATIONS SNOMED Code(s): 65027505 Comment: -Holding home metformin. -Fingersticks ACHS with sliding scale lispro. -Blood sugars ranging from 120's to 200's. (3) Rheumatoid arthritis Current Visit: No Status: Acute Code(s): M06.9 - RHEUMATOID ARTHRITIS, UNSPECIFIED SNOMED Code(s): 19464469 Comment: - holding home CellCept, may resume postoperatively. (4) Depression with anxiety Current Visit: No Status: Acute Code(s): F41.8 - OTHER SPECIFIED ANXIETY DISORDERS SNOMED Code(s): 983065400 Comment: - restart home citalopram (5) Bacterial conjunctivitis of both eyes Current Visit: Yes Status: Acute Code(s): H10.9 - UNSPECIFIED CONJUNCTIVITIS SNOMED Code(s): 293010401 Comment: -Significant thick drainage from oth eyes today. -Continue erythromycin eye ointment. (6) DVT prophylaxis Current Visit: No Status: Acute Code(s): Z29.9 - ENCOUNTER FOR PROPHYLACTIC MEASURES, UNSPECIFIED SNOMED Code(s): 914642505 Comment: - Holding evening dose of lovenox for surgery tomorrow. Will increase lovenox to 40mg BID postoperatively, discussed with VELMA Curry. - No obvious bleeding of concern - US dvt neg despite swollen right leg (7) DNR (do not resuscitate) Current Visit: Yes Status: Acute Status and Disposition: CONDITION: Guarded Disposition: Admitted inpatient to [facility], undergoing surgery tomorrow. Attending: Arabella Leon
--- NOTE | 2019-05-28 09:56 | PN ---
Progress Note - Progress Note Date of Service: 05/28/19 SOAP: Subjective: []Pt seen at bedside. She is comfortable laying in bed. Denies CP, SOB, dizziness, nausea Objective: []Gen: NAD RLE: right leg shortened and rotated. f/e at ankle and MTPs intact. DP2+, sensation intact to light touch distally. 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 Plan: []NWB RLE, bedrest Normal diet today, NPO at midnight DVT prophy: discussed with medicine as she has hx dvt/pe- she will be on Lovenox 40 mg bid, should have dose this morning and hold evening dose tonight as well as tomorrow morning Plan for OR tomorrow with Dr Garcia for revision. Patient and her son are in agreement. Awaiting hardware. Vital Signs Temp 98.7 F 05/28/19 07:35 Pulse 77 05/28/19 07:35 Resp 18 05/28/19 07:43 BP 109/53 05/28/19 07:35 Pulse Ox 96 05/28/19 07:35 Intake & Output 05/27/19 05/28/19 05/28/19 18:59 06:59 18:59 Intake Total 1560 Output Total 0 Balance 1560 Weight 135 lb Intake: IV Fluids 985 LR 985 Oral 575 Output: Urine 0 Other: Estimated Void Large Laboratory Last Values WBC 11.1 10^3/uL (3.5-10.8) H 05/27/19 14:27 RBC 3.28 10^6 /uL (3.70-4.87) L 05/27/19 14:27 Hgb 9.3 g/dL (12.0-16.0) L 05/27/19 14:27 Hct 28 % (35-47) L 05/27/19 14:27 MCV 85 fL (80-97) 05/27/19 14:27 MCH 28 pg (27-31) 05/27/19 14:27 MCHC 33 g/dL (31-36) 05/27/19 14:27 RDW 15 % (10-15) 05/27/19 14:27 Plt Count 368 10^3/uL (150-450) 05/27/19 14:27 MPV 6.9 fL (7.4-10.4) L 05/27/19 14:27 Neut % (Auto) 69.4 % 05/27/19 14:27 Lymph % (Auto) 17.6 % 05/27/19 14:27 [place] % (Auto) 8.0 % 05/27/19 14:27 Eos % (Auto) 3.9 % 05/27/19 14:27 Baso % (Auto) 1.1 % 05/27/19 14:27 Absolute Neuts (auto) 7.7 10^3/ul (1.5-7.7) 05/27/19 14:27 Absolute Lymphs (auto) 2.0 10^3/ul (1.0-4.8) 05/27/19 14:27 Absolute Monos (auto) 0.9 10^3/ul (0-0.8) H 05/27/19 14:27 Absolute Eos (auto) 0.4 10^3/ul (0-0.6) 05/27/19 14:27 Absolute Basos (auto) 0.1 10^3/ul (0-0.2) 05/27/19 14:27 Absolute Nucleated RBC 0.0 10^3/ul 05/27/19 14:27 Nucleated RBC % 0.1 05/27/19 14:27 INR (Anticoag Therapy) 1.03 (0.82-1.09) 05/27/19 14:27 Sodium 136 mmol/L (135-145) 05/27/19 14:27 Potassium 4.2 mmol/L (3.5-5.0) 05/27/19 14:27 Chloride 104 mmol/L (101-111) 05/27/19 14:27 Carbon Dioxide 24 mmol/L (22-32) 05/27/19 14:27 Anion Gap 8 mmol/L (2-11) 05/27/19 14:27 BUN 11 mg/dL (6-24) 05/27/19 14:27 Creatinine 0.42 mg/dL (0.51-0.95) L 05/27/19 14:27 Est GFR ( Amer) 175.2 (>60) 05/27/19 14:27 Est GFR (Non-Af Amer) 144.8 (>60) 05/27/19 14:27 BUN/Creatinine Ratio 26.2 (8-20) H 05/27/19 14:27 Glucose 102 mg/dL (70-100) H 05/27/19 14:27 POC Glucose (mg/dL) 145 mg/dL (70-100) H 05/28/19 07:39 Calcium 8.6 mg/dL (8.6-10.3) 05/27/19 14:27 Blood Type A Positive 05/27/19 14:27 Antibody Screen Negative 05/27/19 14:27
[2019-05-28] MEDS: traMADol TAB* 50 MG PO PRN ×2 (14:46→22:33)
[2019-05-28 16:05] LABS: Urine Appearance Clear; Urine Bilirubin Negative (Negative); Urine Blood Negative (Negative); Urine Color Yellow; Urine Glucose Negative (Negative); Urine Ketones Negative (Negative); Urine Nitrite Negative (Negative); Urine Protein Negative (Negative); Urine Specific Gravity 1.011 (1.010-1.030); Urine Urobilinogen Negative (Negative)
[2019-05-28] MEDS: Senna TAB 8.6 mg* TAB PO SCH (21:27)
[2019-05-29 05:37] LABS: ABS Basophils 0.1 10^3/ul (0-0.2); ABS Eosinophils 0.8 10^3/ul (0-0.6); ABS Lymphocytes 1.6 10^3/ul (1.0-4.8); ABS Monocytes 0.6 10^3/ul (0-0.8); ABS Neutrophils 4.2 10^3/ul (1.5-7.7); Eosinophil % 10.9 %; Hematocrit 27 % (35-47); Hemoglobin 8.9 g/dL (12.0-16.0); Lymphocyte % 22.2 %; Mean Corpuscular HGB Conc 34 g/dL (31-36); Mean Corpuscular Hemoglobin 29 pg (27-31); Mean Corpuscular Volume 85 fL (80-97); Mean Platelet Volume 6.7 fL (7.4-10.4); Platelet Count 419 10^3/uL (150-450); Red Blood Count 3.12 10^6 /uL (3.70-4.87); Red Cell Distribution Width 15 % (10-15); White Blood Count 7.3 10^3/uL (3.5-10.8)
[2019-05-29 05:47] LABS: INR 1.03 (0.82-1.09)
[2019-05-29 05:59] LABS: Anion Gap 3 mmol/L (2-11); BUN/Creatinine Ratio 19.5 (8-20); Blood Urea Nitrogen 8 mg/dL (6-24); CO2 Carbon Dioxide 29 mmol/L (22-32); Calcium 8.2 mg/dL (8.6-10.3); Chloride 102 mmol/L (101-111); EGFR African American 180.2 (>60); EGFR Non-African American 148.9 (>60); Glucose 136 mg/dL (70-100); Potassium 4.3 mmol/L (3.5-5.0); Sodium 134 mmol/L (135-145)
[2019-05-29] MEDS: Docusate CAP* 100 MG PO SCH ×2 (08:39→21:03)
[2019-05-29] MEDS: Vitamin THERAPEUTIC TAB PO SCH (08:39)
[2019-05-29] MEDS: Potassium Chlor TAB* 20 MEQ TAB.ER PO SCH ×2 (08:39→21:03)
[2019-05-29] MEDS: Insulin LISPRO* 1 UNITS UNIT SUBCUT SCH ×3 (08:39→16:18)
[2019-05-29] MEDS: Magnesium Hydroxide LIQ* 30 ML UDC PO SCH ×2 (08:39→21:04)
[2019-05-29] MEDS: Citalopram TAB* 20 MG PO SCH (08:39)
--- NOTE | 2019-05-29 09:01 | PN ---
Subjective Date of Service: 05/29/19 Interval History: Ms. Bermudez presents with recurrent dislocations of the R hip. She continues to have pain rated at 2-3/10 in the R hip. She has not been moving the hip, has not been OOB. She c/o lower abdominal "gas pain" and low back pain. She notes urinary urgency, retention, but denies dysuria, frequency. She is being treated for bacterial conjunctivities b/l, and has no complaints of changes in vision, itching, discharge. 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 She has no other complaints today. Family History: Unchanged from Admission Social History: Unchanged from Admission Past Medical History: Unchanged from Admission Objective Active Medications: Acetaminophen (Tylenol Tab*) 975 mg PO Q8HR PRN PRN Reason: MILD PAIN or TEMP > 100.4 Bisacodyl (Dulcolax Supp*) 10 mg MN DAILY PRN PRN Reason: CONSTIPATION Citalopram Hydrobromide (Celexa Tab*) 20 mg PO DAILY [facility] Last Admin: 05/29/19 08:39 Dose: Not Given Cyclobenzaprine HCl (Flexeril Tab*) 10 mg PO Q6H PRN PRN Reason: SPASMS Dextrose (Dextrose 50% Vial 50 Ml*) 25 ml IV PUSH .FOR FS < 60 - SS PRN PRN Reason: FS < 60 Diphenhydramine HCl (Benadryl Iv*) 25 mg IV Q6H PRN PRN Reason: PRURITIS Diphenhydramine HCl (Benadryl Po*) 25 mg PO Q6H PRN PRN Reason: PRURITIS Docusate Sodium (Colace Cap*) 100 mg PO BID [facility] Last Admin: 05/29/19 08:39 Dose: Not Given Erythromycin (Erythromycin Opth Oint*) 1 applic RIGHT EYE QID [facility] Last Admin: 05/28/19 21:10 Dose: Not Given Fluticasone Propionate (Flonase Nasal Exmore 50mcg*) 1 spray BOTH NARES DAILY [facility] Last Admin: 05/28/19 08:33 Dose: 1 spray Lactated Ringer's (Lactated Ringers 1000 Ml Bag*) 1,000 mls @ 100 mls/hr IV PER RATE [facility] Last Admin: 05/28/19 23:37 Dose: 100 mls/hr Insulin Human Lispro (Humalog*) 0 units SUBCUT ACHS [facility]; Protocol Last Admin: 05/29/19 08:39 Dose: Not Given Lactulose (Lactulose*) 30 ml PO BID PRN PRN Reason: CONSTIPATION Magnesium Hydroxide (Milk Of Magnesia Liq*) 30 ml PO BID [facility] Last Admin: 05/29/19 08:39 Dose: Not Given Magnesium Hydroxide (Milk Of Magnesia Liq*) 30 ml PO Q6H PRN PRN Reason: CONSTIPATION Morphine Sulfate (Morphine Inj (Syringe))*) 2 mg IV Q4H PRN PRN Reason: Pain - Unrelieved Multivitamins (Theragran Tab*) 1 tab PO DAILY [facility] Last Admin: 05/29/19 08:39 Dose: Not Given Ondansetron HCl (Zofran Inj*) 4 mg IV Q6H PRN PRN Reason: NAUSEA Ondansetron HCl (Zofran Odt Tab*) 4 mg PO Q6H PRN PRN Reason: NAUSEA Oxycodone HCl (Roxycodone Tab*) 5 mg PO Q4H PRN PRN Reason: Pain - Breakthrough Potassium Chloride (Klor Con Er Tab*) 20 meq PO BID [facility] Last Admin: 05/29/19 08:39 Dose: Not Given Senna (Senokot 8.6 Mg Tab*) 1 tab PO BEDTIME [facility] Last Admin: 05/28/19 21:27 Dose: 1 tab Tramadol HCl (Ultram*) 50 mg PO Q6H PRN PRN Reason: PAIN - MODERATE Last Admin: 05/28/19 22:33 Dose: 50 mg Vital Signs: Temp Pulse Resp BP Pulse Ox 97 F 80 16 112/52 97 05/29/19 08:24 05/29/19 08:24 05/29/19 08:24 05/29/19 08:24 05/29/19 08:24 Oxygen Devices in Use Now: None Appearance: Ms. Bermudez is an older, average weight white woman who is laying in bed in bed on her back; SCDs in place. She appears comfortable, in no acute distress. Pleasant, cooperative. Eyes: No Scleral Icterus, PERRLA, - - Upper and lower lids of R eye appear to be fused laterally. No conjunctival injection, no drainage or dischage noted b/ l. Ears/Nose/Mouth/Throat: NL Teeth, Lips, Gums, Clear Oropharnyx, Mucous Membranes Moist Neck: NL Appearance and Movements; NL JVP, Trachea Midline Respiratory: Symmetrical Chest Expansion and Respiratory Effort, Clear to Auscultation Cardiovascular: NL Sounds; No Murmurs; No JVD, RRR, No Edema Abdominal: No Hepatosplenomegaly, - - Mild abdominal distention; BS presents in all quadrants; mildly tender to palpation in suprapubic area, LLQ, RLQ; nontender elsewhere; no CVA tenderness. Extremities: No Edema, No Clubbing, Cyanosis Neurological: Alert and Oriented x 3, NL Sensation Result Diagrams: 05/29/19 05:18 05/29/19 05:18 Microbiology and Other Data: Microbiology 05/27/19 14:56 Nasal Screen MRSA (PCR) - Final Nasal Mrsa Not Detected Assess/Plan/Problems-Billing Assessment: This is an 79 year old female with a PMH significant for DM, RA, and DVT/PE who was admitted on 05/27/19 for right hip dislocation. Had a right total hip revision on 05/18/19. Dislocated likely due to poor muscle tone, not for lack of following hip precautions. - Patient Problems (1) Hip dislocation, right Comment: -recurrent R hip dislocation s/p revision contrained liner placement and femoral head exchange done on 05/18 -plan for another revision with Dr. Garcia 05/29/19 -in meantime, continue bedrest/NWB RLE -further management per ortho team (2) Anemia Comment: -mild anemia since revision 05/18 -likely related to surgery -add on iron studies, B12, folate -continue to monitor, especially in setting of planned surgical intervention today (3) Urinary urgency Comment: -c/o urinary urgency, retention -UA 05/28 WNL, negative for LE, nitrates, bacteria -PVR bladder scan ordered; call provider if > 250cc -continue to monitor for resolution (4) Bacterial conjunctivitis of both eyes Comment: -b/l eyes without conjunctival injection, drainage, discharge this morning -continue erythromycin eye ointment (5) Diabetes mellitus Comment: -BS under moderate control, <200 -holding home metformin -fingersticks ACHS with sliding scale lispro (6) Rheumatoid arthritis Comment: -holding home CellCept -may resume postoperatively (7) Depression with anxiety Comment: -continue home citalopram (8) DVT prophylaxis Comment: -h/o DVT/PE -05/28 p.m. dose, 05/29 a.m. dose held -restart lovenox at 40 BID at ortho's discretion (9) DNR (do not resuscitate) Status and Disposition: CONDITION: Guarded Disposition: Admitted inpatient to [facility], undergoing surgery tomorrow.
[2019-05-29 09:39] LABS: % Iron Saturation 16 % (15-55); Iron 45 ug/dL (50-212); Total Iron Binding Capacity 276 mcg/dL (250-450); Transferrin 197 mg/dL (203-362)
[2019-05-29] MEDS: Lactated Ringers 1000 ML Bag* 1,000 ML IV SCH ×2 (09:51→20:35)
[2019-05-29] MEDS: Fluticasone NASAL SPRAY 50MCG* 16 gm SPRAY BTL BOTH NARES SCH (09:51)
[2019-05-29 10:00] LABS: Ferritin 82.7 ng/mL (11-307)
[2019-05-29 10:04] LABS: Folate 14.09 ng/mL (>3.99)
[2019-05-29] MEDS: Erythromycin OPTH OINT* APPLIC OINT RIGHT EYE SCH ×4 (10:46→21:10)
[2019-05-29] MEDS ORDERED: Bisacodyl SUPP* 10 MG SUPP PR PRN (14:26)
[2019-05-29] MEDS ORDERED: ceFAZolin 2 GM in NS PREMIX(*) 2 GM/100 ML BAG IVPB ONE (15:29)
[2019-05-29] MEDS ORDERED: Dexamethasone IV* 4 MG/ML 1 ML (4 MG) ONE (15:58)
[2019-05-29] MEDS ORDERED: Famotidine IV* 10 MG/ML 2 ML (20 mg) ONE (15:58)
[2019-05-29] MEDS ORDERED: KETAMINE HCL* 50 MG/ML 10 ML VIAL ONE (16:11)
[2019-05-29] MEDS ORDERED: Propofol* 10 MG/ML 20 ML BTL ONE (16:12)
[2019-05-29] MEDS ORDERED: Lidocaine 2% PF * 5 ML VIAL ONE (16:12)
[2019-05-29] MEDS ORDERED: ROPIVACAINE 5 MG/ML 30 ML BTL (0.5%) ONE (16:20)
[2019-05-29] MEDS ORDERED: Rocuronium* 10 MG/ML VIAL ONE (16:30)
[2019-05-29] MEDS ORDERED: fentaNYL* 50 MCG/ML 2 ML VIAL (100 MCG VIAL) ONE (17:21)
[2019-05-29] MEDS ORDERED: Ondansetron INJ* 2 MG/ML VIAL ONE (17:52)
[2019-05-29] MEDS ORDERED: Neostigmine Methylsulfate* 3 MG/3 ML SYRINGE ONE (17:59)
[2019-05-29] MEDS ORDERED: Glycopyrrolate IV* 0.2 MG/ML 1 ML VIAL ONE (17:59)
[2019-05-29] MEDS ORDERED: DiMENhydriNATE IV* 50 MG/ML VIAL IV PUSH PRN (18:16)
[2019-05-29] MEDS ORDERED: fentaNYL* 50 MCG/ML 2 ML VIAL (100 MCG VIAL) IV PRN (18:16)
[2019-05-29] MEDS ORDERED: Naloxone* 0.4 MG/ML 1 ML VIAL IV PRN (18:16)
[2019-05-29 19:36] LABS: Hematocrit 25 % (35-47); Hemoglobin 7.9 g/dL (12.0-16.0)
[2019-05-29] MEDS: Cyclobenzaprine TAB* 10 MG PO PRN (21:03)
[2019-05-29] MEDS: Senna TAB 8.6 mg* TAB PO SCH (21:04)
[2019-05-29] MEDS: traMADol TAB* 50 MG PO PRN (22:48)
--- NOTE | 2019-05-29 23:04 | OP ---
DATE OF OPERATION: 05/29/19 - ROOM #350 DATE OF : 36 SURGEON: Leah Garcia MD EMBEDDED FIRMWARE DEVELOPER: VELMA Bravo. ANESTHESIOLOGIST: Dr. Urbina. ANESTHESIA: General. PRE-OP DIAGNOSIS: Right hip recurrent instability with a constrained liner hardware failure. POST-OP DIAGNOSIS: Right hip recurrent instability with a constrained liner hardware failure with malpositioned acetabular component. OPERATIVE PROCEDURE: Revision right total hip arthroplasty - acetabular revision with femoral head exchange. HARDWARE USED: This is Lucy revision hardware for the cup. A Trident 2 Tritanium multihole acetabular shell 56S with 3 screws, length 15 mm each. A cementless MDM liner 46S head was used. For the head, a 28 plus 0 offset, D40 femoral head and a alevism MDM 28/52/46S X3 insert. BRIEF HISTORY/INDICATION: Ms. Bermudez is an 79-year-old female with an initial right total hip arthroplasty in [address] Topete. She suffered with recurrent instability and I saw her in 2013. I revised her to constrained liner and she did well for almost 6 years. On 05/16/19, she dislocated the constrained liner and there was hardware failure. She was given different options and because of her age and medical comorbidities, she wished to have replacement of the constrained liner. This was performed on 05/18/19 without complication. Unfortunately, due to the patient's dementia, she has not been following hip precautions well. She dislocated again and presented to the emergency room on 05/27/19 with failure of the constrained liner and hip dislocation once again. I recommended a [place] procedure to the patient and her son. They wished to have revision of the acetabular cup to a better position. It was noted there was retroversion of the acetabular component likely leading to the problems with instability. Of course, I respected their wishes and planned for revision right total hip arthroplasty. Informed consent was obtained from the patient and her son. They understood the risk of surgery included, but were not limited to bleeding, infection, damage to nearby structures, continued pain, need for further surgery, intraoperative fracture, hardware failure, continued dislocation, leg length discrepancy, stroke, heart attack, blood clot and . She wished to proceed. INTRAOPERATIVE FINDINGS: Intraoperatively, the patient had a posterior superior dislocation. She had a large hematoma. She had the retroversion of the acetabulum. Femoral stem and acetabular components were intact. Femoral stem had appropriate anteversion on the neck. The patient was noted to have significant osteopenia. She was noted to have an internal rotation contracture of muscles at the hip. DESCRIPTION OF PROCEDURE: Ms. Bermudez was identified in the preanesthesia unit. Her right lower extremity was marked as the correct operative site. Informed consent was signed and placed in the chart. The patient was taken to the operating room and placed under anesthesia without difficulty. She was placed in the left lateral decubitus position on the pegboard. All bony prominences were well padded. Right lower extremity was prepped and draped in the usual sterile fashion. Preop time- out was made to correctly identify the patient side and site. Appropriate perioperative antibiotics were given within 1 hour of incision. The patient's prior incision was opened with a 10 blade. Electrocautery was used to dissect down to the lateral fascial layer. The lateral fascial layer was incised using a 10 blade and any prior sutures that were visible were carefully removed. Large hematoma was encountered and this was removed with irrigation. The dislocated femoral component was presented after Charnley retractor placement. The constrained liner and head were carefully removed using a bone tamp. There was no damage to the trunnion. Femoral stem was evaluated. There was appropriate anteversion. There was no obvious loosening of the stem. The femur was retracted anteriorly. Attention was turned to explanting the acetabulum. The acetabular component was noted to be retroverted. Two screws were removed from the acetabulum using the appropriate screwdriver. The Malik acetabular extractor set was used. A 36 liner with a 36 and 54 curved osteotome extractor set was used. Carefully, the osteotome was taken around the edge of the acetabulum. This was performed meticulously attempting to lose as little bone as possible. Once the cup was visibly lose, the cup was carefully removed. It was noted that there was minimal bone loss. The patient' s acetabulum was shallow at this point with osteopenic bone. Medially, the medial wall of the acetabulum was palpated. Careful reaming was then performed up to a size 56. The 55 trial had satisfactory fit. The 56S Trident Tritanium multihole acetabular shell was chosen. This was impacted into the acetabulum with the appropriate amount of abduction and anteversion. Three screws were placed for extra stability. An MDM cementless liner was chosen, which was a 46S MDM cementless liner. The was impacted into the acetabulum without difficulty. Different length necks were then trialed. The plus-0 neck had appropriate length. There was good soft tissue tension. The patient had an abnormal amount of internal contracture at the hip. The hip was taken through a range of motion. The hip was stable. When I attempted to add a plus 4 to the neck length, the reduction was made quite difficult. Therefore, final implant chosen was a Helleroy LFIT metal femoral head 28 plus 0 with a alevism MDM X3 insert, 20/52/46S. The head and insert were prepared. These were impacted on to the femoral neck without difficulty. The hip was reduced. The hip was taken through a range of motion and was stable in all positions. The hip was copiously irrigated with sterile saline. The posterior capsular tissue was reapproximated to the posterolateral femur through 2 trochanteric drill holes using #5 Ethibond. The lateral fascial layer was closed using interrupted #1 Vicryls. The rest of the incision was closed in a layered fashion using 0 and 2-0 Vicryls. The skin was closed using running 3-0 nylon suture. The patient's incision was overed with Xeroform, 4x4s, and paper tape. The patient's anesthesia was reversed without difficulty. She was taken to the PACU in stable condition. Intended weightbearing will be weightbearing as tolerated. Intended DVT prophylaxis will be Lovenox. [id number]/[facility] #: [id number] [facility]OMPSON HOSPITALMargot
[2019-05-30] MEDS: ceFAZolin 1 GM* X 3 DOSES POST-OP Q8H (AddVan) IVPB SCH ×6 (01:19→17:01)
[2019-05-30 05:21] LABS: ABS Monocytes 0.8 10^3/ul (0-0.8); ABS Neutrophils 10.2 10^3/ul (1.5-7.7); Hematocrit 24 % (35-47); Hemoglobin 8.1 g/dL (12.0-16.0); Lymphocyte % 15.4 %; Mean Corpuscular HGB Conc 33 g/dL (31-36); Mean Corpuscular Hemoglobin 28 pg (27-31); Mean Corpuscular Volume 85 fL (80-97); Mean Platelet Volume 6.4 fL (7.4-10.4); Platelet Count 450 10^3/uL (150-450); Red Blood Count 2.89 10^6 /uL (3.70-4.87); Red Cell Distribution Width 15 % (10-15); White Blood Count 13.1 10^3/uL (3.5-10.8)
[2019-05-30 05:37] LABS: BUN/Creatinine Ratio 26.8 (8-20); Calcium 7.7 mg/dL (8.6-10.3); EGFR African American 180.2 (>60); EGFR Non-African American 148.9 (>60); Potassium 4.6 mmol/L (3.5-5.0)
[2019-05-30] MEDS: Lactated Ringers 1000 ML Bag* 1,000 ML IV SCH (06:19)
--- NOTE | 2019-05-30 08:25 | PN ---
Progress Note - Progress Note Date of Service: 05/30/19 SOAP: Subjective: []Pt seen at bedside. Her right hip pain is well controlled. She feels mildly lightheaded this morning. Denies CP, SOB, nausea. Objective: []Gen: NAD RLE: Dressing CDI, thigh is soft, df/pf intact, DP2+, sensation intact to light touch throughout RLE. Calves supple and nontender without erythema, edema or palpable cords Assessment: []pod 1 sp Revision right total hip arthroplasty - acetabular revision with femoral head exchange. Plan: [] PT/OT Toe touch weight bearing Knee immobilizer when out of bed at all times Abductor pillow when in bed at all times posterior hip precautions Keflex x 1 week once IV abx ancef 3 doses complete 1 unit prbc ordered for operative bloodloss with lightheadedness and tachycardia. PMRU unable to offer a bed, son agrees for patient to return to [facility] when medically ready Vital Signs Temp 98.7 F 05/30/19 09:30 Pulse 90 05/30/19 09:30 Resp 16 05/30/19 09:30 BP 117/53 05/30/19 09:30 Pulse Ox 96 05/30/19 09:30 Intake & Output 05/29/19 05/30/19 05/30/19 18:59 06:59 18:59 Intake Total 1506 1713 55 Output Total 181 950 Balance 1325 763 55 Intake: IV Fluids 1506 1538 LR 1506 1538 IVPB 55 55 ABX - CEFAZOLIN 55 55 Oral 0 120 Output: Urine 0 0 [place] 950 Post Void Residual 181 Other: Estimated Void Large # Voids 1 Laboratory Last Values WBC 13.1 10^3/uL (3.5-10.8) H 05/30/19 05:09 RBC 2.89 10^6 /uL (3.70-4.87) L 05/30/19 05:09 Hgb 8.1 g/dL (12.0-16.0) L 05/30/19 05:09 Hct 24 % (35-47) L 05/30/19 05:09 MCV 85 fL (80-97) 05/30/19 05:09 MCH 28 pg (27-31) 05/30/19 05:09 MCHC 33 g/dL (31-36) 05/30/19 05:09 RDW 15 % (10-15) 05/30/19 05:09 Plt Count 450 10^3/uL (150-450) 05/30/19 05:09 MPV 6.4 fL (7.4-10.4) L 05/30/19 05:09 Neut % (Auto) 78.1 % 05/30/19 05:09 Lymph % (Auto) 15.4 % 05/30/19 05:09 [place] % (Auto) 6.2 % 05/30/19 05:09 Eos % (Auto) 0.0 % 05/30/19 05:09 Baso % (Auto) 0.3 % 05/30/19 05:09 Absolute Neuts (auto) 10.2 10^3/ul (1.5-7.7) H 05/30/19 05:09 Absolute Lymphs (auto) 2.0 10^3/ul (1.0-4.8) 05/30/19 05:09 Absolute Monos (auto) 0.8 10^3/ul (0-0.8) 05/30/19 05:09 Absolute Eos (auto) 0.0 10^3/ul (0-0.6) 05/30/19 05:09 Absolute Basos (auto) 0.0 10^3/ul (0-0.2) 05/30/19 05:09 Absolute Nucleated RBC 0.0 10^3/ul 05/30/19 05:09 Nucleated RBC % 0.0 05/30/19 05:09 INR (Anticoag Therapy) 1.03 (0.82-1.09) 05/29/19 05:18 Sodium 132 mmol/L (135-145) L 05/30/19 05:09 Potassium 4.6 mmol/L (3.5-5.0) 05/30/19 05:09 Chloride 101 mmol/L (101-111) 05/30/19 05:09 Carbon Dioxide 26 mmol/L (22-32) 05/30/19 05:09 Anion Gap 5 mmol/L (2-11) 05/30/19 05:09 BUN 11 mg/dL (6-24) 05/30/19 05:09 Creatinine 0.41 mg/dL (0.51-0.95) L 05/30/19 05:09 Est GFR ( Amer) 180.2 (>60) 05/30/19 05:09 Est GFR (Non-Af Amer) 148.9 (>60) 05/30/19 05:09 BUN/Creatinine Ratio 26.8 (8-20) H 05/30/19 05:09 Glucose 174 mg/dL (70-100) H 05/30/19 05:09 POC Glucose (mg/dL) 145 mg/dL (70-100) H 05/29/19 13:21 Calcium 7.7 mg/dL (8.6-10.3) L 05/30/19 05:09 Iron 45 ug/dL (50-212) L 05/29/19 05:18 TIBC 276 mcg/dL (250-450) 05/29/19 05:18 % Saturation 16 % (15-55) 05/29/19 05:18 Unsat Iron Binding < 261 ug/dL 05/29/19 05:18 Transferrin 197 mg/dL (203-362) L 05/29/19 05:18 Ferritin 82.7 ng/mL (11-307) 05/29/19 05:18 Vitamin B12 612 pg/mL (180-914) 05/29/19 05:18 Folate 14.09 ng/mL (>3.99) 05/29/19 05:18 Urine Color Yellow 05/28/19 15:35 Urine Appearance Clear 05/28/19 15:35 Urine pH 8.0 (5-9) 05/28/19 15:35 Ur Specific [place] 1.011 (1.010-1.030) 05/28/19 15:35 Urine Protein Negative (Negative) 05/28/19 15:35 Urine Ketones Negative (Negative) 05/28/19 15:35 Urine Blood Negative (Negative) 05/28/19 15:35 Urine Nitrate Negative (Negative) 05/28/19 15:35 Urine Bilirubin Negative (Negative) 05/28/19 15:35 Urine Urobilinogen Negative (Negative) 05/28/19 15:35 Ur Leukocyte Esterase Negative (Negative) 05/28/19 15:35 Urine Glucose Negative (Negative) 05/28/19 15:35 Blood Type A Positive 05/27/19 14:27 Antibody Screen Negative 05/27/19 14:27 Crossmatch See Detail 05/27/19 14:27
[2019-05-30] MEDS ORDERED: Influenza VAC *QUAD* 2019-20* 0.5 ML SYRINGE IM ONE ×2 (09:00→10:15)
[2019-05-30] MEDS: Docusate CAP* 100 MG PO SCH ×2 (10:21→20:56)
[2019-05-30] MEDS: Potassium Chlor TAB* 20 MEQ TAB.ER PO SCH ×2 (10:21→20:55)
[2019-05-30] MEDS: Citalopram TAB* 20 MG PO SCH (10:21)
[2019-05-30] MEDS: Vitamin THERAPEUTIC TAB PO SCH (10:22)
[2019-05-30] MEDS: Magnesium Hydroxide LIQ* 30 ML UDC PO SCH ×2 (10:22→20:59)
[2019-05-30] MEDS: Fluticasone NASAL SPRAY 50MCG* 16 gm SPRAY BTL BOTH NARES SCH (10:22)
[2019-05-30] MEDS: Enoxaparin(*) 30 MG/0.3 ML SYR SUBCUT SCH ×2 (10:26→20:59)
[2019-05-30] MEDS: Erythromycin OPTH OINT* APPLIC OINT RIGHT EYE SCH ×4 (10:26→21:05)
[2019-05-30] MEDS: Acetaminophen TAB* 325 MG PO PRN ×2 (10:27→20:57)
[2019-05-30 13:46] LABS: Hematocrit 29 % (35-47); Hemoglobin 9.7 g/dL (12.0-16.0)
--- NOTE | 2019-05-30 17:18 | PN ---
Subjective Date of Service: 05/30/19 Interval History: Patient states she has right hip pain but it is well controlled with pain medication. Denies chest pain, difficulty breathing, fever/chills. Family History: Unchanged from Admission Social History: Unchanged from Admission Past Medical History: Unchanged from Admission Objective Active Medications: Acetaminophen (Tylenol Tab*) 975 mg PO Q8HR PRN PRN Reason: MILD PAIN or TEMP > 100.4 Last Admin: 05/30/19 10:27 Dose: 975 mg Bisacodyl (Dulcolax Supp*) 10 mg VT DAILY PRN PRN Reason: CONSTIPATION Cephalexin HCl (Keflex Cap*) 500 mg PO QID [facility] Stop: 06/07/19 00:59 Citalopram Hydrobromide (Celexa Tab*) 20 mg PO DAILY [facility] Last Admin: 05/30/19 10:21 Dose: 20 mg Cyclobenzaprine HCl (Flexeril Tab*) 10 mg PO Q6H PRN PRN Reason: SPASMS Last Admin: 05/29/19 21:03 Dose: 10 mg Dextrose (Dextrose 50% Vial 50 Ml*) 25 ml IV PUSH .FOR FS < 60 - SS PRN PRN Reason: FS < 60 Diphenhydramine HCl (Benadryl Iv*) 25 mg IV Q6H PRN PRN Reason: PRURITIS Diphenhydramine HCl (Benadryl Po*) 25 mg PO Q6H PRN PRN Reason: PRURITIS Docusate Sodium (Colace Cap*) 100 mg PO BID [facility] Last Admin: 05/30/19 10:21 Dose: 100 mg Enoxaparin Sodium (Lovenox(*)) 30 mg SUBCUT BID [facility] Last Admin: 05/30/19 10:26 Dose: 30 mg Erythromycin (Erythromycin Opth Oint*) 1 applic RIGHT EYE QID [facility] Last Admin: 05/30/19 15:32 Dose: Not Given Fluticasone Propionate (Flonase Nasal [place] 50mcg*) 1 spray BOTH NARES DAILY [facility] Last Admin: 05/30/19 10:22 Dose: 1 spray Cefazolin Sodium 1 gm/ Sodium (Chloride) 50 mls @ 200 mls/hr IVPB Q8H [facility] Stop: 05/30/19 17:14 Last Admin: 05/30/19 17:01 Dose: 200 mls/hr Lactulose (Lactulose*) 30 ml PO BID PRN PRN Reason: CONSTIPATION Magnesium Hydroxide (Milk Of Magnesia Liq*) 30 ml PO BID [facility] Last Admin: 05/30/19 10:22 Dose: 30 ml Magnesium Hydroxide (Milk Of Magnesia Liq*) 30 ml PO Q6H PRN PRN Reason: CONSTIPATION Morphine Sulfate (Morphine Inj (Syringe))*) 2 mg IV Q4H PRN PRN Reason: Pain - Unrelieved Multivitamins (Theragran Tab*) 1 tab PO DAILY [facility] Last Admin: 05/30/19 10:22 Dose: 1 tab Mycophenolate Mofetil (Cellcept Tab(*)) 1,000 mg PO BID [facility] Ondansetron HCl (Zofran Inj*) 4 mg IV Q6H PRN PRN Reason: NAUSEA Ondansetron HCl (Zofran Odt Tab*) 4 mg PO Q6H PRN PRN Reason: NAUSEA Oxycodone HCl (Roxycodone Tab*) 5 mg PO Q4H PRN PRN Reason: Pain - Breakthrough Potassium Chloride (Klor Con Er Tab*) 20 meq PO BID [facility] Last Admin: 05/30/19 10:21 Dose: 20 meq Senna (Senokot 8.6 Mg Tab*) 1 tab PO BEDTIME [facility] Last Admin: 05/29/19 21:04 Dose: 1 tab Tramadol HCl (Ultram*) 50 mg PO Q6H PRN PRN Reason: PAIN - MODERATE Last Admin: 05/29/19 22:48 Dose: 50 mg Vital Signs - 8 hr 05/30/19 05/30/19 05/30/19 09:15 09:30 11:30 Temperature 98.8 F 98.7 F 97.6 F Pulse Rate 87 90 87 Respiratory 16 16 16 Rate Blood Pressure 110/52 117/53 111/43 (mmHg) O2 Sat by Pulse 95 96 98 Oximetry 05/30/19 05/30/19 14:58 16:00 Temperature 98.5 F Pulse Rate 82 Respiratory 16 Rate Blood Pressure 120/44 (mmHg) O2 Sat by Pulse 95 95 Oximetry Oxygen Devices in Use Now: None Appearance: Thin, elderly white female, laying upright in bed, in NAD Eyes: No Scleral Icterus, - - PERRL Ears/Nose/Mouth/Throat: Mucous Membranes Moist Neck: - - neck is supple Respiratory: Symmetrical Chest Expansion and Respiratory Effort, Clear to Auscultation Cardiovascular: NL Sounds; No Murmurs; No JVD, RRR Abdominal: - - abd soft, nontender, nondistended Extremities: No Edema, No Clubbing, Cyanosis Skin: No Rash or Ulcers Neurological: Alert and Oriented x 3, NL Muscle Strength and Tone Result Diagrams: 05/30/19 13:02 05/30/19 05:09 Microbiology and Other Data: Microbiology 05/27/19 14:56 Nasal Screen MRSA (PCR) - Final Nasal Mrsa Not Detected Assess/Plan/Problems-Billing Assessment: This is an 79 year old female with a PMH significant for DM, RA, and DVT/PE who was admitted on 05/27/19 for right hip dislocation. Had a right total hip revision on 05/18/19. Dislocated likely due to poor muscle tone, not for lack of following hip precautions. - Patient Problems (1) Hip dislocation, right Current Visit: No Status: Acute Code(s): S73.004A - UNSPECIFIED DISLOCATION OF RIGHT HIP, INITIAL ENCOUNTER SNOMED Code(s): 218863376 Comment: -recurrent R hip dislocation s/p revision contrained liner placement and femoral head exchange done on 05/18 -s/p revision with Dr. Garcia 05/29/19 -further management per ortho team -continue pain mgmt (2) Anemia Current Visit: Yes Status: Acute Code(s): D64.9 - ANEMIA, UNSPECIFIED SNOMED Code(s): 124155146 Comment: -mild anemia since revision 05/18 -likely related to surgery and lower today due to dilution with IVF -H&H stable today and patient not symptomatic; orthopedic team gave 1 unit PRBCs (3) Bacterial conjunctivitis of both eyes Current Visit: Yes Status: Acute Code(s): H10.9 - UNSPECIFIED CONJUNCTIVITIS SNOMED Code(s): 847184162 Comment: -b/l eyes without conjunctival injection, drainage, discharge this morning -continue erythromycin eye ointment (4) Urinary urgency Current Visit: Yes Status: Acute Comment: -c/o urinary urgency, retention -UA 05/28 WNL, negative for LE, nitrates, bacteria -PVR bladder scan ordered; call provider if > 250cc -continue to monitor for resolution (5) Diabetes mellitus Current Visit: No Status: Acute Code(s): E11.9 - TYPE 2 DIABETES MELLITUS WITHOUT COMPLICATIONS SNOMED Code(s): 30074379 Comment: -A1c is 7.4 in March indicating overall good glycemic control -holding home metformin -continue lispro SS (6) Depression with anxiety Current Visit: No Status: Acute Code(s): F41.8 - OTHER SPECIFIED ANXIETY DISORDERS SNOMED Code(s): 252548585 Comment: -continue home citalopram (7) Rheumatoid arthritis Current Visit: No Status: Acute Code(s): M06.9 - RHEUMATOID ARTHRITIS, UNSPECIFIED SNOMED Code(s): 65772336 Comment: -restarting CellCept (8) DNR (do not resuscitate) Current Visit: Yes Status: Acute (9) DVT prophylaxis Current Visit: No Status: Acute Code(s): Z29.9 - ENCOUNTER FOR PROPHYLACTIC MEASURES, UNSPECIFIED SNOMED Code(s): 154348318 Comment: -lovenox Status and Disposition: CONDITION: Guarded Disposition: Admitted inpatient to [facility], undergoing surgery tomorrow.
[2019-05-30] MEDS: Senna TAB 8.6 mg* TAB PO SCH (20:56)
[2019-05-30] MEDS: Cyclobenzaprine TAB* 10 MG PO PRN (20:56)
[2019-05-30] MEDS: Mycophenolate Mofetil TAB(*) 500 MG PO SCH (21:04)
[2019-05-31] MEDS: Cephalexin CAP* 500 MG PO SCH ×2 (01:19→09:15)
[2019-05-31 05:44] LABS: ABS Basophils 0.1 10^3/ul (0-0.2); ABS Eosinophils 0.3 10^3/ul (0-0.6); ABS Lymphocytes 1.6 10^3/ul (1.0-4.8); ABS Monocytes 0.8 10^3/ul (0-0.8); ABS Neutrophils 8.6 10^3/ul (1.5-7.7); Hematocrit 28 % (35-47); Hemoglobin 9.5 g/dL (12.0-16.0); Mean Corpuscular HGB Conc 34 g/dL (31-36); Mean Corpuscular Hemoglobin 29 pg (27-31); Mean Corpuscular Volume 86 fL (80-97); Mean Platelet Volume 6.5 fL (7.4-10.4); Platelet Count 447 10^3/uL (150-450); Red Cell Distribution Width 16 % (10-15); White Blood Count 11.4 10^3/uL (3.5-10.8)
[2019-05-31 06:01] LABS: BUN/Creatinine Ratio 30.6 (8-20); Calcium 7.8 mg/dL (8.6-10.3); EGFR African American 146.7 (>60); EGFR Non-African American 121.2 (>60); Potassium 4.4 mmol/L (3.5-5.0)
[2019-05-31] MEDS ORDERED: Insulin LISPRO* 1 UNITS UNIT SUBCUT SCH (07:30)
[2019-05-31] MEDS: Acetaminophen TAB* 325 MG PO PRN (09:15)
[2019-05-31] MEDS: Docusate CAP* 100 MG PO SCH (09:15)
[2019-05-31] MEDS: Vitamin THERAPEUTIC TAB PO SCH (09:16)
[2019-05-31] MEDS: Citalopram TAB* 20 MG PO SCH (09:16)
[2019-05-31] MEDS: Potassium Chlor TAB* 20 MEQ TAB.ER PO SCH (09:16)
[2019-05-31] MEDS: Erythromycin OPTH OINT* APPLIC OINT RIGHT EYE SCH (09:17)
[2019-05-31] MEDS: Enoxaparin(*) 30 MG/0.3 ML SYR SUBCUT SCH (09:17)
[2019-05-31] MEDS: Magnesium Hydroxide LIQ* 30 ML UDC PO SCH (09:17)
[2019-05-31] MEDS: Fluticasone NASAL SPRAY 50MCG* 16 gm SPRAY BTL BOTH NARES SCH (09:17)
[2019-05-31] MEDS: Mycophenolate Mofetil TAB(*) 500 MG PO SCH (09:19)
[2019-05-31] MEDS ORDERED: Calcium Gluconate INJ* 1 GM in NS 0.9% 50 ML* 50 ML IVPB ONE (10:00)
--- NOTE | 2019-05-31 11:23 | DS ---
Orthopedic Discharge Summary - Discharge Summary Date of Admission:05/27/19 Date of Discharge: 05/29/2016 Date of Surgery: 05/31/2019 Attending Orthopedic Provider: Dr. Garcia Pre-operative Diagnosis: Right hip dislocation s/p right total hip revision. Operative Procedure: Right total hip revision Disposition of Patient: [facility] Condition of Patient: Good History: LEVI IZAGUIRRE is a 79 year old F who was admitted to the hospital after sustaining a right total hip dislocation. Hospital Course: LEVI was admitted to [facility] on 05/27/19. Patient underwent a revision right total hip arthroplasty without complication followed by a brief recovery in PACU and transfer to the Short Stay Surgical Unit in stable condition on 05/29/2019. Our hospitalist service, physical therapy and occupational therapy also participated in this patients care. Post- op day 1: patient was alert and in no acute distress. Dressing was clean, dry and intact. Operative extremity dorsiflexion and plantarflexion intact, sensation intact to light touch distally, DP2+. Post-op day two: dressing was changed, incision was clean, dry and intact. Patient was deemed to be medically and orthopedically stable for discharge. Physical therapy goals were met. Home Medications Medication Instructions Recorded Confirmed Type Citalopram TAB* [Celexa TAB*] 20 mg PO DAILY 02/23/13 05/27/19 History Mometasone NASAL (NF) [Nasonex 1 spray PO DAILY 02/23/13 05/27/19 History (NF)] Mycophenolate Mofetil TAB(*) 1,000 mg PO BID 02/23/13 05/27/19 History [Cellcept TAB(*)] Erythromycin OPTH OINT* 1 applic RIGHT EYE QID 08/08/17 05/27/19 History [Erythromycin 0.5% OPTH OINT*] Calcium Carbonate/Vitamin D3 1 each PO DAILY 12/28/17 05/27/19 History [Calcium 500 + Vit D Caplet] metFORMIN* [Glucophage 500 MG TAB 1,000 mg PO BID 12/28/17 05/27/19 History *] Acetaminophen TAB* [Tylenol TAB*] 975 mg PO Q6H PRN #60 tab 05/22/19 05/27/19 Rx Amoxicillin/Clavulanate TAB* 875 mg PO BID #4 tab 05/22/19 05/27/19 Rx [Augmentin TAB 875*] Aspirin TAB* [Aspirin 325 MG TAB*] 325 mg PO DAILY #30 tab 05/22/19 05/27/19 Rx Potassium Chlor TAB* [Potassium 20 meq PO BID tab.er 05/22/19 05/27/19 Rx Chlor TAB 20 MEQ*] Enoxaparin(*) [Lovenox(*)] 30 mg SUBCUT BID 05/27/19 05/27/19 History Discharge Instructions following Orthopedic Surgery: Activity: * Weight Bearing: Toe touch * Continue physical therapy and occupational therapy exercises as shown * Knee immobilizer on at all times when out of bed * Abductor pillow when in bed at all times Hip replacements: Continue Hip Precautions- do not cross legs or bend greater than 90 degrees/squat Wound care: * OK to shower on post-op day 3, no bathing, swimming, or submerging wound. * Use gentle soap, pat dry. Cover with gauze, BRANDON wrap or tape. * Visiting home nurse to do wound checks. Call Orthopedic office for: * Increased drainage * Redness * Increased pain * Fever Go to ER with shortness of breath or chest pain. Diet: * Regular diet * Increase fluids and fiber to prevent constipation. * Continue to use stool softeners, call office if no bowel motion within 48 hours. Medications See Home Medication List in your packet for medications that you should take after discharge. DVT Prophylaxis: Lovenox Dosing: [40] mg twice a day Pain Control: Percocet Dosin/325 mg 1-2 tabs by mouth every 4-6 hours as needed for pain. Maximum of 10 tabs per day. Celebrex Dosin mg twice a day Please note that Percocet contains Tylenol (acetaminophen). Maximum daily dose of Tylenol is 4000 mg from all sources. ANTIBIOTICS: Keflex 500mg three times a day x 1 week Antibiotics are required prior to any dental work. Resume Metformin FOLLOW UP: Follow up with [[facility]] Within 10-14 days, call for appointment Please call our office with any questions or concerns ([phone])
[2019-05-31 11:48] VITALS: BP 103/45
== END 2019-05-31 13:10 | DRG 468 ==
LOC: ED 11:48 → SSU 14:26
PROVIDERS: ADMIT Orthopaedic Surgery; ATTEND Orthopaedic Surgery Adult Reconstructive Orthopaedic Surgery
PROC: 0SP90JZ Removal of Synthetic Substitute from Right Hip Joint, Open Approach (ICD-10-PCS; 2019-05-29)
PROC: 0SR901A Replacement of Right Hip Joint with Metal Synthetic Substitute, Uncemented, Open Approach (ICD-10-PCS; principal; 2019-05-29 16:00)
PROC: 30233N1 Transfusion of Nonautologous Red Blood Cells into Peripheral Vein, Percutaneous Approach (ICD-10-PCS; 2019-05-30)
DX: T84.020A Dislocation of internal right hip prosthesis, initial encounter (principal); J45.909 Unspecified asthma, uncomplicated; M06.9 Rheumatoid arthritis, unspecified; E11.36 Type 2 diabetes mellitus with diabetic cataract; Y79.2 Prosthetic and other implants, materials and accessory orthopedic devices associated with adverse incidents; E11.42 Type 2 diabetes mellitus with diabetic polyneuropathy; M16.11 Unilateral primary osteoarthritis, right hip; M85.88 Other specified disorders of bone density and structure, other site; H18.891 Other specified disorders of cornea, right eye; M21.371 Foot drop, right foot; Z66 Do not resuscitate; F41.8 Other specified anxiety disorders; H10.9 Unspecified conjunctivitis; D64.9 Anemia, unspecified; R33.9 Retention of urine, unspecified; R39.15 Urgency of urination; R00.0 Tachycardia, unspecified; R42 Dizziness and giddiness; Z86.718 Personal history of other venous thrombosis and embolism; Y92.9 Unspecified place or not applicable; Z86.711 Personal history of pulmonary embolism; Z79.84 Long term (current) use of oral hypoglycemic drugs; Z79.899 Other long term (current) drug therapy
CPT/HCPCS: 36415; 80048; 81003; 82330; 82607; 82728; 82746; 83540; 83550; 85014; 85018; 85025; 85610; 86850; 86900; 86901; 86922; 87641; 88300; 90686; 99284; A9270-GY; C1713; C1776; G8978-GP-CM; G8979-GP-CI; J0610; J0690; J1100; J1650; J2405; J2704; J2710; J2795; J3010; P9040

== ENCOUNTER 2019-06-01 02:59 | Inpatient (IN) | payer MEDICARE ==
[2019-06-01] MEDS ORDERED: NS 0.9% 1000 ML** 1,000 ML IV ONE ×2 (03:09→03:10)
[2019-06-01] MEDS ORDERED: Adenosine* 3 MG/ML VIAL IV PUSH ONE (03:10)
[2019-06-01] MEDS ORDERED: Adenosine* 3 MG/ML VIAL ONE (03:13)
--- NOTE | 2019-06-01 03:24 | ED ---
Complex/Multi-Sys Presentation - HPI Summary HPI Summary: 79 year old female presents to the ED by EMS due to tachycardia and hypotension. THIS IS A LEVEL 5 CAVEAT DUE TO DEMENTIA. According to EMS, patient was discharged from [facility] today following a hip replacement surgery when her caretakers noticed she had high heart rate and low blood pressure. Patient has a history of DM and DVT. - History Of Current Complaint Chief Complaint: EDGeneral Time Seen by Provider: 06/01/19 03:02 Hx Obtained From: EMS Hx From Patient Unobtainable Due To: Dementia Associated Signs And Symptoms: Positive: Decreased Responsiveness, Confusion Related History: Recent Hospitalization - Hip dislocation and reduction - Allergies/Home Medications Allergies/Adverse Reactions: Allergies Allergy/AdvReac Type Severity Reaction Status Date / Time No Known Allergies Allergy Verified 06/01/19 04:07 Home Medications: Home Medications Enoxaparin Sodium [Lovenox] 40 mg SUBCUT Q12H 06/01/19 [History Confirmed ] Oxycodone HCl/Acetaminophen [Percocet 5-325 mg Tablet] 1 tab PO Q6H PRN [History Confirmed 06/01/19] Oxycodone HCl/Acetaminophen [Percocet 5-325 mg Tablet] 2 tab PO Q6H PRN [History Confirmed 06/01/19] cephALEXin [Keflex] 500 mg PO TID 06/01/19 [History Confirmed 06/01/19] PMH/Surg Hx/FS Hx/Imm Hx Endocrine/Hematology History: Reports: Hx Diabetes, Hx Thyroid Disease - THYROID LEVELS FINE NOW Cardiovascular History: Reports: Hx Deep Vein Thrombosis - filter inserted Denies: Other Cardiovascular Problems/Disorders - HX BLOOD CLOTS RIGHT LEG Respiratory History: Reports: Hx Asthma - DAILY MEDS AND RESCUE BREATHER Denies: Other Respiratory Problems/Disorders History: Denies: Other Problems/Disorders Musculoskeletal History: Reports: Hx Arthritis - rheumatoid arthritis, Other Musculoskeletal History - 5 RIGHT HIP LISLOCATIONS Denies: Hx Osteoporosis Sensory History: Reports: Hx Cataracts, Hx Contacts or Glasses Denies: Hx Hearing Aid Opthamlomology History: Reports: Hx Cataracts, Hx Contacts or Glasses Neurological History: Reports: Hx Nerve Disease - CURRENT SHINGLES LEFT ARM AND LEFT PALM Denies: Other Neuro Impairments/Disorders Psychiatric History: Reports: Hx Depression - MILD, ON MEDS - Surgical History Surgery Procedure, Year, and Place: RIGHT HIP total replacement in 2009 with revision in 2013, Dr. Garcia at [facility]. April 2019, surgery for right hip dislocation Hx Anesthesia Reactions: No Infectious Disease History: No Infectious Disease History: Reports: Hx Shingles - CURRENTLY, MD AWARE Denies: Hx Clostridium Difficile, Hx Hepatitis, Hx Human Immunodeficiency Virus (HIV), Hx of Known/Suspected MRSA, Hx Tuberculosis, Hx Known/Suspected VRE , Hx Known/Suspected VRSA, History Other Infectious Disease, Traveled Outside the [place] in Last 30 Days - Family History Known Family History: Positive: Hypertension, Diabetes - Social History Alcohol Use: None Hx Substance Use: No Substance Use Type: Reports: None Hx Tobacco Use: No Smoking Status (MU): Never Smoked Tobacco Have You Smoked in the Last Year: No Review of Systems - ROS Summary Review of Systems Summary: Home Medications Medication Instructions Recorded Confirmed Type Citalopram TAB* [Celexa TAB*] 20 mg PO DAILY 02/23/13 05/27/19 History Mometasone NASAL (NF) [Nasonex 1 spray PO DAILY 02/23/13 05/27/19 History (NF)] Mycophenolate Mofetil TAB(*) 1,000 mg PO BID 02/23/13 05/27/19 History [Cellcept TAB(*)] Erythromycin OPTH OINT* 1 applic RIGHT EYE QID 08/08/17 05/27/19 History [Erythromycin 0.5% OPTH OINT*] Calcium Carbonate/Vitamin D3 1 each PO DAILY 12/28/17 05/27/19 History [Calcium 500 + Vit D Caplet] metFORMIN* [Glucophage 500 MG TAB 1,000 mg PO BID 12/28/17 05/27/19 History *] Potassium Chlor TAB* [Potassium 20 meq PO BID tab.er 05/22/19 05/27/19 Rx Chlor TAB 20 MEQ*] Enoxaparin Sodium [Lovenox] 40 mg SUBCUT Q12H 06/01/19 06/01/19 History Oxycodone HCl/Acetaminophen 1 tab PO Q6H PRN 06/01/19 06/01/19 History [Percocet 5-325 mg Tablet] Oxycodone HCl/Acetaminophen 2 tab PO Q6H PRN 06/01/19 06/01/19 History [Percocet 5-325 mg Tablet] cephALEXin [Keflex] 500 mg PO TID 06/01/19 06/01/19 History Negative: Fever Positive: Other - Tachycardia and hypotension per EMS All Other Systems Reviewed And Are Negative: No Physical Exam - Summary Physical Exam Summary: THIS IS A LEVEL 5 CAVEAT. PATIENT IS DEMENTED. General: Well-developed, Well-nourished female. No acute distress.Demented, confused. Right eye does not open during exam. HEENT: Normocephalic, Atraumatic. Eyes: Conjuctiva normal, PERRL. Ears: TMs within normal limits. Nares: (-) discharge, (-) erythema. Oropharynx: Clear, mucous membranes moist, (-) exudates. Neck: Soft, FROM, (-) lymphadenopathy, (-) thyromegaly, (-) JVD. Cardiovascular: SVT, (-) murmur, hypotensive. Lungs: Clear to auscultation bilaterally (-) wheezes, (-) rales, (-) rhonchi. Abdomen: Soft, non-tender, non-distended, (-) organomegaly, normal bowel sounds. Back: (-) CVA tenderness Extremities: No edema. Skin: Warm, dry, (-) rash. Neuro: Oriented x1, no focal deficits. Psychiatric: Mood normal, affect normal. Triage Information Reviewed: Yes Vital Signs On Initial Exam: Initial Vitals Temp Pulse Resp BP Pulse Ox 97.7 F 162 16 87/59 97 06/01/19 03:01 06/01/19 03:01 06/01/19 03:01 06/01/19 03:01 06/01/19 03:01 Vital Signs Reviewed: Yes Completion Of Physical Exam Limited Due To: Dementia, Level 5 Procedures - Sedation Patient Received Moderate/Deep Sedation with Procedure: No Diagnostics - Vital Signs Vital Signs Temp Pulse Resp BP Pulse Ox 06/01/19 03:06 161 8 97 06/01/19 03:05 161 15 97 06/01/19 03:01 97.7 F 162 16 87/59 97 - Laboratory Result Diagrams: 06/01/19 03:52 06/01/19 03:52 Lab Statement: Any lab studies that have been ordered have been reviewed, and results considered in the medical decision making process. - Radiology CXR Radiology Interpretation Completed By: ED Physician Summary of Radiographic Findings: Impression shows no infiltrate, no pleural effusion. Dr. Osei has reviewed and interpreted this EKG. - EKG 0305 Cardiac Rate: Tachycardia - 160 bpm EKG Rhythm: SVT ST Segment: Normal Summary of EKG Findings: EKG at 0305 shows tachycardia at 160 bpm. SVT. No STEMI. [address]. Osei has interpreted and reviewed this EKG. 0314 Cardiac Rate: NL - 88 bpm EKG Rhythm: Sinus Rhythm ST Segment: Normal Summary of EKG Findings: EKG at 0314 shows normal sinus rhythm at [address] Osei has interpreted and reviewed this EKG. Complex Multi-Symp Course/Dx Course Of Treatment: 79-year-old female with tachycardia and hypotension. Just discharged from this hospital after hip replacement. Patient with dementia. No complaints. Found to be in SVT upon arrival at 160. SVT broke with adenosine. Troponin came back mildly elevated. Patient referred to hospitalist for admission. - Diagnoses Provider Diagnoses: SVT (supraventricular tachycardia), Elevated troponin - Physician Notifications Discussed Care Of Patient With: Gadiel Snell - Hospitalist Time Discussed With Above Provider: 04:58 Instructed by Provider To: Admit As Inpatient - Spoke to Dr. Snell, Hospitalist , who accepted patient for admission. Admit/Transition Orders Completed By ED Provider: Yes Discharge ED - Sign-Out/Discharge Documenting (check all that apply): Patient Departure - Admit - Discharge Plan Condition: Stable Disposition: ADMITTED TO [facility] Referrals: Anthony Garvey MD [Primary Care Provider] - - Billing Disposition and Condition Condition: STABLE Disposition: Admitted to [facility] - Attestation Statements Document Initiated by Rashmiibe: Yes Documenting Scribe: Jaden Howell Provider For Whom Mundo is Documenting (Include Credential): Cherise Osei MD. Scribe Attestation: Jaden Sebastian scribed for Cherise Osei MD. on 06/01/19 at 0609. Scribe Documentation Reviewed: Yes Provider Attestation: The documentation as recorded by the [email or web address] accurately reflects the service I personally performed and the decisions made by me, Cherise Osei MD. Status of Scribe Document: Viewed
[2019-06-01 04:00] LABS: ABS Basophils 0.1 10^3/ul (0-0.2); ABS Lymphocytes 1.4 10^3/ul (1.0-4.8); ABS Monocytes 0.4 10^3/ul (0-0.8); Eosinophil % 0.2 %; Hematocrit 30 % (35-47); Hemoglobin 9.7 g/dL (12.0-16.0); Lymphocyte % 10.8 %; Mean Corpuscular HGB Conc 32 g/dL (31-36); Mean Corpuscular Hemoglobin 28 pg (27-31); Mean Corpuscular Volume 88 fL (80-97); Mean Platelet Volume 6.9 fL (7.4-10.4); Platelet Count 491 10^3/uL (150-450); Red Blood Count 3.41 10^6 /uL (3.70-4.87); Red Cell Distribution Width 16 % (10-15)
[2019-06-01 04:06] LABS: Activated Partial Thrombo Time 34.6 seconds (26.0-38.0); INR 1.16 (0.82-1.09)
[2019-06-01 04:15] LABS: ALT 26 U/L (7-52); AST 51 U/L (13-39); Albumin 3.3 g/dL (3.2-5.2); Albumin/Globulin Ratio 1.3 (1-3); Alkaline Phosphatase 51 U/L (34-104); BUN/Creatinine Ratio 28.8 (8-20); Blood Urea Nitrogen 19 mg/dL (6-24); CO2 Carbon Dioxide 22 mmol/L (22-32); Calcium 8.2 mg/dL (8.6-10.3); Chloride 101 mmol/L (101-111); Globulin 2.5 g/dL (2-4); Glucose 329 mg/dL (70-100); Sodium 131 mmol/L (135-145); Total Protein 5.8 g/dL (6.4-8.9)
[2019-06-01 04:16] LABS: Anion Gap 8 mmol/L (2-11); Potassium 5.8 mmol/L (3.5-5.0)
[2019-06-01 04:21] LABS: Troponin I 0.04 ng/mL (<0.04)
[2019-06-01 05:30] LABS: Urine Appearance Cloudy; Urine Bilirubin Negative (Negative); Urine Blood Negative (Negative); Urine Color Yellow; Urine Glucose 3+(>=500 mg/dL) (Negative); Urine Ketones Negative (Negative); Urine Nitrite Negative (Negative); Urine Protein Negative (Negative); Urine Urobilinogen Negative (Negative)
[2019-06-01] MEDS ORDERED: oxyCODONE/Acetamin 5/325 MG* TAB PO PRN ×2 (06:22)
[2019-06-01] MEDS ORDERED: NS 0.9% 1000 ML** 1,000 ML IV SCH (06:30)
[2019-06-01] MEDS ORDERED: Enoxaparin(*) 40 MG/0.4 ML SYR SUBCUT SCH (07:00)
[2019-06-01] MEDS ORDERED: Sodium Polystyrene ORAL.SOL* 15 GM/60 ML BTL PO ONE (07:20)
[2019-06-01 07:33] LABS: Magnesium 2.3 mg/dL (1.9-2.7)
[2019-06-01 07:56] LABS: Troponin I 0.13 ng/mL (<0.04)
[2019-06-01] MEDS ORDERED: Cephalexin CAP* 500 MG PO SCH (09:00)
[2019-06-01] MEDS: Fluticasone NASAL SPRAY 50MCG* 16 gm SPRAY BTL BOTH NARES SCH (09:15)
[2019-06-01] MEDS: Calcium/Vitamin D TAB 250/125* TAB PO SCH (09:16)
[2019-06-01] MEDS: Mycophenolate Mofetil TAB(*) 500 MG PO SCH ×2 (09:16→21:06)
[2019-06-01] MEDS: Erythromycin OPTH OINT* APPLIC OINT BOTH EYES SCH ×4 (09:16→21:06)
[2019-06-01] MEDS: Citalopram TAB* 20 MG PO SCH (09:17)
[2019-06-01] MEDS: metFORMIN* 500 MG TAB PO SCH ×2 (09:18→17:18)
[2019-06-01] MEDS: Enoxaparin(*) 30 MG/0.3 ML SYR SUBCUT SCH ×2 (09:18→21:05)
--- NOTE | 2019-06-01 09:33 | HP ---
CC: Dr. Anthony Garvey * ADMISSION HISTORY AND PHYSICAL: DATE OF ADMISSION: 06/01/19 PRIMARY CARE PHYSICIAN: Dr. Anthony Garvey. CHIEF COMPLAINT: Decreased mentation, hypotension, tachycardia. HISTORY OF PRESENT ILLNESS: This is an 79-year-old female with past medical history of diabetes, recent right total hip revision due to dislocation of a previous revision, was discharged back to the [facility] on . According to the son who was present at bedside, the patient did not eat lunch as transfer happened just around lunchtime and even dinner she probably did not eat much as she has not had much appetite and likely the patient got dehydrated due to this as the patient still complains of being very thirsty and dry in her mouth, and while at the [facility], a nurse noticed that the patient was very pale, clammy, sweating profusely, tachycardic, and hypotensive. Tachycardia was noted to be around 160 to 165. Temperature was recorded at the senior care at 97.4, and she was started on some IV fluids; however, she did not improve. The son was called at bedside and given that she was not improving much, she finally was sent to the emergency room. Upon arrival to the ER, she was noted to be in SVT and was given adenosine which reversed her condition. The patient otherwise offers no complaints at this point. She is minimally confused, although she knew the rough month and the location that she is in. She could not tell me the reason why she came in. She kept mentioning that it was because of her right hip, which was the reason for the previous admission but not in the current admission. 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 History of some foot drop and nerve damage on the right due to hematoma, and history of rheumatoid arthritis along with osteoarthritis. 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 PAST SURGICAL HISTORY: She has had surgery of her hip in 2009 with a followup of constrained liner placement on the femoral head in 2013 and now had another revision of the total hip with constrained liner placement and femoral head exchange on 05/18/19 with re-revision within a week later due to malposition of acetabular component on 05/29/19. HOME MEDICATIONS: Currently on: 1. Percocet 1 tablet every 6 hours as needed for mild pain and 2 tablets as needed for moderate pain. 2. Metformin 1000 mg p.o. b.i.d. 3. Potassium chloride 20 mEq oral twice a day. 4. CellCept 1000 mg p.o. b.i.d. 5. Erythromycin 1 topical both eyes q.i.d. 6. Mometasone 1 spray both nares daily. 7. Lovenox 40 mg subcutaneous q.12 hours. 8. Keflex 500 mg p.o. t.i.d. 9. Citalopram 20 mg oral daily. 10. Calcium carbonate with vitamin D3 one tablet oral daily. ALLERGIES: No known drug allergies. FAMILY HISTORY: Noncontributory at her age. SOCIAL HISTORY: Nonsmoker, nondrinker, has been previously living at the [facility] and recently discharged to [facility]. She is DNR/DNI with MOLST previously filled on her last admission and the son states that the MOLST has not been changed or reversed in any way from 05/16/19, which states she is DNR/DNI and no feeding tube but okay with a trial of IV fluids and a trial of antibiotics. Her son Vasyl who is at bedside is her surrogate decision maker with her other son being secondary decision maker whose name is Lane. REVIEW OF SYSTEMS: A 14-point review of systems did not reveal any new information other than what is mentioned in the HPI. PHYSICAL EXAMINATION GENERAL: The patient is arousable, knows that she is in the hospital and knew she was at the [facility] but thought it was March, but upon correction, she stated that "oh yes there was ow recently," so she corrected herself and stated that it is May 2019, although she was unable to recollect the reason she was sent to the ER today. VITAL SIGNS: In the ER, initial BP was noted to be 87/59 and initial heart rate was noted to be around 160. Subsequent post 2 L of IV fluids and adenosine therapy, the patient's BP was noted to be 104/64 with heart rate improved to 80. Temperature was recorded at 97.7, respiration rate 18, saturating 98% on room air. HEAD AND NECK: Atraumatic, normocephalic. Pupil is reactive on the left and right eye is closed. Oral mucosa was very dry. NECK: Supple. No jugular venous distention. LUNGS: Clear to auscultation bilaterally. No wheezing, rhonchi, or rales. HEART: S1 and S2. Regular rate and rhythm. ABDOMEN: Soft, nontender, nondistended. EXTREMITIES: No cyanosis, clubbing, or edema. The legs were noted to be in immobilization device. DIAGNOSTIC STUDIES/LAB DATA: CBC shows minimally elevated white count of 13.0 , hemoglobin and hematocrit stable at 10.7 and 30, platelet count was noted to be 491. Coagulation profile shows minimally elevated INR of 1.16. Comprehensive metabolic panel shows elevated potassium at 5.8 but otherwise rest of the labs were normal. Glucose was elevated at 356. Lactic acid elevated at 3.2. LFTs were within normal limits. Troponin minimally elevated at 0.04. Urinalysis, urine showed cloudy urine but otherwise negative for any leuk esterase or nitrites but positive for 3+ glucose and ascorbic acid. IMPRESSION: This is an 79-year-old female with multiple medical problems including diabetes, rheumatoid arthritis, depression, noted to have episode of supraventricular tachycardia likely secondary to dehydration. ASSESSMENT AND PLAN: 1. Supraventricular tachycardia likely secondary to dehydration, improved with adenosine therapy. We will monitor on telemetry. We will get an echocardiogram to rule out any structural heart disease and consider a cardiology consultation. 2. Dehydration and hypotension. We will continue with IV fluid administration. 3. Elevated random glucose. We will start the patient on fingersticks and her home dose of metformin and monitor the patient's fingersticks with metformin usage to see if the patient needs an additional medication to cover her diabetes. 4. Lactic acidosis likely secondary to dehydration. We will repeat level to check for improvement. 5. History of rheumatoid arthritis. Restart home medications. 6. History of depression. Restart home medications. 7. Recent right hip replacement. We will continue the Lovenox full dose as recommended by Dr. Garcia. 8. Code status: DNR/DNI with her sons being surrogate decision makers. [id number]/[facility] #: [id number] [facility] MEDICAL CENTERMargot
--- NOTE | 2019-06-01 10:35 | PN ---
Subjective Date of Service: 06/01/19 Interval History: Ms. Bermudez is feeling well today. Her memories of yesterday and last night are vague. She reports an uneventful night. Denies CP, N/V, dizziness. Reports mild SOB. Son at bedside updated on plan. No concerns from nursing. Family History: Unchanged from Admission Social History: Unchanged from Admission Past Medical History: Unchanged from Admission Objective Active Medications: Calcium/Vitamin D (Oscal D Tab 250/125*) 1 tab PO DAILY VALE Citalopram Hydrobromide (Celexa Tab*) 20 mg PO DAILY VALE Enoxaparin Sodium (Lovenox(*)) 30 mg SUBCUT Q12H VALE Erythromycin (Erythromycin Opth Oint*) 1 applic BOTH EYES QID VALE Fluticasone Propionate (Flonase Nasal [place] 50mcg*) 1 spray BOTH NARES DAILY VALE Sodium Chloride (Ns 0.9% 1000 Ml) 1,000 mls @ 100 mls/hr IV PER RATE VALE Metformin HCl (Glucophage*) 1,000 mg PO BID WITH MEALS VALE Mycophenolate Mofetil (Cellcept Tab(*)) 1,000 mg PO BID VALE Oxycodone/Acetaminophen (Percocet 5/325 Tab*) 1 tab PO Q6H PRN PAIN - MILD Oxycodone/Acetaminophen (Percocet 5/325 Tab*) 2 tab PO Q6H PRN PAIN - MODERATE Vital Signs - 8 hr 06/01/19 06/01/19 06/01/19 03:01 03:05 03:06 Temperature 97.7 F Pulse Rate 162 161 161 Respiratory 16 15 8 Rate Blood Pressure 87/59 (mmHg) O2 Sat by Pulse 97 97 97 Oximetry 06/01/19 06/01/19 06/01/19 03:14 03:16 03:19 Temperature Pulse Rate 160 95 87 Respiratory 19 19 16 Rate Blood Pressure 87/68 119/63 107/63 (mmHg) O2 Sat by Pulse 96 97 96 Oximetry 06/01/19 06/01/19 06/01/19 03:24 03:29 03:34 Temperature Pulse Rate 92 Respiratory 21 16 17 Rate Blood Pressure 103/60 106/59 107/59 (mmHg) O2 Sat by Pulse 95 Oximetry 06/01/19 06/01/19 06/01/19 03:39 03:50 03:51 Temperature Pulse Rate 88 Respiratory 16 22 Rate Blood Pressure 106/63 106/52 (mmHg) O2 Sat by Pulse 97 98 Oximetry 06/01/19 06/01/19 06/01/19 03:59 04:00 04:25 Temperature Pulse Rate 86 90 Respiratory 15 17 17 Rate Blood Pressure 103/59 110/64 (mmHg) O2 Sat by Pulse 97 97 Oximetry 06/01/19 06/01/19 06/01/19 04:55 05:00 05:25 Temperature Pulse Rate 83 83 84 Respiratory 15 21 20 Rate Blood Pressure 102/65 115/63 (mmHg) O2 Sat by Pulse 97 97 96 Oximetry 06/01/19 06/01/19 06/01/19 05:55 06:00 06:25 Temperature Pulse Rate 82 80 80 Respiratory 18 12 9 Rate Blood Pressure 105/64 113/64 (mmHg) O2 Sat by Pulse 98 97 97 Oximetry 06/01/19 06/01/19 06/01/19 06:55 07:00 07:25 Temperature Pulse Rate 80 79 82 Respiratory 19 21 30 Rate Blood Pressure 106/62 (mmHg) O2 Sat by Pulse 96 97 96 Oximetry 06/01/19 06/01/19 08:30 08:36 Temperature 98.4 F 98.8 F Pulse Rate 82 80 Respiratory 14 19 Rate Blood Pressure 108/53 111/71 (mmHg) O2 Sat by Pulse 99 97 Oximetry Oxygen Devices in Use Now: None Appearance: Elderly female sitting in bed in NAD Ears/Nose/Mouth/Throat: Mucous Membranes Moist Neck: NL Appearance and Movements; NL JVP, Trachea Midline Respiratory: Symmetrical Chest Expansion and Respiratory Effort, Clear to Auscultation Cardiovascular: NL Sounds; No Murmurs; No JVD, RRR Abdominal: NL Sounds; No Tenderness; No Distention Extremities: No Edema Neurological: Alert and Oriented x 3 Lines/Tubes/Other Access: Clean, Dry and Intact Peripheral IV Nutrition: Taking PO's Result Diagrams: 06/01/19 03:52 06/01/19 03:52 Assess/Plan/Problems-Billing Assessment: Ms. Bermudez is an 79 yo F with PMH of DM2, depression, anxiety, DVT/PE s/p [place] sunday, RA; who was hospitalized from 05/27/19 - 05/31/19 for right total hip revision d/t dislocation, then d/c'd to [facility] at [facility]; presented to the ED with AMS and tachycardia and was found to be in SVT. - Patient Problems (1) SVT (supraventricular tachycardia) Code(s): I47.1 - SUPRAVENTRICULAR TACHYCARDIA Comment: - New onset, symptomatic - EKG in ED showing SVT in the 160s, resolved after one dose of adenosine - Suspected secondary to dehydration - No further arrhythmias on telemetry - Echo tomorrow - Will hold off on medication or Cardiology consult unless SVT recurs (2) Elevated troponin Code(s): R79.89 - OTHER SPECIFIED ABNORMAL FINDINGS OF BLOOD CHEMISTRY Comment : - Currently 0.15 - No EKG changes or CP - Suspect secondary to SVT demand ischemia - Recheck in 3 hours (3) Lactic acidosis Code(s): E87.2 - ACIDOSIS Comment: - Resolved with IVF - No evidence of infectious process - Suspect secondary to dehydration (4) Dehydration Code(s): E86.0 - DEHYDRATION Comment: - Resolved - With associated hypotension - D/c IVF (5) Bacterial conjunctivitis of both eyes Code(s): H10.9 - UNSPECIFIED CONJUNCTIVITIS Comment: - Continue erythromycin ointment (6) Status post right hip replacement Code(s): Z96.641 - PRESENCE OF RIGHT ARTIFICIAL HIP JOINT Comment: - S/p revision d/t dislocation - Ortho aware of readmission, but does not have acute concerns at this time - Continue Percocet, cephalexin, Lovenox (7) Diabetes mellitus Code(s): E11.9 - TYPE 2 DIABETES MELLITUS WITHOUT COMPLICATIONS Comment: - Moderate glucose control - Continue metformin; start Lispro SS (8) Rheumatoid arthritis Code(s): M06.9 - RHEUMATOID ARTHRITIS, UNSPECIFIED Comment: - Continue Cellcept (9) History of venous thromboembolism Code(s): Z86.718 - PERSONAL HISTORY OF OTHER VENOUS THROMBOSIS AND EMBOLISM Comment: - S/p IVC filter - Continue Lovenox (10) Depression with anxiety Code(s): F41.8 - OTHER SPECIFIED ANXIETY DISORDERS Comment: - Continue citalopram (11) DVT prophylaxis Code(s): Z29.9 - ENCOUNTER FOR PROPHYLACTIC MEASURES, UNSPECIFIED Comment: - Lovenox (12) DNR (do not resuscitate) Comment: Status and Disposition: Inpatient. Anticipate d/c back to [facility] when medically stable. Attending: Kike Pearson
[2019-06-01 10:43] LABS: Troponin I 0.15 ng/mL (<0.04)
[2019-06-01] MEDS ORDERED: Dextrose 50% VIAL 50 ml IV PUSH PRN (10:49)
[2019-06-01] MEDS: Insulin LISPRO* 1 UNITS UNIT SUBCUT SCH ×2 (12:30→17:18)
[2019-06-01] MEDS: Cephalexin CAP* 500 MG PO SCH ×2 (13:16→21:06)
[2019-06-01 13:27] LABS: BUN/Creatinine Ratio 42.1 (8-20); Calcium 7.7 mg/dL (8.6-10.3); EGFR African American 196.7 (>60); EGFR Non-African American 162.5 (>60)
[2019-06-01 13:35] LABS: Troponin I 0.14 ng/mL (<0.04)
[2019-06-02 06:26] LABS: ABS Basophils 0.1 10^3/ul (0-0.2); ABS Eosinophils 0.7 10^3/ul (0-0.6); ABS Lymphocytes 1.8 10^3/ul (1.0-4.8); ABS Monocytes 0.6 10^3/ul (0-0.8); ABS Neutrophils 4.4 10^3/ul (1.5-7.7); Eosinophil % 9.3 %; Hematocrit 27 % (35-47); Lymphocyte % 23.4 %; Mean Corpuscular HGB Conc 33 g/dL (31-36); Mean Corpuscular Hemoglobin 29 pg (27-31); Mean Corpuscular Volume 87 fL (80-97); Mean Platelet Volume 6.7 fL (7.4-10.4); Platelet Count 474 10^3/uL (150-450); Red Blood Count 3.14 10^6 /uL (3.70-4.87); Red Cell Distribution Width 16 % (10-15); White Blood Count 7.6 10^3/uL (3.5-10.8)
[2019-06-02 06:33] LABS: Anion Gap 4 mmol/L (2-11); BUN/Creatinine Ratio 33.3 (8-20); Blood Urea Nitrogen 13 mg/dL (6-24); CO2 Carbon Dioxide 27 mmol/L (22-32); Calcium 7.6 mg/dL (8.6-10.3); Chloride 104 mmol/L (101-111); EGFR African American 190.9 (>60); EGFR Non-African American 157.7 (>60); Glucose 147 mg/dL (70-100); Potassium 3.8 mmol/L (3.5-5.0); Sodium 135 mmol/L (135-145)
--- NOTE | 2019-06-02 09:40 | PN ---
Subjective Date of Service: 06/02/19 Interval History: Ms. Bermudez is feeling well. She had a good night and slept well. She thinks the hospital is trying to "overstuff" her by giving her too much food. Denies CP, SOB. No palpitations. No concerns from nursing. Tele: NSR in the 60-90s. No SVT. Family History: Unchanged from Admission Social History: Unchanged from Admission Past Medical History: Unchanged from Admission Objective Active Medications: Calcium/Vitamin D (Oscal D Tab 250/125*) 1 tab PO DAILY VALE Cephalexin HCl (Keflex Cap*) 500 mg PO TID VALE Citalopram Hydrobromide (Celexa Tab*) 20 mg PO DAILY VALE Dextrose (Dextrose 50% Vial 50 Ml*) 25 ml IV PUSH .FOR FS < 60 - SS PRN FS < 60 Enoxaparin Sodium (Lovenox(*)) 30 mg SUBCUT Q12H VALE Erythromycin (Erythromycin Opth Oint*) 1 applic BOTH EYES QID VALE Fluticasone Propionate (Flonase Nasal [place] 50mcg*) 1 spray BOTH NARES DAILY VALE Insulin Human Lispro (Humalog*) 0 units SUBCUT AC VALE; Protocol Metformin HCl (Glucophage*) 1,000 mg PO BID WITH MEALS VALE Mycophenolate Mofetil (Cellcept Tab(*)) 1,000 mg PO BID VALE Oxycodone/Acetaminophen (Percocet 5/325 Tab*) 1 tab PO Q6H PRN PAIN - MILD Oxycodone/Acetaminophen (Percocet 5/325 Tab*) 2 tab PO Q6H PRN PAIN - MODERATE Vital Signs - 8 hr 06/02/19 06/02/19 03:15 05:19 Temperature 97.3 F Pulse Rate 75 Respiratory 16 14 Rate Blood Pressure 108/54 (mmHg) O2 Sat by Pulse 100 Oximetry Oxygen Devices in Use Now: None Appearance: Elderly female sitting in bed in NAD Ears/Nose/Mouth/Throat: Mucous Membranes Moist Neck: NL Appearance and Movements; NL JVP, Trachea Midline Respiratory: Symmetrical Chest Expansion and Respiratory Effort, Clear to Auscultation Cardiovascular: NL Sounds; No Murmurs; No JVD, RRR Abdominal: NL Sounds; No Tenderness; No Distention Extremities: No Edema Neurological: Alert and Oriented x 3 Lines/Tubes/Other Access: Clean, Dry and Intact Peripheral IV Nutrition: Taking PO's Result Diagrams: 06/02/19 05:27 06/02/19 05:27 Assess/Plan/Problems-Billing Assessment: Ms. Bermudez is an 79 yo F with PMH of DM2, depression, anxiety, DVT/PE s/p [place] filter, RA; who was hospitalized from 05/27/19 - 05/31/19 for right total hip revision d/t dislocation, then d/[facility]'d to [facility] at [facility]; presented to the ED with AMS and tachycardia and was found to be in SVT. - Patient Problems (1) SVT (supraventricular tachycardia) Code(s): I47.1 - SUPRAVENTRICULAR TACHYCARDIA Comment: - New onset, symptomatic - EKG in ED showing SVT in the 160s, resolved after one dose of adenosine - Suspected secondary to dehydration - No further arrhythmias on telemetry - Echo today - Will hold off on medication or Cardiology consult unless SVT recurs (2) Elevated troponin Code(s): R79.89 - OTHER SPECIFIED ABNORMAL FINDINGS OF BLOOD CHEMISTRY Comment : - Currently 0.15 - Asymptomatic - EKG shows some T wave flattening and boderline ST depression, but does appear mostly consistent with previous; EKG after resolution of SVT showed some peaked T waves which have resolved - Suspect secondary to SVT demand ischemia, but would benefit from an outpatient stress test if she is agreeable (3) Lactic acidosis Code(s): E87.2 - ACIDOSIS Comment: - Resolved with IVF - No evidence of infectious process - Suspect secondary to dehydration (4) Dehydration Code(s): E86.0 - DEHYDRATION Comment: - Resolved - With associated hypotension - D/c IVF (5) Anemia Code(s): D64.9 - ANEMIA, UNSPECIFIED Comment: - Consistent with prior hospitalization and stable - Not iron deficient based on recent iron studies - Suspect this is mostly attributable to acute blood loss from surgery (6) Bacterial conjunctivitis of both eyes Code(s): H10.9 - UNSPECIFIED CONJUNCTIVITIS Comment: - Continue erythromycin ointment (7) Status post right hip replacement Code(s): Z96.641 - PRESENCE OF RIGHT ARTIFICIAL HIP JOINT Comment: - S/p revision d/t dislocation - Ortho aware of readmission, but does not have acute concerns at this time - Hip precautions - Continue Percocet, cephalexin, Lovenox (8) Diabetes mellitus Code(s): E11.9 - TYPE 2 DIABETES MELLITUS WITHOUT COMPLICATIONS Comment: - Moderate glucose control - Continue metformin; start Lispro SS (9) Rheumatoid arthritis Code(s): M06.9 - RHEUMATOID ARTHRITIS, UNSPECIFIED Comment: - Continue Cellcept (10) History of venous thromboembolism Code(s): Z86.718 - PERSONAL HISTORY OF OTHER VENOUS THROMBOSIS AND EMBOLISM Comment: - S/p IVC filter - Continue Lovenox (11) Depression with anxiety Code(s): F41.8 - OTHER SPECIFIED ANXIETY DISORDERS Comment: - Continue citalopram (12) DVT prophylaxis Code(s): Z29.9 - ENCOUNTER FOR PROPHYLACTIC MEASURES, UNSPECIFIED Comment: - Lovenox (13) DNR (do not resuscitate) Comment: Status and Disposition: Inpatient. Anticipate d/c back to [facility] when medically stable, likely tomorrow after echo. Attending: Kike Pearson
[2019-06-02] MEDS: Enoxaparin(*) 30 MG/0.3 ML SYR SUBCUT SCH ×2 (09:54→19:28)
[2019-06-02] MEDS: Insulin LISPRO* 1 UNITS UNIT SUBCUT SCH ×3 (09:54→17:14)
[2019-06-02] MEDS: Mycophenolate Mofetil TAB(*) 500 MG PO SCH ×2 (09:55→19:28)
[2019-06-02] MEDS: metFORMIN* 500 MG TAB PO SCH ×2 (09:55→17:14)
[2019-06-02] MEDS: Cephalexin CAP* 500 MG PO SCH ×3 (09:55→19:31)
[2019-06-02] MEDS: Calcium/Vitamin D TAB 250/125* TAB PO SCH (09:55)
[2019-06-02] MEDS: Citalopram TAB* 20 MG PO SCH (09:55)
[2019-06-02] MEDS: Fluticasone NASAL SPRAY 50MCG* 16 gm SPRAY BTL BOTH NARES SCH (09:56)
[2019-06-02] MEDS: Erythromycin OPTH OINT* APPLIC OINT BOTH EYES SCH ×4 (09:56→19:31)
[2019-06-02 10:06] LABS: Troponin I 0.06 ng/mL (<0.04)
--- NOTE | 2019-06-02 12:41 | ECHO ---
*[facility]* [place] [address] Fax #: [phone] Transthoracic Echocardiogram Patient: Janneth Bermudez : 1940 Study Date: 06/02/2019 Age: 79 Gender: F HR: 95 bpm Height: 66 in /167.6 cm BSA: 1.82 m^2 Weight: 159.7 lb /72.6 kg BMI: 25.8 kg/m^2 *Artificial Limb Maker: Denise Waldrop [facility] *Referring Physician: * Gadiel Snell *Reading Physician: * Juan Gordon MD Indications: Hypotension. Abnormal EKG. Conclusions Summary: - Left ventricle: The cavity size is mildly reduced. Wall thickness is normal. Doppler parameters are consistent with abnormal left ventricular relaxation (grade 1 diastolic dysfunction). - Pericardium, extracardiac: A small to moderate pericardial effusion is identified circumferential to the heart. The pericardial effusion is new since the study of April 2010. - Pulmonary arteries: The peak pressure during systole by Doppler is 35.0 mm Hg. Study data: Transthoracic echocardiogram. Procedure: Transthoracic echocardiography was performed. Image quality was adequate. Complete 2D, spectral Doppler, and color flow Doppler. Location: Bedside. Patient status: Inpatient. Patient room number: 438. The previous study was not available, so comparison is made to the report of April 2010. Rhythm: Normal sinus rhythm. Findings Left ventricle: The cavity size is mildly reduced. Wall thickness is normal. Systolic function is hyperdynamic. The estimated ejection fraction is 65-70%. Doppler parameters are consistent with abnormal left ventricular relaxation (grade 1 diastolic dysfunction). Right ventricle: The cavity size is normal. Systolic function is normal. Ventricular septum: The outflow septum has a sigmoid appearance. Left atrium: The atrium is small. Right atrium: The atrium is normal in size. Mitral valve: The leaflets are normal thickness. There is no evidence of stenosis. Aortic valve: The leaflets are normal thickness. There is no evidence of stenosis. There is no significant regurgitation. Tricuspid valve: The leaflets are normal thickness. There is no evidence of stenosis. There is mild regurgitation. Aorta: The aortic root appears normal. The aortic arch appears normal. Pericardium: A small to moderate pericardial effusion is identified circumferential to the heart. The pericardial effusion is new since the study of April 2010. PLX 0.7cm (left ventricle), A4C 0.6cm (left ventricle), subcostal 1.3cm (right ventricle). Respiratory variation in mitral valve is 11% and in left ventricular outflow tract is 5%. Doppler: There is no evidence of chamber collapse. Features are not consistent with tamponade physiology. Pulmonary arteries: Not well visualized. Systolic pressure is at the upper limits of normal. Systemic veins: Inferior vena cava: Not well visualized. Measurements Left ventricle Value Ref Aortic valve continued Value Ref VEGA, LAX (L) 3.1 cm 3.8 - 5.2 Peak v, S 1.39 m/sec ----- ESD, LAX 2.2 cm 2.2 - 3.5 VTI, S 20.5 cm ----- FS, LAX 31 % 27 - 45 Mean grad, S 4.0 mm Hg ----- PW, ED, LAX 0.8 cm 0.6 - 0.9 Peak grad, S 8.0 mm Hg ----- EF 60 % 54 - 74 E', lat maris, TDI (L) 6.0 cm/sec >=10.0 Mitral valve Value R ef E/e', lat maris, 10 Peak E 0.62 m/sec ---- - TDI Peak A 0.73 m/sec ----- E', med maris, TDI (L) 5.7 cm/sec >=7.0 Decel time 141 ms - ---- E/e', med amris, 11 Peak E/A ratio 0.8 ---- - TDI E', avg, TDI 5.9 cm/sec Pulmonic valve Value Ref E/e', avg, TDI 11 <=14 Peak v, S 0.78 m/sec - ---- Peak grad, S 2.0 mm Hg ----- LVOT Value Ref Peak noris, S 1.07 m/sec Tricuspid valve Value Ref Mean grad, S 2 mm Hg TR peak v 2.7 m/sec <=2.8 Peak RV-RA grad, S 29 mm Hg ----- Ventricular septum Value Ref IVS, ED (H) 1.0 cm 0.6 - 0.9 Aortic root Value Ref Root diam 2.8 cm <4.0 Right ventricle Value Ref AW thickness, ED (H) 0.6 cm 0.1 - 0.5 Ascending aorta Value Ref VEGA, LAX 1.3 cm AAo AP diam, S 2.1 cm ----- Pressure, S 37 mm Hg Aortic arch Value Ref Left atrium Value Ref Arch diam 3.0 cm ----- AP dim, ES (L) 1.50 cm 2.70 - 3.80 Decending aorta Value Ref ML dim, A4C 2.7 cm Kel peak noris 0.51 m/sec ----- SI dim, A4C 5.7 cm Pulmonary artery Value Ref Right atrium Value Ref Pressure, S 35.0 mm Hg ----- Estimated RAP 8 mm Hg Aortic valve Value Ref Maris diam, ED 1.6 cm Legend: (L) and (H) dolores values outside specified reference range. Prepared and electronically signed by Juan Gordon MD 06/02/2019 12:40
[2019-06-03 07:48] VITALS: BP 111/53
[2019-06-03] MEDS: Insulin LISPRO* 1 UNITS UNIT SUBCUT SCH (09:27)
[2019-06-03] MEDS: Cephalexin CAP* 500 MG PO SCH (09:28)
[2019-06-03] MEDS: Erythromycin OPTH OINT* APPLIC OINT BOTH EYES SCH (09:28)
[2019-06-03] MEDS: metFORMIN* 500 MG TAB PO SCH (09:28)
[2019-06-03] MEDS: Enoxaparin(*) 30 MG/0.3 ML SYR SUBCUT SCH (09:28)
[2019-06-03] MEDS: Calcium/Vitamin D TAB 250/125* TAB PO SCH (09:28)
[2019-06-03] MEDS: Citalopram TAB* 20 MG PO SCH (09:28)
[2019-06-03] MEDS: Mycophenolate Mofetil TAB(*) 500 MG PO SCH (09:29)
[2019-06-03] MEDS: Fluticasone NASAL SPRAY 50MCG* 16 gm SPRAY BTL BOTH NARES SCH (09:29)
[2019-06-03] MEDS ORDERED: Magnesium Hydroxide LIQ* 30 ML UDC PO ONE (09:54)
--- NOTE | 2019-06-03 10:33 | DS ---
CC: Dr. Anthony Garvey; [facility].* DISCHARGE SUMMARY: DATE OF ADMISSION: 06/01/19 DATE OF DISCHARGE: 06/03/19 PRIMARY CARE PROVIDER: Dr. Anthony Garvey. ATTENDING PHYSICIAN: Dr. Jailene Newton.* (DICTATED BY FELICITA GIL NP) PRIMARY DIAGNOSES: 1. Supraventricular tachycardia. 2. Troponinemia. 3. Lactic acidosis. 4. Dehydration. SECONDARY DIAGNOSES: 1. Status post right hip replacement on 05/29/19. 2. Corneal melt syndrome. 3. Acute blood loss anemia. 4. Diabetes mellitus type 2. 5. Rheumatoid arthritis. 6. History of venous thromboembolism. 7. Depression. 8. Anxiety. STUDIES WHILE IN THE HOSPITAL: 1. EKG on 06/01/19 shows supraventricular tachycardia with a rate of 160. 2. Chest x-ray on 06/01/19 reads as no active cardiopulmonary disease. 3. EKG on 06/01/19 shows normal sinus rhythm with a rate of 88, left anterior fascicular block, QTc 438. 4. EKG on 06/01/19 shows normal sinus rhythm with a left anterior fascicular block, rate of 83, QTc 501. 5. Diffusely flattened T-waves which is consistent with previous EKGs on file from April 2019, 6. Transthoracic echocardiogram on 06/02/19 reads as the left ventricular cavity size is mildly reduced. Wall thickness is normal. Doppler parameters are consistent with abnormal left ventricular relaxation, grade 1 diastolic dysfunction. 7. [id number] pericardial effusion is identified circumferential to the heart. The pericardial effusion is new since the study of April 2010. The peak pressure in the pulmonary arteries during systole by Doppler is 35 mmHg. HISTORY OF PRESENT ILLNESS AND HOSPITAL COURSE: Ms. Bermudez is an 79-year-old female with past medical history of diabetes mellitus type 2; depression; anxiety; DVT/PE, status post green tube filter; and rheumatoid arthritis, who presented to the emergency room on 06/01/19 with altered mental status and tachycardia. Please see the history and physical by Dr. Snell for complete summary of the events leading up to this hospitalization. In short, the patient was hospitalized at this facility from 05/27/19 to 05/31/19 during which time she underwent a right total hip revision due to dislocation. She was subsequently discharged to rehab at [facility]. The patient had been there for approximately 24 hours when she was noted to have altered mental status, hypotension, and tachycardia. It was noted that she had decreased p.o. intake for 24 hours due to the transfer. In the emergency room she was noted to be in supraventricular tachycardia in the 160s. She was given 1 dose of adenosine which broke the rhythm. She was noted to be significantly dehydrated and had elevated lactic acid and elevated troponin. She was admitted by the hospitalist service. The patient was given IV hydration. Troponins were trended and they were noted to peak at 0.15 though the patient was asymptomatic. Repeat EKGs did show diffuse T- wave flattening, although this is consistent with the patient's previous EKGs from prior hospitalizations. Troponins did trend down and acute coronary syndrome was not a concern at this point. Lactic acidosis did resolve with IV fluid and there was no evidence of infection. Hypotension and dehydration did also improve with fluids. The patient was noted to be anemic though this was consistent with labs from the previous hospitalization and likely just represents acute blood loss anemia from surgery. She was monitored on telemetry without any evidence of further arrhythmias. The patient's mentation has been back at her baseline and she has offered no complaints. Echo results are noted above. There is evidence of a pericardial effusion on echo. As she is asymptomatic, this is not particularly concerning at this time and is very likely attributable to the patient's rheumatoid arthritis. Today she offers no complaints except feeling tired. PHYSICAL EXAMINATION: On exam, she is alert and oriented x4. There are no focal neurological deficits. Her heart is a regular rate and rhythm without murmurs, rubs, or gallops. Her lungs are clear to auscultation without rhonchi , wheezes, or rubs. There is no edema. Ms. Bermudez is stable for discharge today. Most recent vital signs are as follows : Temp 97.7, heart rate 83, respiratory rate 16, oxygen saturation 98% on room air, blood pressure 111/53. DISCHARGE MEDICATIONS: Changed medications: 1. Potassium chloride 20 mEq p.o. daily (previously was b.i.d.) Continued Medications: 1. Calcium 500 plus vitamin D 1 tab p.o. daily. 2. Citalopram 20 mg p.o. daily. 3. Lovenox 30 mg subcu q.12 hours. 4. Erythromycin ointment 0.5% 1 application both eyes 4 times a day. 5. Metformin 1000 mg p.o. b.i.d. 6. Mometasone 1 spray both nares daily. 7. CellCept 1000 mg p.o. b.i.d. 8. Percocet 5/325 one to two tabs p.o. q.6 hours p.r.n. pain. 9. Cephalexin 500 mg p.o. t.i.d. x4 more days. DISCHARGE PLAN: Ms. Bermudez will be discharged back to rehab at [facility]. Activity will be as tolerated. She can resume previous activity instructions from Orthopedics including weightbearing as tolerated with hip precautions. Diet will be diabetic. Medications are noted as above. I have decreased the patient's potassium from b.i.d. to daily as she did come in slightly hyperkalemic, so I think much of this is attributable to dehydration that she has been off potassium while here in the hospital and potassium level has normalized. She can continue her other usual medications as noted above. The patient was previously discharged to complete 1 week of Keflex. She should continue this and her last day of Keflex will be 06/07/19. She will need to follow up with Orthopedics as previously instructed. P.o. fluids should be encouraged. She should follow up with a provider at [facility] in the next 4 to 7 days. She should return to the emergency room or the nearest hospital for any worsening of symptoms, shortness of breath, lightheadedness, dizziness, chest discomfort, fevers, chills, night sweats, loss of consciousness, or any other worrisome signs or symptoms. DISCHARGE CONDITION: Stable. DISCHARGE DISPOSITION: [facility] facility, [facility]. This is a summarized report of a complex medical history and hospital stay. For further details, please see the entire medical record. TIME SPENT: Approximately 45 minutes was spent on this discharge. FELICITA GIL, MARGARETH [id number]/[facility] #: [id number] VANESA
== END 2019-06-03 11:25 | DRG 309 ==
LOC: ED 02:59 → MEDTELE 06:20
PROVIDERS: ADMIT Internal Medicine; ATTEND Internal Medicine
DX: I47.1 Supraventricular tachycardia (principal); E87.2 Acidosis; D62 Acute posthemorrhagic anemia; I31.3 Pericardial effusion (noninflammatory); I95.9 Hypotension, unspecified; R74.8 Abnormal levels of other serum enzymes; E86.0 Dehydration; H18.899 Other specified disorders of cornea, unspecified eye; E11.9 Type 2 diabetes mellitus without complications; M06.9 Rheumatoid arthritis, unspecified; F32.9 Major depressive disorder, single episode, unspecified; Z66 Do not resuscitate; F41.9 Anxiety disorder, unspecified; H10.9 Unspecified conjunctivitis; Z96.641 Presence of right artificial hip joint; M21.371 Foot drop, right foot; M19.90 Unspecified osteoarthritis, unspecified site; Z86.718 Personal history of other venous thrombosis and embolism; Z86.711 Personal history of pulmonary embolism; Z79.84 Long term (current) use of oral hypoglycemic drugs; Z79.899 Other long term (current) drug therapy
CPT/HCPCS: 36415; 71045; 80048; 80053; 81003; 83605; 83735; 83880; 84484; 85025; 85610; 85730; 87040; 93005; 93306; 96361; 96374; 99285; A9270-GY; J0153; J1650